=== PATIENT | male | born 1960 | race Asian ===

== ENCOUNTER 2019-12-20 08:45 | Inpatient (IN) | payer MEDICAID ==
[2019-12-20] VITALS (12 sets, daily range): BP systolic 85–156; BP diastolic 43–122
[~2019-12-20] VITALS: Ht 163.8 cm; Wt 80.3 kg
--- NOTE | 2019-12-20 08:49 | NUR ---
NOTIFIED DR HOFFMAN PT IS HAVING SOB, SATURATING 80% ON RA, WHEEZING THROUGHOUT.
--- NOTE | 2019-12-20 08:53 | NUR ---
Dr. Cabrera evaluating pt at bedside
[2019-12-20] MEDS ORDERED: ALBUTEROL SULFATE/IPRATROPIU 3 ML SOL IH ONE ×2 (08:55→09:20)
[2019-12-20] MEDS ORDERED: methylPREDNISolone SS 125 MG/2 ML VIAL IM ONE (08:55)
--- NOTE | 2019-12-20 08:55 | NUR ---
59 y/o m presents to ER c/o shortness of breathe for 2-3 days. Pt was ranging 78%-80% on room air. Pt currently on 4L of O2 NC at 93%. Pt placed in high fowlers position. Pt also c/o cough and dry mouth. Pt c/o chest pain when coughing. Pain level 4/10. Audible wheezing heard throughout. 20 gauge in R. AC established. Blood collected. RT at bedside. Will continue to monitor. Allergies: NKA Med hx: asthma and HTN
--- NOTE | 2019-12-20 09:00 | NUR ---
Pt tripoding on wheelchair. Pt diaphoretic. RT at bedside. Will continue to monitor.
--- NOTE | 2019-12-20 09:06 | NUR ---
pt given solumedrol 125mg IV push per MD order.
--- NOTE | 2019-12-20 09:10 | NUR ---
Breathing treatment administered by respiratory therapist at bedside.
[2019-12-20] MEDS ORDERED: NACL 0.9% 1,000 ML IV ONE ×3 (09:20→10:30)
[2019-12-20] MEDS ORDERED: ALBUTEROL 0.083% 2.5 MG/3 ML NEBU INH ONE ×3 (09:21→10:15)
--- NOTE | 2019-12-20 09:23 | NUR ---
Secondary breathing treatment administered at bedside by respiratory therapist.
[2019-12-20] MEDS ORDERED: MAG SULF 2000 MG/WATER PREMIX 50 ML IV ONE ×2 (09:24→09:25)
[2019-12-20] MEDS ORDERED: MORPHINE SULFATE 4 MG/ML SYR IVP ONE (09:25)
[2019-12-20 09:29] LABS: BASOPHILS % (AUTO) 0.4 % (0.0-2.0); EOSINOPHILS # (AUTO) 0.4 K/uL (0-0.4); EOSINOPHILS % (AUTO) 3.2 % (0.0-4.0); HEMOGLOBIN 16.1 g/dL (12.0-18.0); LYMPHOCYTES # (AUTO) 0.9 K/uL (2.0-11.5); LYMPHOCYTES % (AUTO) 7.3 % (20.5-51.1); MEAN CORPUSCULAR HEMOGLOBIN 31 pg (27-31); MEAN CORPUSCULAR HGB CONC 33 g/dL (33-37); MEAN CORPUSCULAR VOLUME 92.9 fL (80-94); MONOCYTES # (AUTO) 0.8 K/uL (0.8-1.0); MONOCYTES % (AUTO) 6.6 % (1.7-9.3); NEUTROPHILS # (AUTO) 9.7 K/uL (1.8-7.7); NEUTROPHILS % (AUTO) 82.5 % (42.2-75.2); PLATELET COUNT (AUTO) 192 K/uL (140-450); RED BLOOD CELL COUNT(AUTO) 5.27 MIL/uL (4.20-6.10); RED CELL DISTRIBUTION WIDTH 13.7 % (11.6-13.7); WHITE BLOOD COUNT (AUTO) 11.8 K/uL (4.8-10.8)
[2019-12-20] MEDS ORDERED: LORazepam 2 MG/ML VIAL ONE ×3 (09:29→17:05)
--- NOTE | 2019-12-20 09:30 | NUR ---
recived pt in er sob gasping with wheezes hhn rx given pt continued with labored breathing placed pt on bipap with settings as charted pt seem to be christian bipap well at this time pt still with wheezes will continue to monitor pt
--- NOTE | 2019-12-20 09:32 | NUR ---
BIPAP started as requested by Dr. Cabrera. ABG obtained by respiratory therapist
--- NOTE | 2019-12-20 09:36 | NUR ---
RT administering BIPAP
--- NOTE | 2019-12-20 09:49 | NUR ---
Pt appears calm, and relaxed. Pt no longer diaphoretic. Bipap in place. Will continue to monitor.
--- NOTE | 2019-12-20 09:49 | NUR ---
EMT at bedside performing EKG
[2019-12-20] MEDS ORDERED: LORazepam 2 MG/ML VIAL IVP ONE ×2 (09:50→11:30)
[2019-12-20] MEDS ORDERED: IPRATROPIUM 0.02% 0.5 MG/2.5 ML NEBU INH ONE ×2 (09:53→10:15)
[2019-12-20 09:54] LABS: ANION GAP 18.4 (8-16); CARBON DIOXIDE 23.9 mmol/L (21-32); CREATININE 0.9 mg/dL (0.7-1.3); POTASSIUM 3.3 mmol/L (3.5-5.1)
[2019-12-20 10:00] LABS: ALBUMIN 4.3 g/dL (3.4-5.0)
[2019-12-20] MEDS ORDERED: OSELTAMIVIR PHOSPHATE 75 MG CAP PO ONE (10:05)
--- NOTE | 2019-12-20 10:20 | NUR ---
Pt resting in bed with bipap on. Will continue to monitor.
[2019-12-20] MEDS ORDERED: ONDANSETRON 4 MG/2 ML VIAL IM/IVP PRN (10:45)
[2019-12-20] MEDS ORDERED: ALBUTEROL SULFATE/IPRATROPIU 3 ML SOL IH PRN (10:45)
--- NOTE | 2019-12-20 11:20 | NUR ---
Pt appears agitated and restless. ERMD made aware.
--- NOTE | 2019-12-20 11:28 | NUR ---
Pt pulled out IV 20 gauge on Right hand
[2019-12-20] MEDS ORDERED: PIPERACILLIN/TAZOBACTAM 3.375 GM in DEXTROSE 5% 50 ML IV ONE (11:30)
--- NOTE | 2019-12-20 11:30 | NUR ---
Cardiology at bedside evaluating pt. Requesting to be placed in ICU for higher level of care.
[2019-12-20] MEDS ORDERED: LACTOBACILLUS RHAMNOSUS GG 1 EACH CAP PO SCH (11:33)
[2019-12-20 11:48] LABS: BILIRUBIN,URINE NEGATIVE (NEGATIVE); BLOOD, URINE 1+ (NEGATIVE); COLOR,URINE YELLOW (YELLOW); LEUKOCYTE ESTERASE ,URINE NEGATIVE (NEGATIVE); NITRITE, URINE NEGATIVE (NEGATIVE); PH,URINE 5.5 (5.0-9.0); UGLUCOSE NEGATIVE (NEGATIVE)
--- NOTE | 2019-12-20 11:50 | NUR ---
PT ARRIVED FROM ER IN [facility], PT SLEEPY, DIFFICULTY AROUSE, S/P ATIVAN IN ER. RESPONDS TO PAIN, REPORT RECEIVED FROM PARTH, RESP EVEN UNLABORED ON BIPAP, 10/30, O2SAT 98%, 20G IV NS BOLUS INFUSING. SITE WNL. PT PLACED ON SUPERVISOR POULTRY FARM, VITALS STABLE, GOWN CHANGED, SKIN INSPECTED, SKIN INTACT, CALL VILLAFANA WITHIN REACH, SIDE RAILS UP, POC REVIEWED, ALL SAFETY MEASURES IN PLACE.
[2019-12-20 11:53] LABS: BARBITURATE, URINE NEG. ng/ml (NEG <=200); BENZODIAZEPINE, URINE NEG. ng/mL (NEG <=200); CANNABINOID, URINE NEG. ng/mL (NEG <=50); COCAINE, URINE NEG. ng/mL (NEG <=300); OPIATE, URINE POS. ng/mL (NEG <=2000); PHENCYCLIDINE SCREEN,URINE NEG. ng/mL (NEG <=25)
--- NOTE | 2019-12-20 12:01 | NUR ---
Patient will be admitted to care of [facility]. Admited to ICU. Will go to room 8. Belongings list completed. Report to Aishwarya.
--- NOTE | 2019-12-20 12:01 | NUR ---
tTransfer of care and report given to KEMI Neff
--- NOTE | 2019-12-20 12:40 | NUR ---
DR CHAVEZ AND AT BEDSIDE TO DISCUSS CONDITION AND POC VIA TRANSFER ENGINEER PHONE #[phone]
[2019-12-20] MEDS: NACL 0.9% 1,000 ML IV SCH (12:50)
--- NOTE | 2019-12-20 12:51 | NUR ---
CHANGED BIPAP SETTINGS PER MILTON RN AWARE [address]
--- NOTE | 2019-12-20 13:00 | NUR ---
ADMISSION QUESTION INTERVIEW WITH VIA PHONE QUALITY AND RELIABILITY ENGINEER #[phone]. PT BELONGINGS INCLUDING PANTS, BELT, SHOES, ACOSTA IN PANTS, CELL PHONE, T-SHIRT TAKEN HOME WITH .
[2019-12-20] MEDS ORDERED: NITROGLYCERIN 0.4 MG TAB SL PRN (13:10)
[2019-12-20 13:40] LABS: APPEARANCE,URINE SLIGHTLY HAZY (CLEAR); HYALINE CASTS, URINE 0-10 /LPF (None Seen); RBC,URINE 0-5 /HPF (0-5); WBC,URINE 0-5 /HPF (0-5)
[2019-12-20] MEDS ORDERED: PIPERACILLIN/TAZOBACTAM 3.375 GM in DEXTROSE 5% 50 ML IV SCH (14:30)
[2019-12-20] MEDS ORDERED: methylPREDNISolone SS 125 MG/2 ML VIAL IVP SCH ×3 (14:30→22:00)
[2019-12-20] MEDS: FAMOTIDINE 20 MG/2 ML VIAL IV SCH (14:43)
[2019-12-20 14:53] LABS: PROTHROMBIN TIME 9.4 secs (10.8-13.4)
--- NOTE | 2019-12-20 15:20 | NUR ---
PT WITH DIMINISHED BS ON LEFT, POOR AERATION, DR CHAVEZ NOTIFIED, CXR ORDERED.
--- NOTE | 2019-12-20 15:30 | NUR ---
PT STILL SLEEPING QUIETLY, RESP EVEN UNLABORED, O2SAT 95 ON 40% FIO2 BIPAP, IVF INFUSING, VITALS STABLE ON MONITOR, WILL CONTINUE TO MONITOR.
--- NOTE | 2019-12-20 15:46 | NUR ---
CALLED VIA TELEPHONE HORTICULTURE SUPERVISOR REGARDING PICC LINE INSERTION, REFUSES TO CONSENT AT THIS TIME, DR CHAVEZ MADE AWARE.
[2019-12-20 16:11] LABS: AMYLASE 27 U/L (25-115); HDL CHOLESTEROL 42 mg/dL (40-60); LDL (CALC) 119 mg/dL (60-100); LIPASE 57 U/L (73-393); MAGNESIUM 2.4 mg/dL (1.8-2.4); PHOSPHORUS 4.7 mg/dL (2.5-4.9); THYROID STIMULATING HORMONE 0.43 uIU/mL (0.34-3.74); TRIGLYCERIDES 44 mg/dL (30-150)
--- NOTE | 2019-12-20 16:15 | NUR ---
RADIOLOGY AT BEDSIDE FOR XRAY
--- NOTE | 2019-12-20 16:55 | NUR ---
PT NOW AWAKE, SITTING UP IN BED, VERY AGITATED, TAKING OFF BIPAP MASK, RIPPING OFF GOWN, RESP SEVERELY LABORED, O2 SAT 70'S, RT BILL AT BEDSIDE, ATTEMPTING TO GIVE NEB TREATMENT, PT YELLING, PUSHING AWAY, PT EXPLAINED REGARDING HIS NEED FOR TREATMENT, DR CHAVEZ NOTIFIED, ORDER FOR ATIVAN RECEIVED.
[2019-12-20] MEDS: ATORVASTATIN 20 MG TAB PO SCH (17:00)
[2019-12-20] MEDS ORDERED: LORazepam 2 MG/ML VIAL IVP SCH (17:05)
[2019-12-20] MEDS: ALBUTEROL SULFATE/IPRATROPIU 3 ML SOL IH PRN ×2 (17:11→21:16)
[2019-12-20] MEDS: KCL 20 MEQ/WATER INJ PREMIX 200 ML IV PRN (17:20)
--- NOTE | 2019-12-20 17:30 | NUR ---
PT NOW CALMER SLEEPING QUIETLY, BACK ON BIPAP.
--- NOTE | 2019-12-20 18:20 | NUR ---
AT BEDSIDE, INSISTS ON REMOVING BIPAP MASK TO SPEAK WITH HIM, WAS EXPLAINED HIS CONDITION AND IMPORTANCE OF HIM KEEPING CALM ON BIPAP, DAUGHTER SUNG ON THE PHONE PT CONDITION EXPLAINED, DR CHAVEZ AT BEDSIDE, DR CHAVEZ CALLED DAUGHTER SUNJasen TO EXPLAIN PT'S CONDITION AND PLAN OF CARE. [facility] [phone]
[2019-12-20] MEDS: ALBUTEROL SULFATE/IPRATROPIU 3 ML SOL IH SCH (19:13)
[2019-12-20] MEDS: BUDESONIDE 0.5 MG/2 ML NEBU INH SCH (19:13)
--- NOTE | 2019-12-20 19:19 | NUR ---
RECEIVED PATIENT FROM DAY SHIFT ON BIPAP AT 12/5,12,40%. BIPAP PLUGGED INTO RED OUTLET. BMV AT HEAD OF BED. PT IS ASLEEP. WILL CONT TO MONITOR
--- NOTE | 2019-12-20 19:20 | NUR ---
BEDSIDE REPORT GIVEN TO BREAKFAST SUPERVISOR NURSE, PT ON BIPAP, DROWSY, AROUSES WITH LIGHT PAIN. VITALS STABLE ON MONITOR.
--- NOTE | 2019-12-20 19:55 | NUR ---
CALLED TO CHECK IN ON PATIENT. NOTIFIED THAT PATIENT IS RESTING WELL AND NO CHANGES IN CONDITION AT THIS TIME, PATIENT STABLE, ANSWERED ALL QUESTIONS.
--- NOTE | 2019-12-20 20:13 | NUR ---
RECEIVED REPORT FROM DAYSHIFT NURSE AT PATIENTS BEDSIDE, PATIENT RESTING WELL IN BED, EYES CLOSED WITH BIPAP MASK, SETTINGS 12/5, RATE 12, FI02 40%. WHEEZING HEARD.BREATHING IS UNLABORED. PATIENT GETS AROUSED WITH LIGHT TOUCH AND ATTEMPTS TO TAKE OFF BIPAP MASK. REORIENTED THE PATIENT. S1S2, HEARD, SINUS RHYTHM ON MONITOR. ABDOMEN FLAT, NONTENDER WITH ACTIVE BOWEL SOUNDS. PATIENT IS CONTINENT WITH URINAL AT BEDSIDE. RIGHT AC 20G, FLUSHED AND PATENT WITHOUT SYMPTOMS, INFUSING NS @ 60ML/HR. SITE IS WRAPPED WITH KERLIX ROLL. RIGHT FOREARM PERIPHERAL IV, 22G, FLUSHED AND PATENT, INFUSING KCL @ 25ML/HR. SKIN IS WARM AND DRY, AFEBRILE. SIDERAILS UP x4, BED LOCKED AND IN LOWEST POSITION, HOB 30 DEGREES. WILL CONTINUE TO MONITOR.
[2019-12-20] MEDS ORDERED: methylPREDNISolone SS 125 MG/2 ML VIAL ONE (20:56)
[2019-12-20] MEDS: OSELTAMIVIR PHOSPHATE 75 MG CAP PO SCH (21:06)
[2019-12-20] MEDS: PIPERACILLIN/TAZOBACTAM 3.375 GM in DEXTROSE 5% 50 ML IV SCH (21:06)
--- NOTE | 2019-12-20 21:13 | NUR ---
pt was taken off bipap for oral medication from nurse. pt was placed on 5l nc for the time being. pt was audible wheezing and gave a prn breathing tx. pt appears anxious and saturation was from 86-90%. pt was placed back on bipap per Dr. lancaster. increased oxygen to 60% and pt saturation is now 95%. terri linton at bedside
[2019-12-20] MEDS: MORPHINE SULFATE 2 MG/ML SYR IVP PRN (21:56)
--- NOTE | 2019-12-20 22:00 | NUR ---
PATIENT COMPLAINING OF PAIN, VERY ANXIOUS AND RESTLESS. PATIENT CRYING AND MOANING CANNOT BE CONSOLED. ADMINISTERED IV PUSH MORPHINE BUT PATIENT THRASHING ARMS ABOUT. RIGHT AC PERIPHERAL IV DISPLACED. REMOVED AND STARTED IV FLUIDS ON RIGHT FOREARM PERIPHERAL IV.
--- NOTE | 2019-12-20 22:22 | NUR ---
PATIENTS HERE TO TRY TO CALM DOWN PATIENT. EXPLAINS THAT PATIENT IS ANXIOUS AND WORRIED ABOUT BEING IN THE HOSPITAL BECAUSE OF HOW EXPENSIVE IT IS. UPDATED PATIENTS ON TREATMENT PLAN AND IMPORTANCE OF COMPLYING WITH BIPAP MASK. EDUCATED ON INTUBATION INDICATIONS. AT BEDSIDE WITH DROPLET PRECAUTIONS IN PLACE.
[2019-12-20] MEDS ORDERED: PROPOFOL 1000 MG/100 ML PREMIX 100 ML IV ONE (22:48)
--- NOTE | 2019-12-20 22:50 | NUR ---
ABG RESULTS INDICATE INTUBATION NEEDS, ER MD AWARE. PATIENTS AT BEDSIDE AND RESIDENT MD EXPLAINED PROCEDURE. WILL START INTUBATION. RT's AT BEDSIDE, ER MD ORDERED 2 MG ATIVAN, 100 ROCURIONIUM AND 20 ETOMIDATE. INTUBATION SUCCESSFUL ON FIRST TRY. POSITIVE LUNG SOUNDS, SATURATIONS 100% WITH BAGGING, CONNECTED TO VENT. ACVC SETTINGS FI02 60%, RATE 18, TV 500, PEEP 5. WILL CARRY OUT NEW ORDERS.
--- NOTE | 2019-12-20 23:29 | NUR ---
PT INTUBATED AT 2310 ON AC 500,18,+5,60% 7.5@25 TEETH MIDLINE. ANCHOR FAST IS SECURE. VENTILATOR PLUGGED INTO RED OUTLET. BMV AT HEAD OF BED. ALARMS AUDIBLE AND WORKING. PT REMAINS SEDATED. WILL CONT. TO MONITOR.
[2019-12-20] MEDS: METOPROLOL 25 MG TAB PO SCH (23:42)
--- NOTE | 2019-12-20 23:50 | NUR ---
INSERTED OGT PER ORDER, AIR CHECK AND AUSCULTATION POSITIVE. XRAY AT BEDSIDE FOR POST INTUBATION AND OGT INSERTION.
[2019-12-21] VITALS (103 sets, daily range): BP systolic 57–214; BP diastolic 32–119
--- NOTE | 2019-12-21 00:15 | NUR ---
DENTON CATHETER INSERTED, PATIENT TOLERATED WELL. CLEAR YELLOW URINE NOTED.
[2019-12-21] MEDS: PROPOFOL 1000 MG/100 ML PREMIX 100 ML IV PRN ×3 (00:26→08:43)
--- NOTE | 2019-12-21 00:30 | NUR ---
PER MD ORDER, PATIENT STARTED ON PROPOFOL DRIP POST INTUBATION. ORDERS STATE RASS -3, DRY WEIGHT 80KG.
--- NOTE | 2019-12-21 00:40 | NUR ---
PATIENTS INSISTING ON ALLOWING DAUGHTER TO SIGN ALL CONSENT FORMS WHEN SHE ARRIVES TO [place] IN THE MORNING. PROCEDURES AND TREATMENT PLAN EXPLAINED TO AND VERBALIZES UNDERSTANDING BUT STATES SHE IS MORE COMFORTABLE AND PREFERS DAUGHTER TO SIGN CONSENTS. WILL CARRY OUT.
[2019-12-21] MEDS ORDERED: ENALAPRILAT 2.5 MG/2 ML VIAL IVP ONE (00:41)
--- NOTE | 2019-12-21 00:50 | NUR ---
RESIDENT MD MADE AWARE PATIENTS BLOOD PRESSURE MAINTAINING HIGH, SBP 200's. CHANGED BLOOD PRESSURE CUFFF, CHANGED SITES, AND BP STILL HIGH. NEW ORDERS FOR ENALAPRIT 5 MG IVP. WILL CARRY OUT.
[2019-12-21] MEDS ORDERED: ENALAPRILAT 2.5 MG/2 ML VIAL IVP SCH (01:30)
[2019-12-21] MEDS: ALBUTEROL SULFATE/IPRATROPIU 3 ML SOL IH SCH ×6 (01:43→23:14)
--- NOTE | 2019-12-21 01:59 | NUR ---
PER ABG RESULTS. INCREASE RR TO 20. DR ADAM AWARE
--- NOTE | 2019-12-21 02:00 | NUR ---
PATIENTS BLOOD PRESSURE WITHIN NORMAL LIMITS AFTER ADMINISTERING ENALAPRIT 5 MG IVP. IN STABLE CONDITION. ON PROPOFOL DRIP, RASS -3, SIDERAILS UPx4, HOB 30 DEGREES, RESTRAINTS REMOVED TO ASSESS CIRCULATION, NO INJURIES NOTED. Addendum: 12/21/19 at 0507 by Taina Valle RN WRONG TIME ENTRY, CORRECT TIME IS 0130 NOT 0200.
--- NOTE | 2019-12-21 03:15 | NUR ---
PATIENTS BLOOD PRESSURE KEEPS DROPPING LOW AND TRENDING SBP IN 60's-80's BUT PATIENT KEEPS WAKING UP. TITRATING PROPOFOL DOWN. IV MAINTENANCE FLUIDS INFUSING. CHANGED BP CUFF TO DIFFERENT SITE AND SMALLER SIZE. BLOOD PRESSURE BACK WITHIN NORMAL LIMITS.
[2019-12-21] MEDS: NACL 0.9% 1,000 ML IV SCH ×2 (03:53→20:28)
--- NOTE | 2019-12-21 04:12 | NUR ---
SPONGE BATH, ORAL CARE AND CRIS CARE PROVIDED. PATIENT SEDATED RASS -3. TURNED AND REPOSITIONED PATIENT. ETT TO VENT, SATURATIONS ABOVE 95%, FLACC 0. WILL CONTINUE TO MONITOR.
[2019-12-21] MEDS: PIPERACILLIN/TAZOBACTAM 3.375 GM in DEXTROSE 5% 50 ML IV SCH (04:27)
[2019-12-21] MEDS ORDERED: methylPREDNISolone SS 40 MG/ML VIAL IVP SCH ×2 (05:00→10:00)
--- NOTE | 2019-12-21 05:10 | NUR ---
PATIENTS , AND 2 FAMILY FRIENDS ARE AT BEDSIDE FOR UPDATES. VERBALIZES UNDERSTANDING, ALL QUESTIONS AND CONCERNS ANSWERED. RELEASED RESTRAINTS TO ASSESS SKIN, INTACT, NO INJURIES. TURNED AND REPOSITIONED PATIENT.
--- NOTE | 2019-12-21 06:20 | NUR ---
PATIENTS VENT ALARM CONTINUES TO ALARM-SHOWING HIGH PEAK. CONTINUE TO PUSH 100% BUTTON, SUCTIONED PATIENT AND SECURED TUBES. VENT STILL ALARMING, CALLED RT TO CHECK VENT.
[2019-12-21] MEDS ORDERED: ETOMIDATE 20 MG/10 ML VIAL IVP SCH (07:00)
[2019-12-21] MEDS ORDERED: ROCURONIUM 50 MG/5 ML VIAL IV SCH (07:00)
--- NOTE | 2019-12-21 07:30 | NUR ---
BEDSIDE REPORT RECEIVED FROM PEDIATRICS TEACHER NURSE, PT SEDATED TO RASS -3 WITH PROPOFOL DRIP, ETT IN PLACE, FIO2 60 %, VT 550, PEEP 5, RATE 20, BREATH SOUNDS WITH WHEEZING, O2 SAT 89%, + RETRACTIONS, 100% STARTED FOR NOW, RT CALLED FOR EVAL, OGT IN PLACE, ABD SOFT, NON DISTENDED, DENTON INPLACE, DRAINING LIGHT YELLOW URINE, PIV 20G RHAND, 22G FA, SITES WNL, INFUSING PROPOFOL AT 35MCG/KG/MIN, DRY WT 80KG, SKIN WARM DRY COLOR WNL, RESTRAINTS IN PLACE, POC REVIEWED, WILL CONTINUE TO MONTIOR.
[2019-12-21 07:48] LABS: BASOPHILS % (AUTO) 0.1 % (0.0-2.0); EOSINOPHILS % (AUTO) 0.1 % (0.0-4.0); HEMATOCRIT 43.1 % (36-52); HEMOGLOBIN 14.1 g/dL (12.0-18.0); LYMPHOCYTES # (AUTO) 1.1 K/uL (2.0-11.5); LYMPHOCYTES % (AUTO) 5.9 % (20.5-51.1); MEAN CORPUSCULAR HEMOGLOBIN 31 pg (27-31); MEAN CORPUSCULAR HGB CONC 33 g/dL (33-37); MEAN CORPUSCULAR VOLUME 94.7 fL (80-94); MONOCYTES # (AUTO) 0.8 K/uL (0.8-1.0); MONOCYTES % (AUTO) 4.2 % (1.7-9.3); NEUTROPHILS # (AUTO) 16.3 K/uL (1.8-7.7); NEUTROPHILS % (AUTO) 89.7 % (42.2-75.2); PLATELET COUNT (AUTO) 165 K/uL (140-450); RED BLOOD CELL COUNT(AUTO) 4.55 MIL/uL (4.20-6.10); RED CELL DISTRIBUTION WIDTH 13.9 % (11.6-13.7); WHITE BLOOD COUNT (AUTO) 18.2 K/uL (4.8-10.8)
[2019-12-21] MEDS: BUDESONIDE 0.5 MG/2 ML NEBU INH SCH (07:58)
[2019-12-21 08:27] LABS: ANION GAP 12.8 (8-16); CARBON DIOXIDE 25.9 mmol/L (21-32); CREATININE 0.8 mg/dL (0.7-1.3); POTASSIUM 4.7 mmol/L (3.5-5.1)
[2019-12-21 08:28] LABS: MAGNESIUM 2.3 mg/dL (1.8-2.4); PHOSPHORUS 3.1 mg/dL (2.5-4.9)
--- NOTE | 2019-12-21 08:43 | NUR ---
PROPOFOL DRIP DECREASED TO 30MCG/MIN FOR DECREASED BP
[2019-12-21] MEDS: LORATADINE 10 MG TAB PO SCH (08:48)
[2019-12-21] MEDS: LACTOBACILLUS RHAMNOSUS GG 1 EACH CAP PO SCH (08:48)
[2019-12-21] MEDS: OSELTAMIVIR PHOSPHATE 75 MG CAP PO SCH ×2 (08:48→20:16)
--- NOTE | 2019-12-21 08:50 | NUR ---
PT AROUSED NOW TYRING TO SIT UP AND REACHING FOR ETT, DR AGARWAL MADE AWARE 500 ML BOLUS ORDER RECEIVED
--- NOTE | 2019-12-21 08:50 | NUR ---
OGT WITH LARGE AMT OF RESIDUAL, 200ML BROWN LIQ, DR AGARWAL MADE AWARE, WILL HOLD FEEDING FOR NOW.
[2019-12-21] MEDS: METOPROLOL 25 MG TAB PO SCH (09:00)
[2019-12-21] MEDS ORDERED: LISINOPRIL 5 MG TAB PO SCH (09:00)
[2019-12-21] MEDS ORDERED: NACL 0.9% 500 ML IV ONE (09:10)
[2019-12-21] MEDS ORDERED: MORPHINE SULFATE 50 MG in NACL 0.9% 45 ML IV PRN (09:15)
[2019-12-21] MEDS ORDERED: MIDAZOLAM MDV 50 MG in NACL 0.9% 40 ML IV PRN (09:15)
[2019-12-21] MEDS ORDERED: MIDODRINE 5 MG TAB PO SCH (09:15)
--- NOTE | 2019-12-21 09:25 | NUR ---
CALLED DAUGHTER RADHA CALLED FOR PICC LINE CONSENT, SHE WOULD LIKE TO SPEAK TO HER MOTHER BEFORE MAKING DECISION, RADHA WILL CALL US BACK, DR CHAVEZ AWARE.
--- NOTE | 2019-12-21 09:32 | NUR ---
PT RESTLESS, ACCIDENTALLY DISCONNECTED VENT TUBES, DESAT TO 70'S, TUBING RECONNECTED IMMEDIATELY, 100% O2 PROVIDED, SUCTIONED WITH WHITE SECRETIONS, IMPROVED TO 97%.
--- NOTE | 2019-12-21 09:40 | NUR ---
DR LOVE AT BEDSIDE
--- NOTE | 2019-12-21 09:50 | NUR ---
DR. AGATHA LOVE AT BEDSIDE VENTILATOR RATE CHANGED TO 16 NEW ORDER: ABG IN 30 MINS Addendum: 12/21/19 at 1118 by Gilbert Woods RT FLOW INCREASED TO 60; HHN THERAPY DUONEB Q4 ALBUTEROL Q2 X 12 HRS
--- NOTE | 2019-12-21 10:00 | NUR ---
DR CHAVEZ AND AT BEDSIDE, SPEAKING TO DAUGHTER SUNG ON THE PHONE.
--- NOTE | 2019-12-21 10:47 | NUR ---
REVIEWED ABG SAMPLE REPORT WITH DR. JEFFREY CHAVEZ NO NEW ORDERS
--- NOTE | 2019-12-21 10:50 | NUR ---
REVIEWED ABG SAMPLE REPORT WITH DR. AGATHA LOVE NO NEW ORDERS DR. JEFFREY CHAVEZ AWARE OF FOREMENTIONED
[2019-12-21] MEDS: MIDAZOLAM MDV 50 MG in NACL 0.9% 40 ML IV PRN ×2 (11:00→21:23)
[2019-12-21] MEDS: MORPHINE SULFATE 50 MG in NACL 0.9% 45 ML IV PRN ×2 (11:00→21:22)
[2019-12-21] MEDS ORDERED: ALBUTEROL SULFATE/IPRATROPIU 3 ML SOL IH SCH (11:00)
--- NOTE | 2019-12-21 11:00 | NUR ---
MORPHINE AND VERSED DRIP STARTED PER ORDER
[2019-12-21] MEDS ORDERED: VANCOMYCIN PER PHARMACY MC PRN (11:55)
[2019-12-21] MEDS ORDERED: AZITHROMYCIN 500 MG in DEXTROSE 5% 250 ML IV SCH (12:00)
[2019-12-21] MEDS ORDERED: NOREPINEPHRINE 4 MG in DEXTROSE 5% 250 ML IV PRN (12:00)
[2019-12-21] MEDS ORDERED: MAG SULF 2000 MG/WATER PREMIX 50 ML IV ONE (12:00)
[2019-12-21] MEDS: ALBUTEROL 0.083% 2.5 MG/3 ML NEBU INH SCH ×7 (12:16→23:14)
--- NOTE | 2019-12-21 12:16 | NUR ---
STABLE GOOD CHEST RISE INCREASED AERATION THROUGHOUT BILATERAL LUNG OLSEN AIRWAY PATENT FAMILY AT BEDSIDE
[2019-12-21] MEDS: methylPREDNISolone SS 40 MG/ML VIAL IVP SCH ×3 (13:03→23:40)
--- NOTE | 2019-12-21 13:30 | NUR ---
PICC LINE NURSE AT BEDSIDE FOR AICHA PICC PLACEMENT, AWAITING VERIFICATION XRAY.
--- NOTE | 2019-12-21 14:07 | NUR ---
SEDATE NO EVIDENCE OF PULMONARY DISTRESS NOTED EQUAL CHEST RISE ENDOTRACHEAL SUCTION FOR SMALL THICK BROWN SECRETIONS DAUGHTER AT BEDSIDE Addendum: 12/21/19 at 1549 by Gilbert Woods RT SEDATE = SEDATED
--- NOTE | 2019-12-21 15:32 | NUR ---
SEDATED RESTING COMFORTABLY EQUAL CHEST RISE ENDOTRACHEAL SUCTION FOR SMALL SEMI THICK PALE YELLOW TO CLEAR SECRETIONS AIRWAY PATENT SATURATION 99% ON FIO2 OF 60 POST HHN THERAPY TITRATED FIO2 TO 50% JELANI/RN NOTIFIED
[2019-12-21] MEDS: FAMOTIDINE 20 MG/2 ML VIAL IV SCH (15:52)
[2019-12-21] MEDS: VANCOMYCIN 1,000 MG in DEXTROSE 5% 250 ML IV SCH (15:52)
--- NOTE | 2019-12-21 15:55 | NUR ---
RE POSIITONED, PERICARE DONE, BEDBATH GIVEN.
--- NOTE | 2019-12-21 16:02 | NUR ---
DR MCNULTY AT BEDSIDE FOR EVAL, ORDER TO DC AZITHROMYCIN RECEIVED.
--- NOTE | 2019-12-21 16:30 | NUR ---
PT NOW RESTING QUIETLY, RASS -3 ON VERSED AND MORPHINE, INFUSING TO PICC LINE, SITE WNL, ALL SAFETY MEASURES IN PLACE, DAUGHTER SUNG AT BEDSIDE, REMAINS ON RESTRAINTS, DENTON DRAINING WELL, WILL CONTIUE TO JEANIEIOR.
[2019-12-21] MEDS: ATORVASTATIN 20 MG TAB PO SCH (17:00)
--- NOTE | 2019-12-21 17:35 | NUR ---
CALLED DR. AGATHA LOVE [phone] TO REVIEW ABG SAMPLE REPORT LEFT MESSAGE WITH RETURN PHONE NO. [phone]
--- NOTE | 2019-12-21 17:38 | NUR ---
CALLED DR. JOSELINE AGARWAL TO REVIEW ABG SAMPLE REPORT NO NEW ORDERS
--- NOTE | 2019-12-21 18:00 | NUR ---
OGT RESIDUAL <10, TUBE FEEDING STARTED, GLUCERNA AT 10ML/HR, FWF 200/4HRS.
--- NOTE | 2019-12-21 19:04 | NUR ---
RECEIVED PT FROM DAY ON AC 16,550,+5,50%. VENT PLUGGED INTO RED OUTLET. BMV AT HEAD OF BED. ALARMS AUDIBLE AND WORKING. ETT SECURED AT 24 @ THE TEETH WITH AN ANCHOR FAST. FAMILY AT BEDSIDE. WILL CONTINUE TO MONITOR
--- NOTE | 2019-12-21 19:30 | NUR ---
RECEIVED BEDSIDE REPORT FROM MORNING NURSE. PATIENT SEDATED RASS -3 WITH MORPHINE AND VERSED. ETT TO VENT WITH A/C MODE FIO2 50%, VT 550, RATE 16, PEEP 5. OGT TO FEEDING WITH GLUCERNA 1.2 10ML/HR WITH FWF 200ML Q4. NO ACUTE RESPIRATORY DISTRESS NOTED. PICC LINE TO RIGHT UPPER ARM WITH VERSED 5MG/HR AND MORPHINE 5MG/HR. NS 60ML/HR. DENTON CATH IN PLACE WITH CLEAR YELLOW URINE DRAINING. SKIN INTACT. BILATERAL SOFT RESTRAINTS IN PLACE FOR SAFETY. FLACC 0. BED IN LOW POSITION, BILATERAL SIDERAILS UP. CALL LIGHT WITHIN REACH. WILL CONTINUE TO MONITOR.
[2019-12-21] MEDS: PANTOPRAZOLE 40 MG INJ VIAL IVP SCH (20:16)
--- NOTE | 2019-12-21 21:30 | NUR ---
ADMINISTERED SCHEDULE MEDICATIONS ORDERED. FLACC 0. NO ACUTE DISTRESS NOTED. FAMILY MEMBER AT BEDSIDE. WILL CONTINUE TO MONITOR.
--- NOTE | 2019-12-21 22:45 | NUR ---
TRIED TO GO CT HEAD WITHOUT CONTRAST, BUT PATIENT CAN NOT TOLERATE.
[2019-12-22] VITALS (67 sets, daily range): BP systolic 75–132; BP diastolic 48–85
[2019-12-22] MEDS ORDERED: ALBUTEROL SULFATE/IPRATROPIU 3 ML SOL IH PRN
--- NOTE | 2019-12-22 | NUR ---
FEEDING RATE INCREASED TO 20ML/HR. RESIDUAL LESS THAN 20CC NOTED. WILL CONTINUE TO MONITOR.
--- NOTE | 2019-12-22 00:20 | NUR ---
VENT KEEP PEEPING FOR PEAK HIGH. NOTIFIED TO RT. WITHOUT PEEPING, NO ACUTE DISTRESS NOTED. FLACC 0. WILL CONTINUE TO MONITOR.
--- NOTE | 2019-12-22 02:30 | NUR ---
FLACC 0. SEDATED RASS -3. NO ACUTE DISTRESS NOTED. WILL CONTINUE TO MONITOR.
[2019-12-22] MEDS: ALBUTEROL SULFATE/IPRATROPIU 3 ML SOL IH SCH ×5 (02:53→19:25)
[2019-12-22] MEDS: VANCOMYCIN 1,000 MG in DEXTROSE 5% 250 ML IV SCH ×2 (03:50→17:00)
[2019-12-22] MEDS: methylPREDNISolone SS 40 MG/ML VIAL IVP SCH (05:45)
--- NOTE | 2019-12-22 06:00 | NUR ---
NO ACUTE DISTRESS NOTED. FLACC 0. VSS. FEEDING RATE INCREASED TO 30 ML/HR. RESIDUAL CHECKED 15CC NOTED. WILL CONTINUE TO MONITOR.
[2019-12-22 06:44] LABS: HEMATOCRIT 39.7 % (36-52); HEMOGLOBIN 12.8 g/dL (12.0-18.0); LYMPHOCYTES # (AUTO) 0.5 K/uL (2.0-11.5); LYMPHOCYTES % (AUTO) 3.2 % (20.5-51.1); MEAN CORPUSCULAR HEMOGLOBIN 31 pg (27-31); MEAN CORPUSCULAR HGB CONC 32 g/dL (33-37); MEAN CORPUSCULAR VOLUME 95.2 fL (80-94); MONOCYTES # (AUTO) 0.4 K/uL (0.8-1.0); MONOCYTES % (AUTO) 2.9 % (1.7-9.3); NEUTROPHILS # (AUTO) 14.2 K/uL (1.8-7.7); NEUTROPHILS % (AUTO) 93.9 % (42.2-75.2); PLATELET COUNT (AUTO) 152 K/uL (140-450); RED BLOOD CELL COUNT(AUTO) 4.17 MIL/uL (4.20-6.10); RED CELL DISTRIBUTION WIDTH 14.1 % (11.6-13.7); WHITE BLOOD COUNT (AUTO) 15.1 K/uL (4.8-10.8)
[2019-12-22 06:56] LABS: ANION GAP 9.4 (8-16); CARBON DIOXIDE 28.9 mmol/L (21-32); CREATININE 0.8 mg/dL (0.7-1.3); POTASSIUM 4.3 mmol/L (3.5-5.1)
--- NOTE | 2019-12-22 06:59 | NUR ---
RECEIVED ON A TrashOut R860 VENTILATOR PLUGGED INTO RED OUTLET TOLERATING WELL TO AN ENDOTRACHEAL TUBE #7.5 SECURED AT 24cm WITH AN ANCHOR FAST CUFF PRESSURE CHECKED NOTED AMBU BAG NOTE AT HOB STABLE NO PULMONARY DISTRESS NOTED GOOD EQUAL CHEST RISE AND AERATION THROUGHOUT BILATERAL LUNG OLSEN AIRWAY PATENT Addendum: 12/22/19 at 0715 by Gilbert Woods RT SATURATION 99%ON FIO2 OF 50% POST HHN THERAPY TITRATED FIO2 TO 45% CALLIOPE PLAYER TO NOTIFY DAY/RN
--- NOTE | 2019-12-22 08:00 | NUR ---
RECIEVED REPORT FOR PT WITH RESPIRATORY FAILURE AND IS INTUBATED. VS ARE WDL AT THIS TIME. SEE RESPIRATORY NOTES FOR PARTICULARS.
[2019-12-22 08:10] LABS: T4 (THYROXINE) 7.7 ug/dL (4.5-12.0)
--- NOTE | 2019-12-22 08:43 | NUR ---
PATIENT PRESENTING PULMONARY DISTRESS BILATERAL BREATH SOUNDS COARSE EXP WHEEZE HHN PRN THERAPY GIVEN AT THIS TIME
--- NOTE | 2019-12-22 09:00 | NUR ---
RECIEVED PT WITH HX OF ASTHMA AND WAS FOUND POSITIVE FOR INFLUENZA A AND B. THE PT WAS INTUBATED HE WAS WHEEZING AND DESATURATING. THE PT REMAINS ON THE VENTILATOR WITH VERSED AND MORPHINE DRIPS FOR SEDATION. VS ARE WITHIN DESIRED LIMITS. SEE FLOWSHEETS.
[2019-12-22] MEDS: LORATADINE 10 MG TAB PO SCH (09:17)
[2019-12-22] MEDS: PANTOPRAZOLE 40 MG INJ VIAL IVP SCH ×2 (09:17→20:25)
--- NOTE | 2019-12-22 09:18 | NUR ---
PATIENT HAS BEEN SCREENED AND CATEGORIZED HIGH NUTRITION RISK. PATIENT WILL BE SEEN WITHIN 1-2 DAYS OF ADMISSION. 12/22/[address]
[2019-12-22] MEDS: LACTOBACILLUS RHAMNOSUS GG 1 EACH CAP PO SCH (09:25)
[2019-12-22] MEDS: OSELTAMIVIR PHOSPHATE 75 MG CAP PO SCH ×2 (09:25→20:25)
[2019-12-22] MEDS: MIDAZOLAM MDV 50 MG in NACL 0.9% 40 ML IV PRN ×2 (09:34→23:39)
[2019-12-22] MEDS: MORPHINE SULFATE 50 MG in NACL 0.9% 45 ML IV PRN (09:36)
[2019-12-22] MEDS: methylPREDNISolone SS 125 MG/2 ML VIAL IVP SCH ×2 (09:41→18:42)
--- NOTE | 2019-12-22 10:00 | NUR ---
THE PT WAS ALARMING THE VENTILATOR AND I SPOKE TO THE RESIDENT. HE INCREASED THE DOSE OF SOLUMEDROL WHICH I GAVE.
[2019-12-22] MEDS: BUDESONIDE 0.5 MG/2 ML NEBU INH SCH ×2 (12:18→19:25)
--- NOTE | 2019-12-22 14:05 | NUR ---
VENTILATOR SETTINGS CHANGE BY DR. DONAVAN NUNN AFTER 30 MINS
--- NOTE | 2019-12-22 14:10 | NUR ---
DR RAANGO WAS HERE AND HE ORDERED ME VERBALLY TO GIVE PROPOFOL 10MG IVP. HE THEN EVALUATED THE VENTILATOR PRESSURES TO SEE IF THIS WOULD BE EFFECTIVE FOR THE PT. (6024) DR ARANGO THEN ASKED FOR 50MG OF ROCURONIUM FOR THE SAME PURPOSE. (7330) HE DETERMINED THE PT WOULD DO BETTER WITH THE ROCURONIUM AND HE WOULD PUT AN ORDER FOR A DRIP.
[2019-12-22] MEDS ORDERED: MAG SULF 2000 MG/WATER PREMIX 50 ML IV SCH (14:17)
[2019-12-22] MEDS ORDERED: VECURONIUM 10 MG VIAL IVP SCH (15:00)
[2019-12-22] MEDS ORDERED: FAMOTIDINE 20 MG/2 ML VIAL IV SCH (16:30)
[2019-12-22] MEDS: VECURONIUM 20 MG in NACL 0.9% 100 ML IV SCH (16:40)
--- NOTE | 2019-12-22 16:40 | NUR ---
ORDER FOR VECURONIUM DRIP. WITH THE AID OF PHARMACY/AND CHARGE NURSE WE STARTED THE DRIP AT 0.8MCGS/KG/MIN. WITH BASE WT OF 68.7KG. THE PT HAS BEEN BUCKING THE VENT.
--- NOTE | 2019-12-22 17:19 | NUR ---
12/22/19 RD INITIAL ASSESSMENT COMPLETED PLEASE REFER TO NUTRITION ASSESSMENT UNDER CARE ACTIVITY FOR ESTIMATED NUTRITIONAL NEEDS. 1. RECOMMEND GLUCERNA @ 55 ML/HR W/ PROSOURCE BID -THIS WILL PROVIDE 1704 CALORIES AND 110 GM PROTEIN. THIS WILL PROVIDE > 100% OF PTS KCALS NEEDS AND >100% OF PTS PROTEIN NEEDS. 3. FREE WATER FLUSH: [address] TO FOLLOW-UP 2-3 DAYS, HIGH RISK KRYSTEN BOND RD
--- NOTE | 2019-12-22 17:30 | NUR ---
PATIENT PARALYZE ALL EXTREMITIES FLACCID PATH OF FOUR IS NEGATIVE DECREASED VECURONIUM IV DRIP 0.3/KG/MIN..
--- NOTE | 2019-12-22 17:42 | NUR ---
RADHA ARANGO TO REVIEW [facility] SAMPLE REPORT SHYAM NUNN AM Addendum: 12/22/19 at 1747 by Gilbert KOCH SHYAM = RAMILA
--- NOTE | 2019-12-22 18:30 | NUR ---
CALL CONCHITA LIEBERMAN UPDATE PT. CONDITION PT.IS PARALYZE ALL EXTREMITIES ARE FLACCID NO GAG REFLEX WHEN SUCTION PUPIL REACTING TO LIGHT . VECURONIUM IV DRIP AT 0.2MCG/KG/MIN.VERSED IV DRIP TO TITRATE RASS SCOR -3.
[2019-12-22] MEDS: ATORVASTATIN 20 MG TAB PO SCH (18:42)
--- NOTE | 2019-12-22 19:00 | NUR ---
THE PTS BLOOD PRESSURE DID GO UP FOR A WHILE. BUT WE TITRATED THE MEDS AND HE NORMALIZED. SEE RESPIRATORY NOTES.
--- NOTE | 2019-12-22 19:30 | NUR ---
PT RECEIVED FROM AN SHIFT AM NURSE, PT SEDATED. PT ETT TO VENT. ON ACVC SETTINGS. FIO2 60%, TV 500. RATE 20, PEEP 5. IV SITE PICC AICHA, INFUSING, MORPHINE 5ML/HR, VERSED 5ML/HR, VECURONIUM 0.2MCG/KG/MIN. SINUS RHYTHM ON MONITOR. LUNG SOUNDS CLEAR. ABDOMEN IS SOFT AND ROUND, BOWEL SOUNDS ACTIVE. SKIN INTACT, WARM AND DRY. CAP REFILL LESS THAN [address] SEC[address]. DENTON CATHETER IN PLACE. DRY WEIGHT 68.7 KG. HOB 30 DEGREES, BED LOCKED IN LOWEST POSITION. WILL CONTINUE TO MONITOR. Addendum: 12/22/19 at 2224 by Delfino Berman RN OGT IN PLACE Addendum: 12/22/19 at 222 by Delfino Berman RN RASS -3
--- NOTE | 2019-12-22 19:30 | NUR ---
patient had high peak airway pressures. called dr manzano to change vent mode to pressure control. patient placed on pressure control of 35 rr 20 itime 1.0 and peep 5. patient is on 60% fio2 at this time. ordered abg 1 hr after vent change
--- NOTE | 2019-12-22 19:45 | NUR ---
PT ON ACPC SETTINGS. FIO2 60, P INSP 53, RATE 20, PEEP 5. RASS -3. RESPIRATIONS EVEN AND UNLABORED. CHEST RISE IS SYMMETRICAL. WILL CONTINUE TO MONITOR. Addendum: 12/22/19 at 2231 by Delfino Berman RN VENT SETTINGS CHANGED BY RESPIRATORY THERAPIST.
--- NOTE | 2019-12-22 20:00 | NUR ---
DAUGHTER AT BEDSIDE.
--- NOTE | 2019-12-22 22:15 | NUR ---
DR VIGIL IN TO ASSESS PT.
--- NOTE | 2019-12-22 22:25 | NUR ---
AND DAUGHTER AT BEDSIDE.
--- NOTE | 2019-12-22 23:03 | NUR ---
abg drawn at 2058. abg results good. patient is doing well on pressure control mode. lowered fio2 to 40%
[2019-12-22] MEDS: MORPHINE SULFATE 100 MG in NACL 0.9% 90 ML IV PRN (23:39)
[2019-12-23] VITALS (106 sets, daily range): BP systolic 85–138; BP diastolic 52–78
[2019-12-23] MEDS: DEXT 5% / NACL 0.45% 1,000 ML IV SCH ×2 (00:24→14:45)
[2019-12-23] MEDS: ALBUTEROL SULFATE/IPRATROPIU 3 ML SOL IH SCH ×7 (01:24→23:11)
[2019-12-23] MEDS: methylPREDNISolone SS 125 MG/2 ML VIAL IVP SCH ×3 (02:09→17:17)
[2019-12-23] MEDS ORDERED: EPINEPHrine PFS 0.1 MG/ML SYR IVP SCH (02:45)
[2019-12-23] MEDS ORDERED: RACEPINEPHRINE 2.25% 13.5 MG/0.5 ML NEBU INH ONE (02:54)
[2019-12-23] MEDS ORDERED: MAG SULF 2000 MG/WATER PREMIX 50 ML IV SCH ×2 (03:00→14:00)
[2019-12-23] MEDS ORDERED: RACEPINEPHRINE 2.25% 13.5 MG/0.5 ML NEBU INH SCH (03:15)
--- NOTE | 2019-12-23 03:41 | NUR ---
0315 VAPONEFRIN .5ML GIVEN WITH 3CC NS GIVEN DOWN ET TUBE PER DR MANJARREZ
[2019-12-23 03:43] LABS: BASOPHILS % (AUTO) 0.2 % (0.0-2.0); EOSINOPHILS % (AUTO) 0.1 % (0.0-4.0); HEMATOCRIT 43.4 % (36-52); HEMOGLOBIN 13.9 g/dL (12.0-18.0); LYMPHOCYTES # (AUTO) 0.6 K/uL (2.0-11.5); MEAN CORPUSCULAR HEMOGLOBIN 30 pg (27-31); MEAN CORPUSCULAR HGB CONC 32 g/dL (33-37); MEAN CORPUSCULAR VOLUME 94.7 fL (80-94); MONOCYTES # (AUTO) 1.1 K/uL (0.8-1.0); MONOCYTES % (AUTO) 6.4 % (1.7-9.3); NEUTROPHILS # (AUTO) 14.8 K/uL (1.8-7.7); NEUTROPHILS % (AUTO) 89.7 % (42.2-75.2); PLATELET COUNT (AUTO) 205 K/uL (140-450); RED BLOOD CELL COUNT(AUTO) 4.58 MIL/uL (4.20-6.10); RED CELL DISTRIBUTION WIDTH 14.3 % (11.6-13.7)
[2019-12-23 03:49] LABS: WHITE BLOOD COUNT (AUTO) 16.5 K/uL (4.8-10.8)
[2019-12-23 03:50] LABS: LYMPHOCYTES % (AUTO) 3.6 % (20.5-51.1)
[2019-12-23 03:53] LABS: ANION GAP 11.2 (8-16); CARBON DIOXIDE 27.9 mmol/L (21-32); CREATININE 0.9 mg/dL (0.7-1.3); POTASSIUM 4.1 mmol/L (3.5-5.1)
[2019-12-23 03:56] LABS: MAGNESIUM 3.1 mg/dL (1.8-2.4); PHOSPHORUS 3.2 mg/dL (2.5-4.9)
--- NOTE | 2019-12-23 04:11 | NUR ---
CALLED AFTER HOURS PHARMACY, SPOKE WITH ARLENE. OKAY TO GIVE VANCOMYCIN.
[2019-12-23] MEDS ORDERED: VANCOMYCIN 1,000 MG VIAL ONE ×2 (04:43→04:45)
[2019-12-23] MEDS: VANCOMYCIN 1,000 MG in DEXTROSE 5% 250 ML IV SCH ×2 (04:49→15:29)
--- NOTE | 2019-12-23 06:30 | NUR ---
PT RASS -3, SEDATED. RESPIRATIONS EVEN AND UNLABORED. CHEST RISE IS SYMMETRICAL. SAFETY PRECAUTIONS IN PLACE. WILL CONTINUE TO MONITOR.
[2019-12-23] MEDS: BUDESONIDE 0.5 MG/2 ML NEBU INH SCH ×2 (06:40→19:22)
--- NOTE | 2019-12-23 07:45 | NUR ---
TRAIN -OF- FOUR MONITOR WAS USED TO CHECK NEUROMUSCULAR FUNCTION WITH DAY SHIFT CHARGE NURSE AND PM SHIFT CHARGE NURSE. CALLED PHARMACIST BROCK, NOTIFIED WE MAY HOLD EROS JEAN-BAPTISTE AT THIS TIME. Addendum: 12/23/19 at 1036 by Juan De La Rosa RN SETTING WAS 70 MA WITH MILD TWITCHING.
--- NOTE | 2019-12-23 07:45 | NUR ---
RECEIVED PT FROM PM SHIFT RN. PT SEDATED.BEDSIDE MONITOR SHOWS SR. ETT TO VENT WITH SETTING FIO2=40%, A/C PC, PINSP 35, AC 20, TINSP 0.7, PEEP 5. NO S/S OF RESPIRATORY DISTRESS NOTED. OG TUBE IN PLACE. NO TUBE FEEDING AT THIS TIME. PT HAS PICC LINE TO RIGHT UPPER ARM RUNNING MORPHINE AT 6 MG/HR, VERSED AT 6 MG/HR. RASS -3. D51/2 NS AT 165 CC/HR AND NORCURON ( BAG IS EMPTY, ON HOLD AT THIS TIME). PT HAS SOFT RESTRAIN TO BOTH WRIST, CIRCULATION WELL. PT ALSO HAS F/C IN PLACE WITH YELLOW SEDIMENT IN URINE NOTED. SCD IN PLACE, NO FEVER, HOB ELEVATED 30 DEGREES WITH LOW BED POSITION, WILL CONTINUE TO MONITOR.
--- NOTE | 2019-12-23 08:30 | NUR ---
DR. GREEN CAME IN TO CHECK PT. NOTIFIED DR. GREEN NORCURON DRIP HOLD. CHECKED NEUROMUSCULAR FUNCTION WITH DR. GREEN AND DAY SHIFT CHARGE NURSE. SETTING AT 40 MA, PT'S HAND TWITCHING NOTED. PER DR. GREEN. OK TO HOLD BUT CONTINUE USE NEEDED FOR HIGH PEAK PRESSURE. CALL HIM TO RESTART.
--- NOTE | 2019-12-23 08:45 | NUR ---
CHECKED STOMACH RESIDUAL 200 CC, DID NOT START TUBE FEEDING.
[2019-12-23] MEDS: LORATADINE 10 MG TAB PO SCH (08:53)
[2019-12-23] MEDS: OSELTAMIVIR PHOSPHATE 75 MG CAP PO SCH ×2 (08:54→21:37)
[2019-12-23] MEDS: PANTOPRAZOLE 40 MG INJ VIAL IVP SCH ×2 (08:54→21:37)
[2019-12-23] MEDS: FAMOTIDINE 20 MG/2 ML VIAL IV SCH (08:54)
[2019-12-23] MEDS: LACTOBACILLUS RHAMNOSUS GG 1 EACH CAP PO SCH (08:55)
[2019-12-23] MEDS: MIDAZOLAM MDV 50 MG in NACL 0.9% 40 ML IV PRN ×2 (09:00→17:59)
--- NOTE | 2019-12-23 11:03 | NUR ---
RECHECKED RESIDUAL 40 CC. STARED TUBE FEEDING AT 100 CC/HR. PLACEMENT CHECKED.
--- NOTE | 2019-12-23 12:56 | NUR ---
CALLED DR. ARANGO, ASKED IS IT OK TO MOVE PT FOR HEAD CT. PER DR. GREEN, IT FINE. ALSO UPDATED PT PEAK PRESSURE 43, SAME TO THIS MORNING. BUT TV BETWEEN [address] ARANGO ORDERED ABG THEN DECIDE TO START NORCURON DRIP OR NOT.
--- NOTE | 2019-12-23 13:43 | NUR ---
CALLED DR. ARANGO, NOTIFIED PH [phone],PCO2=79.5, PO2 87.8. PER DR. ARANGO , HOLD CT UNTIL PT IS STABLE. START NORCURON DRIP FOR 24HRS AND ALSO GIVE MAG SULFATE 2G IV. INFORMED DR. ARANGO PT'S MAG LEVEL HIGH THIS MORNING. DI. ARANGO SAID THAT'S FINE. Addendum: 12/23/19 at 1454 by Juan De La Rosa RN DR. ARANGO ALSO ORDERED ABG AT 1600.
[2019-12-23] MEDS: VECURONIUM 20 MG in NACL 0.9% 100 ML IV SCH (14:13)
[2019-12-23] MEDS: DOCUSATE SODIUM 100 MG GELCAP PO PRN (14:36)
--- NOTE | 2019-12-23 14:36 | NUR ---
PT RESIDUAL CHECKED 200 CC WHEN I GAVE PT COLACE FOR CONSTIPATION. HOLD TUBE FEEDING, WILL RECHECK.
--- NOTE | 2019-12-23 14:42 | NUR ---
DISCHARGE PLANNING: A 59 Y/O MALE PATIENT FROM HOME, WHO CAME IN DUE TO WORSEN UPPER RESPIRATORY SYMPTOM AND SOB. PAST MEDICAL HISTORY INCLUDE ASTHMA AND HTN. INITIAL DIAGNOSIS OF ASTHMA EXACERBATION. CURRENT LABS INCLUDE WBC 16.5, H/H 13.9/43.4, NA/K 140/4.1, BUN/CREA 31/0.9 AND MAG 3.1. ON SOLU MEDROL, VANCO, MEROPENEM AND PROTONIX IV. ORALLY INTUBATED, FIO2 40%. ID, PULMO, CARDIO AND PULMO CONSULTS IN PLACE. DC PLAN PENDING ON PATIENT'S RESPONSE TO TREATMENT. Addendum: 12/24/19 at 1135 by Kylie Massey CM LATE ENTRY: RECEIVED AN ORDER FOR HIGHER LEVEL OF CARE FOR ECMO. TRANSFER AGREEMENT AND CLINICALS FOR [facility] FILLED OUT AND FAXED TO [phone]. CLINICALS SENT WELL TO [facility], [facility] AND [facility]. WILL FOLLOW UP. Addendum: 12/24/19 at 1139 by Kylie Massey CM PER ARA AT [facility], THEY DO NOT DO ECMO. Addendum: 12/24/19 at 1231 by Kylie Massey CM PER ODALYS [facility], WILL REVIEW REFERRAL. PER EDDY OF [facility], THEY DO NOT DO ADULT ECMO. DR. KIRAN MADE AWARE. Addendum: 12/24/19 at 1349 by Kylie Massey CM PER YVONNE [facility], NO ICU OR CCU BEDS AT THIS TIME HOWEVER THEY WILL REVIEW THE REFERRAL. Addendum: 12/24/19 at 1522 by Kylie Massey CM CONTACTED [facility] AT [phone], ABLE TO SPEAK TO MICAELA. SHE STATED THEY COULD NOT ACCEPT THE PATIENT UNTIL THEY RECEIVED THE CONFIRMATION THEAT [facility] HAS BEEN SUBMITTED. CONTACTED JON CARRANZA [facility], HE STATED HE IS JUST WAITING FOR SOME SIGNED PAPER WORKS FROM THE PATIENT'S DAUGHTER TO SUBMIT. WILL FOLLOW UP. Addendum: 12/24/19 at 1540 by Kylie Massey CM MET WITH THE PATIENT'S DAUGHTER SUNG AT THE BEDSIDE, SHE STATED SHE FORGOT THE PAPER WORKS AT HOME. SHE STATED SHE WILL BRING IT TOMORROW. Addendum: 12/24/19 at 1607 by Kylie Massey PER JANNA B[facility] AT [facility], THEY DO NOT DO OUTSIDE ECMO. Addendum: 12/25/19 at 0828 by Kylie Massey PER PRIMARY RN JELANI, PATIENT'S DAUGHTER DID NOT BRING THE MEDICAL YET. CONTACTED PATIENT'S DAUGHTER SUNG AT [phone] TO FOLLOW UP ON THE FORMS, SHE STATED SHE HAVE IT READY HOWEVER SHE WILL BE HERE IN THE HOSPITAL WITH HER MOTHER AROUND 0900. 0824: RECEIVED A CALL FROM MICAELA OF [facility] TO FOLLOW ON MEDICAL APPLICATION. I INFORMED HER THAT I WILL CALL HER BACK SOON WE HAVE THE PAPER WORKS. Addendum: 12/25/19 at 836 by Kylie Massey CM RECEIVED A CALL FROM [facility] STATING THEY STILL DON'T HAVE CICU BEDS, HOWEVER WHEN BED IS AVAILABLE TODAY SHE WILL CALL ME BACK. Addendum: 12/25/19 at 921 by Kylie Massey CM RECEIVED MEDICAL APPLICATION FORM FROM PATIENT'S DAUGHTERAngelica GUERRERO MADE AWARE. Addendum: 12/25/19 at 922 by Kylie Massey CM RECEIVED A CALL FROM [facility] TRANSFER [place], STATING THAT THEY 2 PATIENT'S FOR ECMO TODAY AND THEY DO NOT HAVE THE CAPABILITY TO DO ANOTHER ONE. Addendum: 12/25/19 at 1012 by Kylie Massey CM RECEIVED A CALL FROM [facility], REQUESTING UPDATED ABG AND VITAL SIGNS. SENT TO [phone]. Addendum: 12/25/19 at 1039 by Kylie Massey RECEIVED A CALL FROM [facility] FROM [facility], REQUESTING BRONCH REPORT. SENT TO [phone] Addendum: 12/25/19 at 1209 by Kylie Massey CM PER YVONNE OF [facility], NO CICU BED AVAILABLE YET. Addendum: 12/25/19 at 1636 by Kylie Massey CM PER JON OF [facility], HE SUBMITTED THE APPLICATION ALREADY. CONTACTED [facility] AND SPOKE TO MICAELA AT [facility], I INFORMED HER THAT THE APPLICATION HAVE BEEN SUBMITTED. SHE STATED THEY NEED THE NAME OF THE CASE NUMBER, TYPESETTER APPRENTICE NAME AND PHONE NUMBER. PER JON, PATIENT WILL NOT HAVE A TYPESETTER APPRENTICE YET AND HOPEFULLY NEXT WEEK. CONTACTED [facility], NO ANSWER. LEFT VOICEMAIL. DR. KIRAN MADE AWARE. Addendum: 12/26/19 at 0909 by Kylie Massey CM RECEIVED A CALL FROM [facility] TRANSFER CENTER, SHE STATED THEY DO NOT HAVE CAPABILITIES OF DOING THE ECMO TODAY. THEY HAVE TWO PATIENTS ON ECMO TODAY. Addendum: 12/26/19 at 1502 by Kylie Massey CM 0920: CONTACTED [facility], ABLE TO SPEAK TO MICAELA. SHE STATED THEY CANNOT START THE PROCESS UNTIL THEY HAVE THE NAME OF THE INSTRUCTIONAL LEADER, CONTACT INFO OF THE TYPESETTER APPRENTICE AND CASE NUMBER. I INFORMED HER THAT PER JON TA, WE DO NOT HAVE THE CASE NUMBER AND TYPESETTER APPRENTICE YET AND IT WILL TAKE UP TO A WEEK OR TWO FOR THE TYPESETTER APPRENTICE TO BE ASSIGNED. MICAELA STATED THAT SHE CANNOT DO ANYTHING UNTIL WE HAVE THE CASE NUMBER BECAUSE IT IS THEIR POLICY. Addendum: 12/26/19 at 1509 by Kylie Massey CM JON FROM [employer] IS ON VACATION AND WILL NOT BE BACK UNTIL SUNDAY. PER MAIRA SHE WILL EMAIL ME THE CONTACT INFO OF RANDOLPH ROB FROM [employer] WHO IS COVERING FOR JON. CONTACTED THE PROVIDED PHONE NUMBER ON THE E MAIL HOWEVER IT WAS JON WHO ANSWERED. HE PROVIDED ME WITH RANDOLPH ROB'S NUMBER [phone]. CONTACTED THE PROVIDED NUMBER. RANDOLPH CONFIRMED THAT THE APPLICATION WAS SUBMITTED YESTERDAY AND IT WILL TAKE 2-3 DAYS TO GET UPLOADED TO THE [facility] AND HOPEFULLY WILL HAVE THE CASE NUMBER BY SUNDAY. SHE ALSO STATED THAT IT WILL TAKE MUCH LONGER BECAUSE IT IS A SUNDAY AND THE [facility] IS UNDERSTAFFED ON FRIDAYS. INFORMED HER THAT WE ARE IN THE PROCESS OF TRANSFERRING THE PATIENT TO HIGHER LEVEL OF CARE BUT SINCE WE DO NOT HAVE THE CASE NUMBER [facility] COULD NOT START THE PROCESS. SHE STATED SHE WILL TRY WHAT SHE CAN DO AND WILL CALL ME BACK FOR UPDATES. Addendum: 12/29/19 at 0841 by Kylie Massey CM CONTACTED RANDOLPH ROB OF [employer] AT [phone] TO FOLLOW UP, SHE STATED SHE WILL CALL THE [facility] TODAY AROUND NOON TO FOLLOW UP AND WILL GIVE ME A CALL BACK. WILL FOLLOW UP. Addendum: 12/29/19 at 1111 by Kylie Massey MET WITH THE PATIENT'S DAUGHTER SUNG AT THE BEDSIDE TO PROVIDE UPDATE. ALL QUESTIONS AND CONCERNS ANSWERED. Addendum: 12/29/19 at 1329 by Kylie Massey CM CONTACTED MIRI TO FOLLOW UP. SHE STATED SHE COULD NOT GET A HOLD OF ANYBODY FROM THE [facility] YET. SHE ALSO STATED SHE WILL CONTACT THEM AGAIN AND WILL GIVE ME A CALL BACK SOON SHE GETS AN ANSWER. Addendum: 12/29/19 at 1619 by Kylie Massey CM CONTACTED RANDOLPH DARRON [facility] TO FOLLOW UP ON THE CASE. SHE STATED SHE WAS ABLE TO CONTACT THE COUNTY AND THEY ARE UNABLE TO FIND ANY RECORDS AT THIS TIME. SHE STATED TO FOLLOW UP AGAIN TOMORROW. CHARGE NURSE MADE AWARE. Addendum: 12/29/19 at [address] CM DR[address] KIA PIMENTEL AWARE. Addendum: 12/30/19 at 0910 by Kylie Massey CM CONTACTED JON CARRANZA [facility] TO FOLLOW UP MEDICAL APPLICATION, HE STATED NO ASSIGNED TYPESETTER APPRENTICE YET, HOWEVER MAY USE THE SAME CASE NUMBER FROM 2013 [id number]. HE ALSO STATED THAT THIS CASE IS TO GO TO A SPECIAL DISTRICT BECAUSE IT IS [facility] AND THEY HAVE A SEPARATE DISTRICT FOR LTC/SNF PATIENT. CONTACTED [facility] ALLIE AT [phone], NO ANSWER. LEFT MESSAGE. PER RECORDING THEY CHECK THEIR VOICEMAIL FREQUENT AND WILL CALL BACK WITHIN 15 MINS. WILL FOLLOW UP. Addendum: 12/30/19 at 0922 by Kylie Massey CM RECEIVED A CALL BACK FROM ODALYS OF [facility]. PROVIDED HIM OF THE CASE NUMBER FROM 2013 [id number]. HE STATED HE LEFT SEVERAL MESSAGES FOR JON TO FOLLOW UP ON MEDICAL APPLICATION BUT NO CALL BACK. INFORMED HIM THAT I HAVE BEEN IN CONTACT WITH MICAELA TO UPDATE HER OF THE STATUS. HE ALSO STATED THAT HE WILL KEEP THE CASE OPEN UNTIL THEY GET THE CASE NUMBER, TYPESETTER APPRENTICE AND CONTACT INFO OF THE TYPESETTER APPRENTICE. HE ALSO REQUESTED FOR UPDATED CLINICALS TO BE FAX OVER. CLINICALS SENT TO [phone]. Addendum: 12/31/19 at 1059 by Kylie Massey CM PER DR. ADAM PATIENT DO NOT NEED HIGHER LEVEL OF CARE FOR ECMO ANYMORE AND ORDER HAVE BEEN CANCELLED. CONTACTED [facility] AT [phone], NO ANSWER. LEFT MESSAGE. Addendum: 01/01/20 at 1311 by Kylie Massey CM RECEIVED AN ORDER FOR SNF EVAL FOR PT AND IV LEVAQUIN 750 MG DAILY CONTACTED PATIENT'S DAUGHTER SUNG TO DISCUSS DC PLAN. SHE STATED SHE WILL DISCUSS IT WITH HER MOTHER AND WILL GIVE ME A CALL BACK. Addendum: 01/01/20 at 1415 by Kylie Massey CM MET WITH THE PATIENT'S AT THE BEDSIDE WITH JESSE MEDICAL STUDENT WHO HELPED ME TRANSLATE IN OCCITAN. WE DISCUSSED DC PLAN TO SNF FOR IV ANTIBIOTICS AND PT. SHE STATED THE PATIENT WANTS TO GO HOME. I INFORMED HER THAT I WILL DISCUSS PATIENT'S WISHES WITH THE PHYSICIAN. DR. ADAM MADE AWARE. Addendum: 01/02/20 at 1429 by Kylie Massey CM LATE ENTRY FOR 01/01/2020 PER SHABNAM MERCER, NO MALE BED AT THIS TIME. PER REG OF [facility], NO MALE BEDS AT THIS TIME IN [facility] AND THEIR SISTER FACILITY IN [place]. Addendum: 01/02/20 at 1440 by Kylie Massey CM 0945: RECEIVED AN ORDER FOR HOME HEALTH FOR PT. MET WITH THE PATIENT AT THE BEDSIDE AND DISCUSS DC PLAN. HE STATED TO WAIT FOR HIS DAUGHTER RADHA AND SHE WILL BE HERE AROUND LUNCH TIME. 1019: CONTACTED MINNIE OF [facility] AT [phone]. SHE STATED THEY ONLY SEE PATIENT IN [facility] AND [facility]. 1311: MET WITH THE PATIENT AND HER DAUGHTER RADHA AT THE BEDSIDE TO DISCUSS DC PLANNING AND IS IN AGREEMENT. PER PATIENT'S DAUGHTER THE ADDRESS ON THE FACE SHEET IS THEIR HOME ADDRESS BUT PATIENT WILL BE IN THEIR STORE IN [place] WHILE RECUPERATING. SHE PROVIDED THE ADDRESS [address], [address], [place] [address]. SHE ALSO PROVIDED ME OF HER CONTACT INFO [phone]. CLINICALS, ADDRESS AND CONTACT INFO SENT TO [facility]. CONTACTED [facility] AT [phone], ABLE TO SPEAK TO JIM. SHE CONFIRMED THAT THEY RECEIVED THE REFERRAL AND IN THE PROCESS OF REVIEWING IT. SHE ALSO STATED THAT SHE WILL CALL ME BACK TO LET ME KNOW IF THEY ARE ABLE TO ACCEPT THE PATIENT. Addendum: 01/03/20 at 1455 by Jovanna Garner CM DC PLANNING WBC 19.3 CONTINUE IV ABX LEVAQUIN. PER DR CUMMINGS PT IS NOT STABLE TO BE DISCHARGED DC PLAN TO GO HOME WITH HOME HEALTH. Addendum: 01/05/20 at 1453 by Jovanna Garner DC PLANNING: [facility] CAN NOT ACCEPT PT FOR A DX ASTHMA EXACERBATION , CALLED [facility] THEY DON'T TAKE MEDICAL , [facility] ALSO DON'T TAKE MEDICAL NOTIFIED MD WILL FOLLOW UP.
--- NOTE | 2019-12-23 15:31 | NUR ---
TRAIN -OF- FOUR MONITOR WAS USED TO CHECK NEUROMUSCULAR FUNCTION POSITIVE AT 50 MA. DECREASED NORCURON DRIP TO 0.5 MCG/KG/MIN=10.3 MLS/HR. DR. ARANGO CAME THIS MORNING SAID OK TO KEEP POSITIVE AT 40 MA. Addendum: 12/23/19 at 1611 by Juan De La Rosa RN AT 1531, RESIDUAL CHECKED 60 CC, RESTARTED TUBE FEEDING .
--- NOTE | 2019-12-23 16:00 | NUR ---
TRAIN -OF- FOUR MONITOR WAS USED TO CHECK NEUROMUSCULAR FUNCTION POSITIVE AT 60 MA. DECREASED NORCURON DRIP TO 0.2 MCG/KG/MIN=4.12 MLS/HR.
--- NOTE | 2019-12-23 16:47 | NUR ---
ARLINE REPORTED TO DR ARANGO NO CHANGES MADE ARLINE AM
[2019-12-23] MEDS: ATORVASTATIN 20 MG TAB PO SCH (17:18)
[2019-12-23] MEDS: MORPHINE SULFATE 100 MG in NACL 0.9% 90 ML IV PRN (17:57)
--- NOTE | 2019-12-23 18:00 | NUR ---
CALLED DR. MANJARREZ AT 1730 , NOTIFIED URINE OUTPUT [address] MANJARREZ ORDERED BLADDER SCAN. SCANNED BLADDER, SHOWS ABOUT 120 CC URINE, FLUSHED WITH SALINE, AFTER THAT URINE CAME OUT ABOUT 200 CC.
--- NOTE | 2019-12-23 18:19 | NUR ---
CALLED DR. ARANGO , NOTIFIED TRAIN -OF- FOUR MONITOR WAS USED TO CHECK NEUROMUSCULAR FUNCTION POSITIVE AT 50 MA. NORCURON DRIP @ 0.2 MCG/KG/MIN=4.12 MLS/HR. VERSED AND MORPHINE DRIP ALSO DECREASED. PT HR 56, BP 86/52. PER DR. ARANGO START DOPAMINE DRIP TO KEEP SBP ABOVE 90, WILL CARRY OUT. Addendum: 12/23/19 at 1958 by Juan De La Rosa RN SAID DON'T WORRY ABOUT NORCURON DRIP.JUST KEEP IT.
[2019-12-23] MEDS ORDERED: DOPamine 400 MG/D5W PREMIX 250 ML IV PRN (18:25)
--- NOTE | 2019-12-23 18:40 | NUR ---
DR. ARANGO CALLED IN, ORDERED EPINEPHRINE DRIP START AT 5 MCG/MIN TO KEEP SBP ABOVE 90, CALL MD IF SBP > 140. Addendum: 12/23/19 at 1844 by Juan De La Rosa RN DR. ARANGO SAID DO NOT START DOPAMINE DRIP.
--- NOTE | 2019-12-23 18:50 | NUR ---
CALLED DR. ARANGO AGAIN BECAUSE PHARMACIST CALLED ME PER PROTOCOL, EPI SHOULD START AT 1-4 MCG/MIN, MAX 10 MCG/MIN. PER DR. ARANGO . OK TO START AT 2 MCG/MIN, NO MORE THAN 5 MCG/MIN. WILL CARRY OUT.
--- NOTE | 2019-12-23 19:15 | NUR ---
ENDORSED PT TO PM SHIFT RN. EXPLAINED ALL THE DRIPS ORDER TO NEXT SHIFT . PT HR ABOVE 60 AT THIS TIME.
[2019-12-23] MEDS: EPINEPHrine 1:1000 (1 mg/mL) 1 MG in DEXTROSE 5% 250 ML IV PRN (19:16)
--- NOTE | 2019-12-23 19:25 | NUR ---
RECEIVED PT FROM DAY SHIFT ON AN AC PC 35,RR20,I-TIME.70,+5,30%. VENT PLUGGED INTO RED OUTLET. BMV AT BEDSIDE. ALARMS AUDIBLE AND WORKING. ETT SECURED AT 7.5 @23 GUM WITH AN ANCHORFAST. PT RECEIVED BREATHING TX. PT RECEIVING VT OF 300-350 ON PRESSURECONTROL. SATURATION IS GOOD.WILL CONT TO MONITOR.
--- NOTE | 2019-12-23 19:30 | NUR ---
PT RECEIVED FROM AM SHIFT NURSE. PT SEDATED, RASS -3. PT ETT TO VENT. ON A/C PC SETTINGS. FIO2 30%, PISNP 35%, RATE 20, PEEP 5. LUNG SOUNDS RHONCHI. IV SITE, AICHA PICC LINE, INFUSING MORPHINE 4ML/HR, VERSED 4ML/HR, AND EPINEPHRINE 2 ML/HR. R HAND 22 GAUGE, INFUSING NS 60ML/HR. R FOREARM 22 GUAGE, IN PLACE, INTACT, PATENT, GOOD BLOOD RETURN. ABDOMEN SOFT AND ROUND, BOWEL SOUNDS ACTIVE. OGT TO FEEDING. DENTON CATHETER IN PLACE. PT ON BILAT SOFT RESTRAINTS. SCDs ON BILAT LOWER EXTREMITIES. DRY WEIGHT 68.7KG. HOB 30 DEGREES. BED LOCKED IN LOWEST POSITION. WILL CONTINUE TO MONITOR.
--- NOTE | 2019-12-23 20:00 | NUR ---
TRAIN -OF- FOUR MONITOR WAS USED TO CHECK NEUROMUSCULAR FUNCTION POSITIVE AT 30 MA. INCREASED NORCURON DRIP TO 0.5 MCG/KG/MIN=10.3 MLS/HR.
--- NOTE | 2019-12-23 20:30 | NUR ---
TRAIN -OF- FOUR MONITOR WAS USED TO CHECK NEUROMUSCULAR FUNCTION POSITIVE AT 40 MA.
[2019-12-23] MEDS ORDERED: AZITHROMYCIN 500 MG in DEXTROSE 5% 250 ML IV SCH (21:00)
[2019-12-23] MEDS ORDERED: KETAMINE 500 MG/5 ML VIAL IVP SCH (21:00)
--- NOTE | 2019-12-23 22:40 | NUR ---
KETAMINE IVP DONE BY DR MANJARREZ. TO TRIAL CHECK IF PEAK PRESSURES BECOME LOW. WILL MONITOR PEAK PRESSURES FOR 30 MINUTES. RT AT BEDSIDE.
--- NOTE | 2019-12-23 23:00 | NUR ---
RT NOTIFIED ME THAT PEAK PRESSURES DID NOT GO DOWN. DR MANJARREZ MADE AWARE.
[2019-12-24] VITALS (105 sets, daily range): BP systolic 81–185; BP diastolic 50–112
[2019-12-24] MEDS: VECURONIUM 20 MG in NACL 0.9% 100 ML IV SCH (02:13)
[2019-12-24] MEDS: methylPREDNISolone SS 125 MG/2 ML VIAL IVP SCH ×4 (02:16→20:37)
[2019-12-24] MEDS: ALBUTEROL SULFATE/IPRATROPIU 3 ML SOL IH SCH ×6 (02:52→23:15)
[2019-12-24] MEDS: VANCOMYCIN 1,000 MG in DEXTROSE 5% 250 ML IV SCH ×2 (03:19→15:37)
[2019-12-24] MEDS: MIDAZOLAM MDV 50 MG in NACL 0.9% 40 ML IV PRN ×3 (03:38→19:01)
[2019-12-24] MEDS: EPINEPHrine 1:1000 (1 mg/mL) 1 MG in DEXTROSE 5% 250 ML IV PRN ×3 (03:43→19:00)
--- NOTE | 2019-12-24 05:10 | NUR ---
SPOKE TO DR. GARCIA COVERING FOR DR. ARANGO WITH ABG RESULTS. TOLD ME TO INCREASE RESPIRATORY RATE FROM 20 TO 26 AND EXTEND THE EXPIRATORY TIME TO HAVE THE PATIENT BLOW OFF THE CO2 HE IS RETAINING. HE ALSO SAID TO GET ANOTHER ABG IN ABOUT AN HOUR TO SEE IF ANYTHING HAS IMPROVED. IF NOT IMPROVED, GO BACK TO PREVIOUS SETTINGS.
--- NOTE | 2019-12-24 05:30 | NUR ---
SPOKE TO DR GARCIA COVERING DR ARANGO. I TRIED INCREASING RR FROM 20-26 BUT PT WAS RECEIVING ONLY VT OF 150-180. SAID TO PLACE PATIENT ON AC VC OF 20,450,+5,40%. WILL GET AN ABG IN ABOUT AN HOUR
--- NOTE | 2019-12-24 06:00 | NUR ---
TRAIN -OF- FOUR MONITOR WAS USED TO CHECK NEUROMUSCULAR FUNCTION POSITIVE AT 60 MA. DECREASED NORCURON DRIP TO 0.2 MCG/KG/MIN = 4.12 MLS/HR.
[2019-12-24 06:20] LABS: HEMATOCRIT 43.1 % (36-52); HEMOGLOBIN 13.6 g/dL (12.0-18.0); MEAN CORPUSCULAR HEMOGLOBIN 31 pg (27-31); MEAN CORPUSCULAR HGB CONC 32 g/dL (33-37); MEAN CORPUSCULAR VOLUME 96.5 fL (80-94); PLATELET COUNT (AUTO) 187 K/uL (140-450); RED BLOOD CELL COUNT(AUTO) 4.46 MIL/uL (4.20-6.10); RED CELL DISTRIBUTION WIDTH 14.7 % (11.6-13.7)
[2019-12-24 06:27] LABS: PHOSPHORUS 4.5 mg/dL (2.5-4.9)
[2019-12-24 06:28] LABS: ANION GAP 8.3 (8-16); CARBON DIOXIDE 30.1 mmol/L (21-32); POTASSIUM 5.4 mmol/L (3.5-5.1)
--- NOTE | 2019-12-24 06:30 | NUR ---
TRAIN -OF- FOUR MONITOR WAS USED TO CHECK NEUROMUSCULAR FUNCTION POSITIVE AT 40 MA.
[2019-12-24] MEDS: BLOOD GLUCOSE MONITORING 1 DEV DEV FS SCH ×4 (07:30→20:43)
--- NOTE | 2019-12-24 07:30 | NUR ---
RECEIVED PT FROM PM SHIFT RN. PT SEDATED.BEDSIDE MONITOR SHOWS SR. ETT TO VENT WITH SETTING FIO2=40%, A/C VC, yh=028,PEEP 5. BEDSIDE VENT SHOWS PEAK PRESSURE 50 AND TIDAL VOLUME 234. OG TUBE IN PLACE RUNNING AT GLUCERNA 1.2 AT 40 CC/HR WITH WATER FLUSH 130 CC Q 6 HRS. PT HAS PICC LINE TO RIGHT UPPER ARM RUNNING MORPHINE AT 8 MG/HR, VERSED AT 8 MG/HR. RASS -3. D51/2 NS AT 60 CC/HR AND NORCURON AT 0.2 MCG/KG/MIN. PT HAS SOFT RESTRAIN TO BOTH WRIST, CIRCULATION WELL. PT ALSO HAS F/C IN PLACE WITH YELLOW URINE NOTED. SCD IN PLACE, NO FEVER, HOB ELEVATED 30 DEGREES WITH LOW BED POSITION, WILL CONTINUE TO MONITOR.
--- NOTE | 2019-12-24 07:40 | NUR ---
VENT MACHINE BEEPING, BEDSIDE MONITOR SHOWS O2 SATS DECREASED TO 44%, CALLED RT, SUCTIONED PT AND INCREASED FIO2 TO 100%.
[2019-12-24] MEDS: BUDESONIDE 0.5 MG/2 ML NEBU INH SCH ×2 (07:46→19:42)
--- NOTE | 2019-12-24 07:46 | NUR ---
REC'D PT ON [place]ES[place] VENT SETTINGS AC 20 VT 450 PEEP 5 FIO2 100% ALARMS ON AND AUDIBLE AND VENT IS PLUGGED INTO RED OUTLET AMBU BAG AT HOB, I\L TX GIVEN WITH DUONEB 3ML AND PULMICORT 0.5MG WITH NO ADVERSE REACTION POST TX B\S ARE WHEEZING BILATERALLY, SXN PT SMALL AMT OF CLEAR SECRETIONS, PT IS ORALLY INTUBATED WITH 7.5 ET TUBE SECURED WITH ANCHOR FAST AT 23 CM PT IS RESTING
[2019-12-24 07:48] LABS: LYMPHOCYTES % (MANUAL) 4 % (20-46); MONOCYTES % (MANUAL) 6 % (5-12)
[2019-12-24] MEDS ORDERED: DEXTROSE 50% 50 ML SYR IVP PRN (08:00)
[2019-12-24] MEDS: INSULIN LISPRO SLIDING SCALE 100 UNITS/ML VIAL SUBQ PRN ×4 (08:00→20:44)
--- NOTE | 2019-12-24 08:04 | NUR ---
dr. manzano in to checked. verbal ordered vecuronium 10 mg ivp, dr. manzano checked TOF no response. Dr. manzano ordered to increase epi rate from 2 mcg/min to 5 mcg/min and vecuronium from 0.2 mcg/kg/min to 0.4 mcg/kg/min , carried out. dr. morris will start arterial line placement.
--- NOTE | 2019-12-24 08:30 | NUR ---
DR. ARANGO AT BEDSIDE TO BRONCH PT SXN SMALL AMT OF THICK BROWN SECRETIONS .
--- NOTE | 2019-12-24 08:35 | NUR ---
dr. manzano started to insert femoral line. director of icu cynthia at bedside to help as well. time out form done.
[2019-12-24] MEDS ORDERED: ACETYLCYSTEINE 10% (100 MG/ML) 100 MG/ML VIAL INH SCH (09:20)
[2019-12-24] MEDS: FAMOTIDINE 20 MG/2 ML VIAL IV SCH (09:20)
[2019-12-24] MEDS ORDERED: COMMUNICATION ORDER MC SCH ×2 (09:20→16:45)
[2019-12-24] MEDS: PANTOPRAZOLE 40 MG INJ VIAL IVP SCH ×2 (09:20→20:37)
[2019-12-24] MEDS: MONTELUKAST SODIUM 10 MG TAB PO SCH (09:20)
[2019-12-24] MEDS ORDERED: COMMUNICATION ORDER MC PRN (09:20)
[2019-12-24] MEDS: OSELTAMIVIR PHOSPHATE 75 MG CAP PO SCH ×2 (09:20→20:18)
[2019-12-24] MEDS: LORATADINE 10 MG TAB PO SCH (09:21)
[2019-12-24] MEDS: MORPHINE SULFATE 100 MG in NACL 0.9% 90 ML IV PRN ×2 (09:39→21:56)
[2019-12-24] MEDS: LACTOBACILLUS RHAMNOSUS GG 1 EACH CAP PO SCH (09:59)
[2019-12-24] MEDS: DEXT 5% / NACL 0.45% 1,000 ML IV SCH (10:30)
--- NOTE | 2019-12-24 10:30 | NUR ---
CALLED DR. KIRAN DUE TO HR DROPS TO 47-55S. BP DROPS TO 81/50. VERBALLY ORDERED 0.9 NS BOLUS 1 L. CARRIED OUT. Addendum: 12/24/19 at 2004 by Juan De La Rosa RN DR. KIRAN ALSO STATED INCREASING IVF TO 120 CC/HR.
--- NOTE | 2019-12-24 10:44 | NUR ---
PUBLIC WORKS DIRECTOR assessment/discharge plan Name: [facility] Home / Relationship: Pre-Admission Living Arrangements: Lives with Other Other: family Tentative Discharge Plan Summary: Patient is a 59 year old male with HTN and asthma. Patient is currently intubated. I met with patient's Jb Justice and patient's daughter Dwight Justice. Jb speaks limited Niuean. Dwight speaks Niuean. Patient lives at home with his family and tentative discharge plan at this time is to transfer patient to higher level of care once patient is medically stable. Machine Driller RN will follow up on MD's order for higher level of care. Patient's family was tearful and requested to be alone with patient. They do not need nursing home social worker's assistance at this time. Support Architect and/or Machine Driller will follow up as needed. Signature: EPHRAIM San Date: Dec 24, 2019
[2019-12-24] MEDS ORDERED: EPINEPHrine 1:1000 - 1 MG/ML AMP MC SCH (11:00)
[2019-12-24] MEDS ORDERED: NOREPINEPHRINE 8 MG in DEXTROSE 5% 250 ML IV PRN (11:00)
--- NOTE | 2019-12-24 11:13 | NUR ---
CALLED DR. KIRAN AGAIN, NOTIFIED HR BACK TO 55 AND ABOVE BUT A-LINE SHOWS 203/95. DR. KIRAN ORDERED HOLD BOLUS AND DECREASE EPI DRIP TO 3 MCG/MIN.
[2019-12-24] MEDS ORDERED: NACL 0.9% 1,000 ML IV ONE (11:15)
[2019-12-24] MEDS ORDERED: SODIUM BICARBONATE 8.4% PFS 50 MEQ/50 ML SYR IVP SCH (11:30)
[2019-12-24] MEDS: ACETYLCYSTEINE 10% (100 MG/ML) 100 MG/ML VIAL INH SCH ×4 (11:37→23:15)
[2019-12-24] MEDS: NACL 0.9% IV SCH ×9 (11:39→23:17)
[2019-12-24] MEDS: ROCURONIUM IV SCH ×9 (11:39→23:17)
--- NOTE | 2019-12-24 11:52 | NUR ---
CALLED DR. KIRAN AGAIN, NOTIFIED PT HR INCREASED TO 60 S, BUT SBP STILL 180S. PER DR. KIRAN HOLD EPI DRIP ONCE EPI GIVEN BY ETT. WILL CHECK WITH RT THEN HOLD EPI DRIP.
--- NOTE | 2019-12-24 12:02 | NUR ---
EPINEPHRINE 1MG/ML 0.3MG WERE GIVEN DOWN ET TUBE ADVERSE REACTION POST MEDICATION GIVEN
--- NOTE | 2019-12-24 12:21 | NUR ---
SCREEN FOR LOW GUILLERMO SCALE AT RISK, CONTINUE TO FOLLOW PRESSURE ULCER PREVENTION INTERVENTIONS. -TURN AND REPOSITION PATIENT Q 2H -ASSESS AND MONITOR SKIN CONDITION DURING POSITION CHANGE -OFFLOAD BILATERAL HEELS BY PLACING PILLOWS UNDER CALVES AT ALL TIMES, UNLESS OTHERWISE CONTRAINDICATED -PRESSURE REDISTRIBUTION BY PLACING PILLOWS AND OFFLOADING SACRALCOCCYX -KEEP SKIN CLEAN AND DRY AT ALL TIMES.
--- NOTE | 2019-12-24 12:53 | NUR ---
CAME BACK TO CHECK PT AGAIN. PER DR. ARANGO RESTART EPI DRIP AT 2.5 MCG/MIN CINDY EPI IS FOR ASTHMA NOT FOR HR OR BP. PT ON ROCURONIUM DRIP 1.4 CC/MIN NO TITRATE RATE. DR. ARANGO ALSO AWARE NO TOF TWITCHING. DIRECTOR OF ICU DEBBIE ALSO AT BEDSIDE. Addendum: 12/24/19 at 1957 by Juan De La Rosa RN DR. ARANGO SAID DO NOT TURN PT FOR 24 HRS. DEBBIE, CHARGE NURSE HOLDER AT NURSE STATION ALSO MADE AWARE.
--- NOTE | 2019-12-24 13:19 | NUR ---
checked tube feeding residual zero.
--- NOTE | 2019-12-24 14:46 | NUR ---
checked residual 20 cc. returned it back
[2019-12-24 15:04] LABS: HEMOGLOBIN 14.7 g/dL (12.0-18.0); LYMPHOCYTES # (AUTO) 0.4 K/uL (2.0-11.5); MEAN CORPUSCULAR HEMOGLOBIN 31 pg (27-31); MEAN CORPUSCULAR HGB CONC 33 g/dL (33-37); MEAN CORPUSCULAR VOLUME 94.3 fL (80-94); MONOCYTES # (AUTO) 1.6 K/uL (0.8-1.0); MONOCYTES % (AUTO) 7.9 % (1.7-9.3); NEUTROPHILS # (AUTO) 17.7 K/uL (1.8-7.7); NEUTROPHILS % (AUTO) 90.1 % (42.2-75.2); PLATELET COUNT (AUTO) 195 K/uL (140-450); RED BLOOD CELL COUNT(AUTO) 4.78 MIL/uL (4.20-6.10); RED CELL DISTRIBUTION WIDTH 13.8 % (11.6-13.7); WHITE BLOOD COUNT (AUTO) 19.6 K/uL (4.8-10.8)
--- NOTE | 2019-12-24 15:14 | NUR ---
12/24/19 RD FOLLOW UP COMPLETED PLEASE REFER TO NUTRITION ASSESSMENT UNDER CARE ACTIVITY FOR ESTIMATED NUTRITIONAL NEEDS. 1. CONTINUE GLUCERNA 1.2 @ 55 ML/HR W/ PROSOURCE BID DIET TOLERATED --THIS WILL PROVIDE 1704 CALORIES AND 110 GM PROTEIN. THIS WILL PROVIDE >100% OF PTS KCALS NEEDS AND >100% OF PTS PROTEIN NEEDS. 2. FREE WATER FLUSH: 130 ML Q6H 3. RECOMMENDED TO RN TO HOLD & REINITIATE TUBE FEEDING GRADUALLY IF PT IS NOT TOLERATING. 4. RD TO FOLLOW-UP 2-3 DAYS, HIGH RISK KRYSTEN BOND RD
[2019-12-24 15:31] LABS: ANION GAP 14.7 (8-16); CARBON DIOXIDE 28.4 mmol/L (21-32); CREATININE 0.9 mg/dL (0.7-1.3); POTASSIUM 4.1 mmol/L (3.5-5.1)
--- NOTE | 2019-12-24 16:00 | NUR ---
PT NO FEVER, TEMP SHOWS 98.6F
--- NOTE | 2019-12-24 16:15 | NUR ---
CALLED DR. ARANGO, NOTIFIED PT IVF + VECURONIUM DRIP MORE THAN 200 CC/HR, PT BP 170S /100S, PER DR. ARANGO D/C IVF AND INCREASE MORPHINE DRIP TO 10 CC/HR. CARRIED OUT.
[2019-12-24] MEDS: DOCUSATE SODIUM 100 MG GELCAP PO PRN (16:54)
[2019-12-24] MEDS: ATORVASTATIN 20 MG TAB PO SCH (16:54)
--- NOTE | 2019-12-24 17:04 | NUR ---
CHECKED TUBE FEEDING RESIDUAL 80 CC, PLUS GIVE MEDICATION ABOUT 20 CC, SO HOLD TUBE FEEDING NOW, WILL RECHECK IN ONE HOUR. PT DAUGHTER JANET AT BEDSIDE. EXPLAINED TO PT'S DAUGHTER I WOULD HOLD TUBE FEEDING , PT'S DAUGHTER VERBALIZED UNDERSTANDING.
[2019-12-24 17:53] LABS: ANION GAP 13.8 (8-16); CREATININE 0.9 mg/dL (0.7-1.3); POTASSIUM 3.8 mmol/L (3.5-5.1)
--- NOTE | 2019-12-24 18:41 | NUR ---
RESIDUAL CHECKED 50 CC, RETURNED IT BACK .
--- NOTE | 2019-12-24 19:15 | NUR ---
ENDOSED PT TO PM SHIFT RN. DRIPS ORDERS EXPLAINED TO NEXT SHIFT RN. TOLD NEXT SHIFT RN AND CHARGE NURSE, RT DO NOT TURN PT PER DR. ARANGO VERBAL ORDER.
--- NOTE | 2019-12-24 19:30 | NUR ---
RECEIVED REPORT FROM AM SHIFT NURSE. PT SEDATED AND ON PARALYTIC. PT ETT TO VENT. ON A/C PC MODE, FIO2 30, PINSP 38, RATE 30, PEEP 8. HEART SOUNDS HEARD, S1 AND S2. SINUS RHYTHM ON HYDRAULIC SPINNER. LUNG SOUNDS WHEEZING. AICHA PICC LINE IN PLACE, DRY INTACT. INFUSING ROCURONIUM 84 CC/HR, VERSED 8MG/HR, MORPHINE 10MG/HR, AND EPINEPRHINE 2.5 MCG/MIN. DRY WEIGHT 68.7KG. ABDOMEN SOFT AND ROUND, BOWEL SOUNDS ACTIVE. OGT TO FEEDING. R FEMORAL A LINE IN PLACE. SKIN INTACT, WARM AND DRY. CAP REFILL LESS THAN 2 SEC[address]DS. DENTON CATHETER IN PLACE. WILL CONTINUE TO MONITOR. HOB 30 DEGREES. BED LOCKED IN LOWEST POSITION. Addendum: 12/24/19 at 2129 by Delfino Berman RN RESIDUALS 5 ML. PT TOLERATING WELL.
--- NOTE | 2019-12-24 20:12 | NUR ---
RCV'D PT INTUBATED WITH 7.5 ETT AT 23 CM. PT IS NOT ALERT. PT ON MECHANICAL VENTILATION WITH CHARTED SETTINGS. ALARMS AUDIBLE. ETT IS IN PLACE AND SECURED. HHN TX OF DUONEB,MUCOMYST 10% 1ML, AND PULMICORT 0.5 MG GIVEN WITH NO ADVERSE REACTION. PT TOLERATED WELL.VENT IS CONNECTED TO RED OUTLET. ALARMS AUDIBLE. AMBU BAG AT BEDSIDE. NO SOB OR DISTRESS NOTED. WILL CONTINUE TO MONITOR.
--- NOTE | 2019-12-24 20:44 | NUR ---
BLOOD SUGAR 201, 4 UNITS OF HUMALOG INSULIN GIVEN SUBQ.
--- NOTE | 2019-12-24 22:00 | NUR ---
FEVER 100.3 NOTED, DR VIGIL MADE AWARE. ORDERS FOR URINE AND BLOOD CULTURE.
[2019-12-24] MEDS: ACETAMINOPHEN 325 MG TAB PO PRN (23:28)
--- NOTE | 2019-12-24 23:28 | NUR ---
FEVER OF 100.8, ACETAMINOPHEN PRN ORDER GIVEN.
--- NOTE | 2019-12-24 23:30 | NUR ---
RECEIVED CALL FROMDOTTY AT [facility] [place] ADMITTING. REGARDING TRANSFER FOR HIGHER LEVEL OF CARE. UPDATED HIM ON DROPLET PRECAUTIONS AND THAT PT IS ON VENTILATOR.
--- NOTE | 2019-12-24 23:47 | NUR ---
SPOKE WITH MD MANJARREZ SHE ORDERED EPI TO BE GIVEN THRU ETT BUT ORDER IS NOT COMING UP IN [facility] (NOT ALLOWING TO TAKE IT) AND NOT SHOWING IN [facility] BUT SHOWING COMMUNICATION ORDER. SPOKE WITH [facility] FOR ORDER VERIFICATION BUT PHARMACY IS NOT SURE FROM ORDER AND NEEDS TO SPEAK MD MANJARREZ. RT CALLED ME MANJARREZ AND EXPLAINED SITUATION AND PROVIDED PHARMACY NUMBER FOR THEM TO COMMUNICATE.
[2019-12-25] VITALS (102 sets, daily range): BP systolic 83–211; BP diastolic 38–114
--- NOTE | 2019-12-25 | NUR ---
PAGED DR ARANGO. SPOKE WITH [employer] MECHANIC DR. NAGEL REGARDING BLOOD PRESSURE IN 160'S AND 170'S. ORDERS TO GIVE HYDRALAZINE 10MG IVP Q4H PRN FOR SBP > 160.
[2019-12-25] MEDS: MIDAZOLAM MDV 50 MG in NACL 0.9% 40 ML IV PRN ×4 (00:21→19:04)
[2019-12-25] MEDS: hydrALAZINE 20 MG/ML VIAL IVP PRN ×2 (01:28→05:39)
[2019-12-25] MEDS: EPINEPHrine 1:1000 (1 mg/mL) 1 MG in DEXTROSE 5% 250 ML IV PRN ×2 (01:29→09:07)
[2019-12-25] MEDS: NACL 0.9% IV SCH ×8 (01:31→22:03)
[2019-12-25] MEDS: ROCURONIUM IV SCH ×8 (01:31→22:03)
--- NOTE | 2019-12-25 02:01 | NUR ---
ORAL CARE PROVIDED. RESPIRATIONS EVEN AND UNLABORED. CHEST RISE SYMMETRICAL. NO S/S OF DISTRESS NOTED. HOB 30 DEGREES, BED LOCKED IN LOWEST POSITION. WILL CONTINUE TO MONITOR.
[2019-12-25] MEDS: VANCOMYCIN 1,000 MG in DEXTROSE 5% 250 ML IV SCH ×2 (02:54→14:40)
[2019-12-25] MEDS: ACETYLCYSTEINE 10% (100 MG/ML) 100 MG/ML VIAL INH SCH ×6 (03:17→23:19)
[2019-12-25] MEDS: ALBUTEROL SULFATE/IPRATROPIU 3 ML SOL IH SCH ×6 (03:17→23:19)
--- NOTE | 2019-12-25 04:00 | NUR ---
DR MANJARREZ MADE AWARE OF ELEVATED BLOOD PRESSURE, ORDERS RECEIVED TO GIVE VASOTEC.
[2019-12-25] MEDS ORDERED: ENALAPRILAT 2.5 MG/2 ML VIAL IVP SCH (04:03)
[2019-12-25] MEDS: methylPREDNISolone SS 125 MG/2 ML VIAL IVP SCH ×3 (04:08→20:57)
[2019-12-25 06:06] LABS: HEMATOCRIT 44.5 % (36-52); HEMOGLOBIN 14.6 g/dL (12.0-18.0); LYMPHOCYTES # (AUTO) 0.3 K/uL (2.0-11.5); LYMPHOCYTES % (AUTO) 2.2 % (20.5-51.1); MEAN CORPUSCULAR HEMOGLOBIN 31 pg (27-31); MEAN CORPUSCULAR HGB CONC 33 g/dL (33-37); MEAN CORPUSCULAR VOLUME 92.7 fL (80-94); MONOCYTES # (AUTO) 0.9 K/uL (0.8-1.0); MONOCYTES % (AUTO) 5.7 % (1.7-9.3); NEUTROPHILS # (AUTO) 13.7 K/uL (1.8-7.7); NEUTROPHILS % (AUTO) 92.1 % (42.2-75.2); PLATELET COUNT (AUTO) 176 K/uL (140-450); RED CELL DISTRIBUTION WIDTH 13.6 % (11.6-13.7); WHITE BLOOD COUNT (AUTO) 14.8 K/uL (4.8-10.8)
--- NOTE | 2019-12-25 06:15 | NUR ---
PT SEDATED AND ON PARALYTIC. RESPIRATIONS EVEN AND UNLABORED. CHEST RISE IS SYMMETRICAL. NO POSITION CHANGES, ORDERED BY DR ARANGO.
--- NOTE | 2019-12-25 07:00 | NUR ---
RECIVED PT ON VENT WITH SETTINGS CHARTED BREATH SOUNDS PRESENT BILAT DIMINISHED ETT SECURE SXN PT WITH MIN AMT OFF WHITE SECS AMBU BAG AT BEDSIDE WILL CONTINUWE TO MONITOR PT ON VENT VENT PLUGGEDINTO RED OUTLET
[2019-12-25 07:24] LABS: MAGNESIUM 2.4 mg/dL (1.8-2.4); PHOSPHORUS 1.8 mg/dL (2.5-4.9)
--- NOTE | 2019-12-25 07:26 | NUR ---
REPORT GIVEN TO AM SHIFT NURSE. FOR CONTINUITY OF CARE. NO S/S OF DISTRESS NOTED.
[2019-12-25] MEDS: BLOOD GLUCOSE MONITORING 1 DEV DEV FS SCH ×4 (07:30→21:27)
--- NOTE | 2019-12-25 07:30 | NUR ---
BEDSIDE REPORT WAS GIVEN FROM [employer] AND FITNESS COACH NURSE. TOOK OVER PT CARE. ASSESSED PT HOB AT 30 DEGREES, INSPIRATORY WHEEZES THROUGHOUT ALL LOBES. VENT SETTING: ACPC FIO2 30% PINSP 38 RATE 30 TINSP 0.80 PEEP 8. ON ROCURONIUM .018 MG/MIN VERSED 8 MG/HR MORPHINE 10 MG/HR EPI 2.5 MCG/MIN. S1/S2 HEARD. BOWEL SOUNDS HEARD.FEMORAL A-LINE WAS IN PLACE AND TRANSDUCER ZEROED. NO RESIDUAL FROM OG TUBE. FOELY CATHETER IS IN PLACE. YELLOW URINE WITH RESIDUALS WAS SEEN. VTE PRECAUTIONS ARE IN PLACE. ETT AND OG TUBE IN PLACE AND SECURED. NERVE STIMULATOR WAS DONE ON LEFT WRIST W/ NO TWITCHING AT 60 MILLIAMPS.
--- NOTE | 2019-12-25 07:30 | NUR ---
BEDSIDE REPORT RECEIVED FROM PATROL OFFICER NURSE, PT SEDATED TO RASS -3, ETT TO VENT WITH AC/PC FIO2 30%, PIP 38, PEEP 8, RATE 30, NSR ON KAPOK MACHINE OPERATOR, HR 83, ART BP 127/61, O2SAT 95%, A LINE INPLACE IN R FEMORAL, PICC LINE TO AICHA, SITE WNL, INFUSING ROCURONIUM AT 0.01MG/KG/MIN (84ML/HR), VERSED 8MG/HR (8ML/HR), MORPHINE 10MG/HR (10ML/HR), EPI 2.5MCG/MIN, OGT IN PLACE, FEEDING ONGOING AT 40ML/HR, DENTON IN PLACE DRAINING TO GRAVITY, TOF WITHOUT VISIBLE TWITCHING AT 80AMPS, PT ON PARALYTICS, RESTRAINTS REMOVED, ALL SAFETY MEASURES IN PLACE, POC REVIEWED, WILL CONTINUE TO MONITOR.
[2019-12-25] MEDS: BUDESONIDE 0.5 MG/2 ML NEBU INH SCH ×2 (07:43→18:54)
--- NOTE | 2019-12-25 07:50 | NUR ---
DR BOWENS AND MEDICAL TEAM AT BEDSIDE.
--- NOTE | 2019-12-25 08:10 | NUR ---
DR ARANGO AT BEDSIDE FOR EVAL, ORDER TO INCREASE MORPHINE TO 12MG/HR, VERSED TO 10MG/HR, CXR, ABG RECEIVED. NOTIFIED OF INCREASED BP, NOTIFIED OF NO RESPONSE WITH TOF.
--- NOTE | 2019-12-25 08:35 | NUR ---
DECREASED RR TO 20 RN AWARE
[2019-12-25] MEDS: LACTOBACILLUS RHAMNOSUS GG 1 EACH CAP PO SCH (08:54)
[2019-12-25] MEDS: PANTOPRAZOLE 40 MG INJ VIAL IVP SCH ×2 (08:54→20:58)
[2019-12-25] MEDS: LORATADINE 10 MG TAB PO SCH (08:55)
[2019-12-25] MEDS: MONTELUKAST SODIUM 10 MG TAB PO SCH (08:55)
[2019-12-25] MEDS: OSELTAMIVIR PHOSPHATE 75 MG CAP PO SCH ×2 (08:55→20:58)
--- NOTE | 2019-12-25 08:55 | NUR ---
DAUGHTER RADHA CALLED ON THE PHONE, TELEPHONE CONSENT OBTAINED FOR BRONCOSCOPY
[2019-12-25] MEDS ORDERED: SODIUM PHOS / POTASSIUM PHOS 1 PKT PDR NG SCH (09:00)
[2019-12-25] MEDS ORDERED: FUROSEMIDE 20 MG/2 ML VIAL IVP SCH (09:00)
[2019-12-25] MEDS: INSULIN LISPRO SLIDING SCALE 100 UNITS/ML VIAL SUBQ PRN ×4 (09:05→21:39)
--- NOTE | 2019-12-25 09:18 | NUR ---
DR ARANGO AT BEDSIDE FOR BRANCHOSCOPY, RT BILL AT BEDSIDE.
[2019-12-25] MEDS ORDERED: ALBUTEROL 0.083% 2.5 MG/3 ML NEBU INH SCH (09:29)
[2019-12-25 09:43] LABS: ANION GAP 16.5 (8-16); POTASSIUM 3.5 mmol/L (3.5-5.1)
[2019-12-25] MEDS: PROPOFOL 1000 MG/100 ML PREMIX 100 ML IV PRN (09:50)
[2019-12-25] MEDS: MORPHINE SULFATE 100 MG in NACL 0.9% 90 ML IV PRN ×2 (10:20→19:05)
--- NOTE | 2019-12-25 10:28 | NUR ---
OGT RESIDUAL 110ML/HR, WILL CONTINUE FEEDING
--- NOTE | 2019-12-25 12:15 | NUR ---
OGTUBE RESIDUAL >300. TUBE FEEDING WAS HELD.
--- NOTE | 2019-12-25 14:36 | NUR ---
OG RESIDUAL >200. FEEDING STILL HELD
--- NOTE | 2019-12-25 16:07 | NUR ---
PT CONTINUES ON MORPHINE AT 10MG/HR, , VERSED 8MG/HR, ROCURONIUM 0.01MG/MIN, RASS -3, FLACC 0, VENTILATED VIA ETT WITH AC/PC FIO2 40%, PIP 30, PEEP 8, RR 20, AERATION GOOD, O2SAT 97%, VITALS STABLE ON MONITOR, A LINE IN PLACE, DRESSING CHANGED, DENTON IN PLACE, PICC LINE IN PLACE SITE WNL. ALL SAFETY MEASURES IN PLACE, OGT RESIDUAL REMAINS 200ML, WILL NOTIFY
--- NOTE | 2019-12-25 16:30 | NUR ---
DR KIRAN MADE AWARE OF INCREASED RESIDUAL.
--- NOTE | 2019-12-25 16:40 | NUR ---
SUNG DAUGHTER AT BEDSIDE.
--- NOTE | 2019-12-25 17:07 | NUR ---
CONTINED TO MONITOR PT ON PT ON VENT WITH SETTINGS CHARTED BREATH SOUNDS PRESENT BILAT DIMINISHED WITN SOME RALES SXN PT WITH MIN TO MOD AT THICK OFF WHITE SECS AMBU BAG AT BEDSIDE VENT PLUGGED INTO RED OUTLET
[2019-12-25] MEDS: ATORVASTATIN 20 MG TAB PO SCH (17:29)
--- NOTE | 2019-12-25 17:48 | NUR ---
OGT RESIDUAL NOW 140ML, WILL RE START FEEDING AT 10ML/HR.
--- NOTE | 2019-12-25 18:54 | NUR ---
RECEIVED INTUBATED PT WITH A 7.5 ETT SECURED @25 TEETH/GUMS ON VENT. SETTINGS PC Pinsp 30, R 20, Tinsp 0.80, PEEP 8 AND FIO2 40%. PT SUCTIONED OBTAINED SMALL AMOUNT OF THICK YELLOW SECRETIONS, AIRWAY IS PATENT AND ETT IS SECURE. PT IS SEDATED AT THIS TIME NOT IN ANY DISTRESS. VENT IS PLUGGED INTO A RED OUTLET WITH ALARMS ON AND FUNCTIONING. AMBU BAG IS PRESENT NEAR BEDSIDE. WILL CONTINUE TO MONITOR.
--- NOTE | 2019-12-25 19:30 | NUR ---
BEDSIDE REPORT GIVEN TO BACK STRIP MACHINE OPERATOR NURSE, PT IN STABLE CONDITION.
--- NOTE | 2019-12-25 19:35 | NUR ---
[facility] AT [facility]IENTS BED[facility]. PATIENT IS SEDATED, ETT TO VENT. ACPC MODE, FI02 40%, RATE 20, PINSP 30, PEEP 8. LUNG SOUNDS VERY RHONCHI WITH INSPIRATION AND EXPIRATION, ALL THROUGHOUT. SATURATION AT 96%. S1S2, HEARD WITH SR ON MONITOR, HEART RATE 69 BPM. RIGHT UPPER ARM PICC LINE IN PLACE, ALL LUMENS ARE FLUSHED AND PATENT. INFUSING MORPHINE @ 8MG/HR-8ML/HR. VERSED INFUSING 8 MG/HR-8ML/HR. AND ROCURONIUM @ 84ML/HR. DRY WEIGHT USED AT 68 KG. AND RASS -3. PUPILS ARE EQUAL AND REACTIVE TO LIGHT BUT SLUGGISH, 2MM. RIGHT HAND PERIPHERAL IV 20G, FLUSHED WITHOUT SYMPTOMS, PATENT AND SALINE LOCKED. RIGHT FOREARM PERIPHERAL IV, 22G, FLUSHED AND PATENT, SALINE LOCKED. ARTERIAL LINE IN PLACE TO RIGHT GROIN, ZERO'd WITH A.M NURSES. BLOOD PRESSURE 119/59. ABDOMEN IS LARGE, WITH ACTIVE BOWEL SOUNDS IN ALL [address], AIR CHECK/AUSCULTATION CONFIRMED. RESIDUALS 50ML. GLUCERNA 1.2 AT RATE OF 10ML/HR. LEFT FOREARM, [address] TO TEST TRAIN OF FOUR. PATIENT STIMULATED UP TO 80 mA, NO SIGNS OF ELECTRICAL ACTIVITY. DENTON CATHETER IN PLACE, YELLOW URINE WITH SEDIMENT NOTED. SCD's IN PLACE, PRESSURE AREAS OFFSET WITH PILLOWS. PATIENTS SKIN IS SLIGHTLY COLD AND EDEMATOUS TO BUE, NONPITTING. TEMPERATURE 99.5 VIA TEMPORAL ARTERY SCAN. SIDERAILS UPx4, HOB 30 DEGREES, AMBUBAG AND SUCTION READY AT BEDSIDE, SAFETY ALARMS IN PLACE, WILL CONTINUE TO MONITOR 1:1. Addendum: 12/25/19 at 2024 by Taina Valle RN PATIENT IS ON DROPLET PRECAUTIONS, MICHELLE IN PLACE AT DOOR. Addendum: 12/25/19 at 2220 by Taina Valle RN ROCURONIUM 125 MG IN 250 ML NS-1.4 ML/MIN=0.68 MG/MIN
--- NOTE | 2019-12-25 19:55 | NUR ---
RT AT BEDSIDE WITH RN TO COLLECT ABG. CLOSED OFF ARTERIAL LINE TO PATIENT, CLEANED PORT, WASTED 10 ML, AND COLLECTED SAMPLE. REOPENED LINE AND FLUSHED. CLEANED PATIENT. PROVIDED PATIENT WITH VAP ORAL CARE. ALL NEEDS MET AT THIS TIME, FLACC 0
--- NOTE | 2019-12-25 21:28 | NUR ---
PATIENTS GASTRIC RESIDUALS ARE 240 ML/ RESIDENT AWARE. CONFIRMED TO HOLD FEEDING FOR NOW AND RECHECK GASTRIC RESIDUALS Q2H. WILL CARRY OUT.
--- NOTE | 2019-12-25 23:38 | NUR ---
RESIDUALS CHECKED-55ML. RESIDENT AWARE, CONFIRMED TO RESTART FEEDING AT 10 ML, CHECK RESIDUALS QHOUR.
[2019-12-26] VITALS (108 sets, daily range): BP systolic 97–215; BP diastolic 45–101
[2019-12-26] MEDS: NACL 0.9% IV SCH ×3 (01:17→07:50)
[2019-12-26] MEDS: ROCURONIUM IV SCH ×3 (01:17→07:50)
--- NOTE | 2019-12-26 01:23 | NUR ---
PT TOLERATING VENT SETTINGS WELL AT THIS TIME PT NOT IN ANY DISTRESS. PT SUCTIONED OBTAINED SMALL AMOUNT OF THICK YELLOW SECRETIONS, AIRWAY IS PATENT AND TRACH IS SECURE. WILL CONTINUE TO MONITOR.
--- NOTE | 2019-12-26 01:30 | NUR ---
GASTRIC RESIDUALS STILL BELOW 100ML, CONTINUED ON 10 ML/HR TUBE FEEDING. PATIENT RESTING WELL, VITAL SIGNS STABLE. FLACC 0. RT AT BEDSIDE FOR BREATHING TREATMENT AND CLEANING TRACH LINE. PROVIDED VAP ORAL CARE. SAFETY ALARMS IN PLACE, SCD's IN PLACE, SIDERAILS UP. WILL CONTINUE TO MONITOR.
--- NOTE | 2019-12-26 03:15 | NUR ---
GASTRIC RESIDUAL RIGHT AT 180 ML. CONTINUE HOURLY CHECKS. HUNG NEW CONTINUOUS DRIP BAGS. PATIENT IS NOT RESPONSIVE TO TOF STIMULATOR AT 80 mA. EYES ARE EQUAL AND REACTIVE BUT SLUGGISH. SKIN IS WARM TO TOUCH AT FOREHEAD BUT COLD AT BUE. TEMP 99.2. WILL CONTINUE TO MONITOR.
[2019-12-26] MEDS: VANCOMYCIN 1,000 MG in DEXTROSE 5% 250 ML IV SCH (03:37)
[2019-12-26] MEDS: MIDAZOLAM MDV 50 MG in NACL 0.9% 40 ML IV PRN ×5 (03:44→22:30)
[2019-12-26] MEDS: ACETYLCYSTEINE 10% (100 MG/ML) 100 MG/ML VIAL INH SCH ×6 (04:20→23:01)
[2019-12-26] MEDS: ALBUTEROL SULFATE/IPRATROPIU 3 ML SOL IH SCH ×6 (04:20→23:00)
[2019-12-26] MEDS: methylPREDNISolone SS 125 MG/2 ML VIAL IVP SCH ×3 (04:33→20:30)
[2019-12-26] MEDS: hydrALAZINE 20 MG/ML VIAL IVP PRN (04:34)
--- NOTE | 2019-12-26 04:47 | NUR ---
PATIENTS BLOOD PRESSURE SUDDENLY JUMPED UP TO 170's-190's AND RAMAINS HIGH FOR OVER 15 MINUTES, IVP HYDRALAZINE 10 MG PER ORDER. RESIDENT MD MADE AWARE, PATIENT IS TACHY WITH SOME PVC's AND BLOOD PRESSURE REACHED SBP OVER 200. CONTINUE CLOSE MONITORING, REASSESS IN 30 MINUTES AND UPDATE RESIDENT MD. HOLD FEEDING FOR NOW, RESIDUALS RIGHT ABOVE 200 ML.
--- NOTE | 2019-12-26 05:15 | NUR ---
PT REMAINS ON DOCUMENTED VENT SETTINGS. PT NOT IN ANY DISTRESS AT THIS TIME. ETT REMAINS SECURE WITH A PATENT AIRWAY. VENT ALARMS REMAIN ON AND FUNCTIONING.
--- NOTE | 2019-12-26 05:45 | NUR ---
RESPONDING VERY WELL TO IV PUSH HYDRALAZINE, BLOOD PRESSURE WITHIN NORMAL-127/58, HEART RATE 82, SR, NO SIGNS OF PVC's ON MONITOR. WILL CONTINUE TO MONITOR
[2019-12-26 05:49] LABS: BASOPHILS % (AUTO) 0.1 % (0.0-2.0); HEMATOCRIT 44.5 % (36-52); HEMOGLOBIN 14.6 g/dL (12.0-18.0); LYMPHOCYTES # (AUTO) 0.2 K/uL (2.0-11.5); LYMPHOCYTES % (AUTO) 1.4 % (20.5-51.1); MEAN CORPUSCULAR HEMOGLOBIN 31 pg (27-31); MEAN CORPUSCULAR HGB CONC 33 g/dL (33-37); MEAN CORPUSCULAR VOLUME 93.8 fL (80-94); MONOCYTES # (AUTO) 0.9 K/uL (0.8-1.0); MONOCYTES % (AUTO) 5.3 % (1.7-9.3); NEUTROPHILS # (AUTO) 15.7 K/uL (1.8-7.7); NEUTROPHILS % (AUTO) 93.2 % (42.2-75.2); PLATELET COUNT (AUTO) 139 K/uL (140-450); RED BLOOD CELL COUNT(AUTO) 4.74 MIL/uL (4.20-6.10); WHITE BLOOD COUNT (AUTO) 16.9 K/uL (4.8-10.8)
[2019-12-26 06:02] LABS: CREATININE 0.8 mg/dL (0.6-1.3); POTASSIUM 4.4 mmol/L (3.5-5.1)
[2019-12-26 06:03] LABS: CARBON DIOXIDE 31.4 mmol/L (21-32)
[2019-12-26 06:07] LABS: MAGNESIUM 2.3 mg/dL (1.8-2.4); PHOSPHORUS 3.2 mg/dL (2.5-4.9)
--- NOTE | 2019-12-26 06:21 | NUR ---
SPOKE WITH SUNNY AT [facility] FOR PATIENT UPDATE AND FOLLOWUP. ANSWERED ALL QUESTIONS. TRANSFER TO HIGHER LEVEL OF CARE TO [facility] STILL PENDING, WAITING FOR APPROVAL AND INSURANCE COVERAGE.
--- NOTE | 2019-12-26 06:30 | NUR ---
RESIDENT MD IN TO ASSESS PATIENT, CONTINUED ON ROCURONIUM AT 84ML/HR (1/4ML/MIN) WEIGHT USED 68KG, CONCENTRATION 0.5 MG/ML WITH 125 MG IN 250 ML SOLUTION. MORPHINE AT 8 MG/HR-8ML/HR, VERSED 8 MG/HR-8ML/HR. RASS -3. GTUBE FEEDINGS CONTINUE TO BE ON HOLD, NOT TOLERATING. ETT TO VENT ACPC MODE- FI02 40%, RATE 20, PEEP 8. SAFETY ALARMS IN PLACE, DENTON TO GRAVITY. OGT IN PLACE, CLAMPED. WILL ENDORSE CARE TO A.M NURSE
[2019-12-26] MEDS: BUDESONIDE 0.5 MG/2 ML NEBU INH SCH ×2 (06:44→19:03)
--- NOTE | 2019-12-26 07:16 | NUR ---
RECEIVED PT ON VENT WITH SETTINGS CHARTED BREATH SOUNDS PRESENT BILAT DIM COURSE SXN PT WITH MIN AMT THICK YELLOW SECS ETT SECURE AMBU BAG AT BEDSIDE VENT PLUGGED INTO RED OUTLET WILL CONTINUE TO MONITOR PT ON VENT
--- NOTE | 2019-12-26 07:30 | NUR ---
BEDSIDE REPORT RECEIVED FROM MALT ROASTER NURSE, PT SEDATED TO RASS -3, ETT TO VENT, ACPC, FIO2 40%, PIP 30, PEEP 8, RATE 20, LUNG SOUNDS CLEAR DIMINISHED ON LEFT, WZ ON R, VITALS STABLE ON MONITOR, NSR, A LINE TO R FEMORAL, PICC TO R UPPER ARM, SITES WNL, MORPHINE DRIP AT 8MG/HR, VERSED 8MG/HR, ROCURONIUM AT 0.01MG/KG/HR (84ML/HR). OGT ON HOLD AT THIS TIME, RESIDUAL 40ML. GLUCERNA RESTARTED AT 5ML/HR, ABD SOFT, NON DISTENDED, +BS, DENTON DRAINING YELLOW URINE WITH SEDIMENTS TO GRAVITY, ALL SAFETY MEASURES IN PLACE, POC REVIEWED, WILL CONTIUE TO PIETRO.
[2019-12-26] MEDS: BLOOD GLUCOSE MONITORING 1 DEV DEV FS SCH ×4 (07:58→21:20)
[2019-12-26] MEDS: INSULIN LISPRO SLIDING SCALE 100 UNITS/ML VIAL SUBQ PRN ×3 (07:58→21:22)
--- NOTE | 2019-12-26 08:05 | NUR ---
DR ARANGO CALLED FOR PT UPDATE, ORDER RECEIVED FOR ABG NOW AND DC ROCURONIUM.
[2019-12-26] MEDS: MONTELUKAST SODIUM 10 MG TAB PO SCH (08:16)
[2019-12-26] MEDS: LACTOBACILLUS RHAMNOSUS GG 1 EACH CAP PO SCH (08:16)
[2019-12-26] MEDS: OSELTAMIVIR PHOSPHATE 75 MG CAP PO SCH ×2 (08:16→20:31)
[2019-12-26] MEDS: PANTOPRAZOLE 40 MG INJ VIAL IVP SCH ×2 (08:16→20:30)
[2019-12-26] MEDS: LORATADINE 10 MG TAB PO SCH (08:17)
--- NOTE | 2019-12-26 09:00 | NUR ---
DR BOWENS AND MEDICAL TEAM AT BEDSIDE.
--- NOTE | 2019-12-26 09:10 | NUR ---
CALLED DAUGHTER FOR DR ARANGO TO DISCUSS POC, BRONCHOSCOPY CONSENT OBTAINED FROM DAUGHTER SUNG OVER THE PHONE BY 2 RNS.
[2019-12-26] MEDS ORDERED: ACETYLCYSTEINE 10% (100 MG/ML) 100 MG/ML VIAL INH PRN (09:20)
[2019-12-26] MEDS: MORPHINE SULFATE 100 MG in NACL 0.9% 90 ML IV PRN ×2 (09:21→22:00)
--- NOTE | 2019-12-26 09:40 | NUR ---
DR ARANGO AT BEDSIDE FOR BRONCHOSCOPY, RT FAHEEM [employer] AND MEDICAL STUDENT AT BEDSIDE.
[2019-12-26] MEDS: PROPOFOL 1000 MG/100 ML PREMIX 100 ML IV PRN (09:50)
--- NOTE | 2019-12-26 10:12 | NUR ---
BRONCH DONE ON PT BY DR ARANGO NO IL EFFECTS NOTED 25 CM AT GUM LINE BRONK DONE WILL CONTINUE TO MONITOR PT ON VENT
--- NOTE | 2019-12-26 11:05 | NUR ---
DAUGHTER SUNG AT BEDSIDE.
--- NOTE | 2019-12-26 12:04 | NUR ---
PT IN STABLE CONDITION, REMAINS ON MRPHINE, VERSED AND PROPOFOL DRIP, VITALS STABLE, VENT SETTING REMAINS THE SAME, ETT AT 25CM AT GUM, + REACTION WITH PERIPHERAL NERVE STIMULATOR TEST, TOF, AT 50mAMPS, DENTON DRAINING CLEAR YELLOW URINE WITH SEDIMENTS,.
[2019-12-26] MEDS: DEXT 5% / NACL 0.45% 1,000 ML IV SCH (13:05)
--- NOTE | 2019-12-26 15:20 | NUR ---
12/26/19 RD FOLLOW UP COMPLETED PLEASE REFER TO NUTRITION ASSESSMENT UNDER CARE ACTIVITY FOR ESTIMATED NUTRITIONAL NEEDS. 1. CONTINUE GLUCERNA 1.2 @ 55 ML/HR TOLERATED. RESTART FEEDING AT A LOW RATE AND GRADUALLY INCREASE TO GOAL. 2. IF PT IS STILL EXPERIENCING HIGH RESIDUALS CONSIDER SWITCHING TO VITAL 1.2 AF @ 45 ML/HR. THIS WILL PROVIDE 1080ML IN VOLUME, 1296 KCALS AND 81 G PROTEIN. THIS IS MEETING 86% OF PTS CALORIES AND 90% OF PTS PROTEIN. 3. CONSIDER PT FOR TPN IF NO IMPROVEMENT 4. RD TO FOLLOW-UP 2-3 DAYS, HIGH RISK KRYSTEN BOND RD
--- NOTE | 2019-12-26 15:25 | NUR ---
SPOKE TO PRIMARY RN TO CLARIFY WITH DOCTOR OF NOT TURNING/REPOSITION DUE TO PT. IS A HIGH RISK FOR SKIN BREAKS, ALSO EXPLAINED TO PRIMARY RN OFFLOADING.SHIFT WEIGHT SHOULD BE IN SHCEDULE. PRIMARY RN VERBALIZES UNDERSTANDING.
--- NOTE | 2019-12-26 15:55 | NUR ---
PT CONTINUES TO BE ON MORPHINE, VERSED, PROPOFOL, RASS -3, VENT SETTING REMAINS THE SAME, FLACC 0, VITALS STABLE ON MONITOR, + REACTION WITH NERVE STIMULATOR AT 40mAMP, DENTON DRAINIGN WELL, ALL SAFETY MEASURES IN PLACE, WILL CONTIUE TO MOTIOR.
[2019-12-26] MEDS: VANCOMYCIN 750 MG in DEXTROSE 5% 250 ML IV SCH (16:19)
--- NOTE | 2019-12-26 17:44 | NUR ---
continued to monitor pt on vent with settings as charted breath sounds present bilat sxn pt with thick yellow secs ett secure ambu bag at bedside vent plugged into re d outlet
[2019-12-26] MEDS: ATORVASTATIN 20 MG TAB PO SCH (17:54)
--- NOTE | 2019-12-26 19:25 | NUR ---
REPORT GIVEN TO SUPERVISOR FELLING BUCKING NURSE, PT IN STABLE CONDITION.
--- NOTE | 2019-12-26 19:30 | NUR ---
RECEIVED PT REPORT FROM DAYSWVFT NURSE FOR CONTINUITY OF CARE. PT RESTING IN BED. RASS -3. DRY WEIGHT 68KG. PERRL. ETT TO VENT. ETT @ 25CM, LIP LINE. VENT AC/PC MODE: PIP 30, PEEP 8, RR 20, 40% FI02. WHEEZING LUNG SOUNDS THROUGHOUT. OGT PATENT, + PLACEMENT VERIFIED VIA AIR BOLUS. ZERO RESIDUAL. FEEDING HELD PER DAY SHIFT D/T INCREASED RESIDUAL. MD WILL RE-EVAL IN AM. RT FEM A-LINE PATENT, FUNCTIONING PROPERLY. BOWEL SOUNDS ACTIVE X4. NO ABDOMINAL DISTENTION OBSERVED. INDWELLING URINARY CATHETER IN PLACE, DRAINING CLEAR, YELLOW, URINE TO GRAVITY. SOFT WRIST RESTRAINTS IN PLACE D/T PT ATTEMPTING TO REMOVE ETT. NO INJURY, CIRCULATION WNL. PICC NOTED TO AICHA INFUSING 1/2 D5 @ 50ML/HR, MORPHINE 8MG/HR, VERSED 8MG/HR, PROPOFOL 5MCG/KG/MIN. SAFETY PRECAUTIONS REMAIN IN PLACE. BED LOW AND LOCKED. WILL CONTINUE TO MONITOR.
--- NOTE | 2019-12-26 22:00 | NUR ---
VAP ORAL CARE PROVIDED. CRIS CARE PROVIDED. REPOSITIONED. PT RESTING COMFORTABLY IN BED. WILL CONTINUE TO MONITOR.
[2019-12-27] VITALS (106 sets, daily range): BP systolic 91–184; BP diastolic 47–91
--- NOTE | 2019-12-27 | NUR ---
SUCTIONED ETT WITH RESPIRATORY. THICK, YELLOW SECRETIONS NOTED. SPO2 97%. SAFETY PRECAUTIONS IN PLACE. WILL CONTINUE TO MONITOR.
[2019-12-27] MEDS: VANCOMYCIN 750 MG in DEXTROSE 5% 250 ML IV SCH ×4 (01:32→23:34)
--- NOTE | 2019-12-27 02:00 | NUR ---
VAP ORAL CARE PROVIDED. SUCTIONED MODERATE AMOUNT OF CREAMY, YELLOW SECRETIONS. RELEASED SOFT-WRIST RESTRAINTS X 15 MIN. SAFETY PRECAUTIONS REMAIN IN PLACE. BED LOW AND LOCKED. WILL CONTINUE TO MONITOR.
[2019-12-27] MEDS: ALBUTEROL SULFATE/IPRATROPIU 3 ML SOL IH SCH ×6 (03:09→23:06)
--- NOTE | 2019-12-27 04:00 | NUR ---
PT RESTING IN BED. SUCTIONED TRACH WITH SCANT THICK, WHITE, SECRETIONS NOTED. REPOSITIONED WITH PRESSURE AREAS OFFLOADED. FLACC 0. SAFETY PRECAUTIONS IN PLACE WITH BED LOW AND LOCKED. SIDE RAILS UP X2. WILL CONTINUE TO MONITOR.
[2019-12-27 04:38] LABS: BASOPHILS % (AUTO) 0.2 % (0.0-2.0); HEMATOCRIT 40.5 % (36-52); HEMOGLOBIN 13.2 g/dL (12.0-18.0); LYMPHOCYTES # (AUTO) 0.2 K/uL (2.0-11.5); LYMPHOCYTES % (AUTO) 1.2 % (20.5-51.1); MEAN CORPUSCULAR HEMOGLOBIN 31 pg (27-31); MEAN CORPUSCULAR HGB CONC 33 g/dL (33-37); MEAN CORPUSCULAR VOLUME 93.8 fL (80-94); MONOCYTES % (AUTO) 5.6 % (1.7-9.3); PLATELET COUNT (AUTO) 133 K/uL (140-450); RED BLOOD CELL COUNT(AUTO) 4.31 MIL/uL (4.20-6.10); WHITE BLOOD COUNT (AUTO) 18.3 K/uL (4.8-10.8)
[2019-12-27 05:15] LABS: CREATININE 0.7 mg/dL (0.6-1.3)
[2019-12-27 05:19] LABS: MAGNESIUM 2.3 mg/dL (1.8-2.4); PHOSPHORUS 2.8 mg/dL (2.5-4.9)
[2019-12-27 05:23] LABS: ANION GAP 7.5 (8-16); CARBON DIOXIDE 31.4 mmol/L (21-32); POTASSIUM 3.9 mmol/L (3.5-5.1)
[2019-12-27] MEDS: MIDAZOLAM MDV 50 MG in NACL 0.9% 40 ML IV PRN ×2 (05:58→12:14)
[2019-12-27] MEDS: methylPREDNISolone SS 125 MG/2 ML VIAL IVP SCH ×3 (06:00→20:14)
[2019-12-27] MEDS: BLOOD GLUCOSE MONITORING 1 DEV DEV FS SCH ×4 (07:02→20:14)
--- NOTE | 2019-12-27 07:03 | NUR ---
rec'd pt on carescape vent settings pc30 rr 20 peep 8 fio2 40% alarms on and audible and ambu bag at side of vent and vent is plugged into red outlet, i\l txs given with duoneb 3ml and pulmicort 0.5 mg with no adverse reaction post tx b\s are wheezing bilaterally, sxn pt moderated amt of yellow secretions, pt is orally intubated with 7.5 et tube secured at 23 cm and pt is resting Addendum: 12/27/19 at 0935 by Alva Rock RT ET TUBE IS SECURED AT 28 CM
[2019-12-27] MEDS: BUDESONIDE 0.5 MG/2 ML NEBU INH SCH ×2 (07:11→20:27)
--- NOTE | 2019-12-27 07:30 | NUR ---
ENDORSED PT TO DAYSHIFT FOR CONTINUITY OF CARE. VSS.
--- NOTE | 2019-12-27 07:30 | NUR ---
RECEIVED PT FROM PM SHIFT RN. PT SEDATED.BEDSIDE MONITOR SHOWS SB 54. ETT TO VENT WITH SETTING FIO2=40%, A/C PC, PIP 30, PEEP 8. BEDSIDE VENT SHOWS PEAK PRESSURE 40 AND TIDAL VOLUME 476. OG TUBE IN PLACE BUT DID NOT FEED PT( PER PM SHIFT RN, ASK MD IS IT OK TO FEED PT.) PT HAS PICC LINE TO RIGHT UPPER ARM RUNNING MORPHINE AT 8 MG/HR, VERSED AT 8 MG/HR AND PROPOFOL 5 MCG/KG/MIN =2.04 CC/HR BASED ON DRY WEIGHT 68.7KG. RASS -3. D5 1/2 NS AT 50 CC/HR . PT ALSO HAS TWO IV TO RIGHT FA # 22 AND RIGHT HAND # 20. THERE IS AN ARTERY LINE TO RIGHT FEMORAL. PT HAS SOFT RESTRAIN TO BOTH WRIST, CIRCULATION WELL. PT HAS F/C IN PLACE WITH YELLOW URINE NOTED. SCD IN PLACE, NO FEVER, HOB ELEVATED 30 DEGREES WITH LOW BED POSITION, WILL CONTINUE TO MONITOR. PER PM SHIFT NURSE DO NOT TURN PT UNTIL CLEARED BY DR. ARANGO .
--- NOTE | 2019-12-27 08:05 | NUR ---
DOTTY FROM [facility] CALLED TO CHECK PATIENT CONDITION. AND SAID WILL HAVE THE LIQUOR GRINDING MILL OPERATOR TAKE CARE OF IT .
[2019-12-27] MEDS: PROPOFOL 1000 MG/100 ML PREMIX 100 ML IV PRN (08:29)
[2019-12-27] MEDS: LACTOBACILLUS RHAMNOSUS GG 1 EACH CAP PO SCH (08:30)
[2019-12-27] MEDS: MONTELUKAST SODIUM 10 MG TAB PO SCH (08:30)
--- NOTE | 2019-12-27 08:30 | NUR ---
CALLED RESIDENT OFFICE, NOTIFIED PT RESIDUAL CHECKED ZERO, PER DR. MANJARREZ, RESTART TUBE FEEDING. WILL CARRY OUT.
[2019-12-27] MEDS: PANTOPRAZOLE 40 MG INJ VIAL IVP SCH ×2 (08:31→20:14)
[2019-12-27] MEDS: LORATADINE 10 MG TAB PO SCH (08:31)
--- NOTE | 2019-12-27 09:00 | NUR ---
DUE MEDS GIVEN, NEW FORMULA AND TUBE FEEDING BAG STARTED AT 10 CC/HR.
[2019-12-27] MEDS: DEXT 5% / NACL 0.45% 1,000 ML IV SCH (09:05)
--- NOTE | 2019-12-27 11:40 | NUR ---
CALLED DR. BLACKWELL NOTIFIED PT BS 159, PT ON TUBE FEEDING 10 CC/HR, NEXT BS WILL BE 1630, DR. BLACKWELL SAID HOLD INSULIN FOR NOW.
--- NOTE | 2019-12-27 12:14 | NUR ---
DR. NAGEL CAME IN TO CHECK PT. PER DR. NAGEL, TRY TO OFF VERSED DRIP DUE TO HE DOES NOT WANT PT HAS WITHDRAWAL SYMPTOMS. INCREASE PROPOFOL NEEDED. DECREASED VERSED FROM 8 MG/HR TO 4 MG/HR PER MD ORDER. DR. TOMPKINS ALSO DISCUSSED PROGRESS WITH PT'S DAUGHTER RADHA. TUBE FEEDING RESIDUAL CHECKED ZERO.
[2019-12-27] MEDS: MORPHINE SULFATE 100 MG in NACL 0.9% 90 ML IV PRN (12:15)
--- NOTE | 2019-12-27 14:15 | NUR ---
TUBE FEEDING RESIDUAL ZERO. PT WAKING UP WHILE I WAS DOING ORAL CARE. INCREASED PROPOFOL ,TURNED OFF LIGHTS AND DECREASED STIMULI. Addendum: 12/27/19 at 1432 by Juan De La Rosa RN PT WAS TRYING TO PULL TUBING WHILE PT WOKE UP.
[2019-12-27] MEDS: DOCUSATE SODIUM 100 MG GELCAP PO PRN (16:25)
[2019-12-27] MEDS: ATORVASTATIN 20 MG TAB PO SCH (16:25)
[2019-12-27] MEDS: INSULIN LISPRO SLIDING SCALE 100 UNITS/ML VIAL SUBQ PRN (16:58)
--- NOTE | 2019-12-27 16:59 | NUR ---
RESIDUAL CHECKED 45 CC PLUS 30 WATER FOR MEDS, HOLD TUBE FEEDING, WILL RECHECK.
--- NOTE | 2019-12-27 18:25 | NUR ---
RECHECKED RESIDUAL 10CC , INCREASED TUBE FEEDING TO 20 CC/HR.
[2019-12-27] MEDS ORDERED: NACL 0.9% 1,000 ML IV ONE (19:10)
--- NOTE | 2019-12-27 19:30 | NUR ---
RECEIVED PT REPORT FROM [facility] NURSE. PT RESTING IN BED. RASS -3. DRY WEIGHT 68KG. PERRL. ETT TO VENT. ETT @ 25CM, LIP LINE. VENT AC/PC MODE: PIP 30, PEEP 8, RR 20, 40% FI02. COARSE LUNG SOUNDS THROUGHOUT. OGT PATENT, + PLACEMENT VERIFIED VIA AIR BOLUS. ZERO RESIDUAL. GLUCERNA 1.2 RUNNING @ 20CC/HR. RT FEM A-LINE PATENT, FUNCTIONING PROPERLY AND ZEROED OUT AT THIS TIME. BOWEL SOUNDS ACTIVE X4. NO ABDOMINAL DISTENTION OBSERVED. INDWELLING URINARY CATHETER IN PLACE, DRAINING CLEAR, YELLOW, URINE TO GRAVITY. SOFT WRIST RESTRAINTS IN PLACE D/T PT ATTEMPTING TO REMOVE ETT. NO INJURY, CIRCULATION CHECK WNL. PICC NOTED TO AICHA INFUSING 1/2 D5 @ 50ML/HR, MORPHINE 8MG/HR, VERSED 2MG/HR, PROPOFOL 30MCG/KG/MIN. SAFETY PRECAUTIONS REMAIN IN PLACE. BED LOW AND LOCKED. WILL CONTINUE TO MONITOR FOR CHANGES.
--- NOTE | 2019-12-27 20:30 | NUR ---
VERSED STOPPED AT THIS TIME.
--- NOTE | 2019-12-27 20:30 | NUR ---
Received pt stable on vent support at documented settings, suctioned large amounts of thick yellow green secretions, hhn tx given, tolerated well, no resp distress or SOB noted at this time, found 7.5 ETT secured at 26 cm at the lip, alarms set and audible, ambu bag at bedside, vent plugged into red outlet and wiped down, cont pulse ox on, will cont to monitor.
--- NOTE | 2019-12-27 22:40 | NUR ---
DR VIGIL AT BEDSIDE AT THIS TIME. UPDATED ON PT STATUS. NO NEW ORDERS AT THIS TIME.
[2019-12-28] VITALS (103 sets, daily range): BP systolic 78–241; BP diastolic 43–114
--- NOTE | 2019-12-28 | NUR ---
VAP ORAL CARE PROVIDED. FLACC 0. REMAINS ON PROPOFOL DRIP. HOB @ 30 DEGREES WITH FEEDING RUNNING @ 20CC/HR. SUCTIONED TRACH WITH THICK CREAMY SECRETIONS. SAFETY PRECAUTIONS REMAIN IN PLACE. BED LOW AND LOCKED. WILL CONTINUE TO MONITOR.
--- NOTE | 2019-12-28 | NUR ---
GEORGIANA Rivas1. INCREASED PROPOFOL TO 35MCG/KG/MIN Addendum: 12/28/19 at 0749 by Radha Martinez RN BP, HR, INCREASED WHILE PT AWAKE.
[2019-12-28] MEDS: MORPHINE SULFATE 100 MG in NACL 0.9% 90 ML IV PRN ×3 (01:17→18:22)
--- NOTE | 2019-12-28 01:30 | NUR ---
RASS -1. INCREASED PROPOFOL TO 40 MCG/KG/MIN
--- NOTE | 2019-12-28 02:00 | NUR ---
BED BATH GIVEN. VSS. NO ACUTE DISTRESS OBSERVED. FLACC 0. REMAINS ON SOFT WRIST RESTRAINTS. CIRCULATION WNL, NO INJURIES NOTED.
--- NOTE | 2019-12-28 02:30 | NUR ---
RASS -1. INCREASED PROPOFOL TO 43 MCG/KG/MIN @ THIS TIME. Addendum: 12/28/19 at 0625 by Radha Martinez RN RASS -1. INCREASED PROPOFOL TO 45 MCG/KG/MIN @ THIS TIME.
[2019-12-28] MEDS: ALBUTEROL SULFATE/IPRATROPIU 3 ML SOL IH SCH ×6 (03:09→23:55)
--- NOTE | 2019-12-28 03:09 | NUR ---
RESPIRATORY AT BEDSIDE AT THIS TIME.
[2019-12-28] MEDS: hydrALAZINE 20 MG/ML VIAL IVP PRN ×2 (03:28→11:37)
[2019-12-28] MEDS: MORPHINE SULFATE 2 MG/ML SYR IVP PRN (03:53)
--- NOTE | 2019-12-28 04:00 | NUR ---
PRN HYDRALAZINE ADMINISTERED ORDERED FOR BP OF 204/93. BED LOW AND LOCKED. SIDE RAILS UP. SAFETY PRECAUTIONS REMAIN IN PLACE. WILL CONTINUE TO MONITOR.
[2019-12-28] MEDS: methylPREDNISolone SS 125 MG/2 ML VIAL IVP SCH ×3 (04:38→20:25)
[2019-12-28] MEDS: DEXT 5% / NACL 0.45% 1,000 ML IV SCH (05:05)
[2019-12-28 05:06] LABS: HEMATOCRIT 42.8 % (36-52); HEMOGLOBIN 13.8 g/dL (12.0-18.0); MEAN CORPUSCULAR HEMOGLOBIN 30 pg (27-31); MEAN CORPUSCULAR HGB CONC 32 g/dL (33-37); MEAN CORPUSCULAR VOLUME 93.1 fL (80-94); PLATELET COUNT (AUTO) 148 K/uL (140-450); RED CELL DISTRIBUTION WIDTH 13.8 % (11.6-13.7); WHITE BLOOD COUNT (AUTO) 24.4 K/uL (4.8-10.8)
[2019-12-28 05:24] LABS: ANION GAP 7.5 (8-16); CARBON DIOXIDE 30.4 mmol/L (21-32); CREATININE 0.7 mg/dL (0.6-1.3); POTASSIUM 3.9 mmol/L (3.5-5.1)
[2019-12-28 05:29] LABS: MAGNESIUM 2.4 mg/dL (1.8-2.4); PHOSPHORUS 3.1 mg/dL (2.5-4.9)
[2019-12-28] MEDS ORDERED: LORazepam 2 MG/ML VIAL IVP SCH ×3 (05:30→16:00)
[2019-12-28] MEDS: VANCOMYCIN 750 MG in DEXTROSE 5% 250 ML IV SCH ×3 (06:06→22:24)
[2019-12-28 06:08] LABS: BASOPHILS % (MANUAL) 0 % (0-2); EOSINOPHILS % (MANUAL) 0 % (0-4); LYMPHOCYTES % (MANUAL) 1 % (20-46); MONOCYTES % (MANUAL) 6 % (5-12)
[2019-12-28] MEDS: BUDESONIDE 0.5 MG/2 ML NEBU INH SCH ×2 (07:15→19:57)
--- NOTE | 2019-12-28 07:25 | NUR ---
ENDORSED PT TO DAYSHIFT RN FOR CONTINUITY OF CARE. VSS.
[2019-12-28] MEDS ORDERED: PROPOFOL 200 MG/20 ML VIAL IV ONE (07:27)
[2019-12-28] MEDS: PROPOFOL 1000 MG/100 ML PREMIX 100 ML IV PRN ×3 (07:28→18:24)
[2019-12-28] MEDS: BLOOD GLUCOSE MONITORING 1 DEV DEV FS SCH ×4 (07:30→20:24)
--- NOTE | 2019-12-28 07:30 | NUR ---
RECEIVED PT FROM PM SHIFT RN. PT SEDATED.BEDSIDE MONITOR SHOWS ST 110S. ETT TO VENT WITH SETTING FIO2=40%, A/C PC, PIP 30, PEEP 8. AC= 16.BEDSIDE VENT SHOWS PEAK PRESSURE 40 AND TIDAL VOLUME 485. OG TUBE IN PLACE RUNNING GLUCERNA AT 20 CC/HR. PT HAS PICC LINE TO RIGHT UPPER ARM RUNNING MORPHINE AT 14 MG/HR AND PROPOFOL 45 MCG/KG/MIN BASED ON DRY WEIGHT 68.7KG. RASS -2. INCREASED PROPOFOL RATE TO 50 MCG/KG/MIN. D5 1/2 NS AT 50 CC/HR . PT ALSO HAS TWO IV TO RIGHT FA # 22 AND RIGHT HAND # 20. THERE IS AN ARTERY LINE TO RIGHT FEMORAL. PT HAS SOFT RESTRAIN TO BOTH WRIST, CIRCULATION WELL. PT HAS F/C IN PLACE WITH YELLOW URINE NOTED. SCD IN PLACE, NO FEVER, HOB ELEVATED 30 DEGREES WITH LOW BED POSITION, WILL CONTINUE TO MONITOR. PER PM SHIFT NURSE PT WAS VERY AGITATED DURING DAY CARE PROVIDER. PT'S HR WAS 110S-120S AND SBP WAS ABOVE 180 AND O2 SATS DECREASED TO 88% WHEN PT WAS AGITATED. Addendum: 12/28/19 at 1436 by Juan De La Rosa RN RASS WAS -1 INSTEAD OF -2.
[2019-12-28] MEDS: INSULIN LISPRO SLIDING SCALE 100 UNITS/ML VIAL SUBQ PRN ×4 (07:34→20:37)
--- NOTE | 2019-12-28 08:00 | NUR ---
TUBE FEEDING RESIDUAL CHECKED 40 CC. ORAL CARE GIVEN. IV TO RIGHT FA # 22 AND RIGHT HAND # 20 REMOVED.
[2019-12-28] MEDS: PANTOPRAZOLE 40 MG INJ VIAL IVP SCH ×2 (09:20→20:24)
[2019-12-28] MEDS: MONTELUKAST SODIUM 10 MG TAB PO SCH (09:21)
[2019-12-28] MEDS: LORATADINE 10 MG TAB PO SCH (09:21)
[2019-12-28] MEDS: LACTOBACILLUS RHAMNOSUS GG 1 EACH CAP PO SCH (09:21)
[2019-12-28] MEDS: ACETAMINOPHEN 325 MG TAB PO PRN (10:09)
--- NOTE | 2019-12-28 11:05 | NUR ---
pt warm to touch when assessed pt. checked temp 100.4 at 1009, after that check temp decreased to 98.9 F
--- NOTE | 2019-12-28 11:13 | NUR ---
NOTIFIED DR. DOW PT PROPOFOL DRIP RATE 50 MCG/KG/MIN AT THIS TIME AND MORPHINE AT 14 MG/HR. PT IS VERY AGITATED. BEDSIDE MONITOR SHOWS ST 117. BP 179/90. PT WAS TRYING TO OFF WRIST RESTRAIN.
[2019-12-28] MEDS ORDERED: LORazepam 2 MG/ML VIAL IM/IVP SCH (11:17)
--- NOTE | 2019-12-28 11:55 | NUR ---
PT SLEEPING HR 84, BP 132/72 AFTER AFTER GIVING ATIVAN AND HYDRALAZINE 10 MG.
[2019-12-28] MEDS ORDERED: LORazepam 2 MG/ML VIAL IVP PRN (15:45)
--- NOTE | 2019-12-28 16:00 | NUR ---
DR. 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 NAGEL, TRY TO WEAN PT OFF MORPHINE , OK TO INCREASE FREQUENCY OF ATIVAN. OK TO MOVE PT LITTLE POSSIBLE, IF PT UNABLE TO TOLERATE , DO NOT MOVE. GENTLY REPOSITIONED PT WITH CHARGE NURSE, PT TOLERATED FINE. UNABLE TO ASSESS SKIN IN THE BACK DUE TO MINIMUM MOVE REQUIREMENT.
[2019-12-28] MEDS: ATORVASTATIN 20 MG TAB PO SCH (16:37)
--- NOTE | 2019-12-28 17:00 | NUR ---
TUBE FEEDING RESIDUAL CHECKED NONE. INCREASED RATE TO 30 CC/HR.
--- NOTE | 2019-12-28 17:30 | NUR ---
NOTIFIED DR. DOW PT IS SENSITIVE TO ATIVAN , PT BP DROPS EACH TIME AFTER ATIVAN GIVEN, SUGGESTED TO DECREASE DOSE .
--- NOTE | 2019-12-28 19:15 | NUR ---
endorsed pt to pm shift RN.
--- NOTE | 2019-12-28 19:30 | NUR ---
RECEIVED PT REPORT FROM [facility] NURSE. PT RESTING IN BED. RASS -3. DRY WEIGHT 68KG. PERRL. ETT TO VENT. ETT @ 25CM, LIP LINE. VENT AC/PC MODE: PIP 30, PEEP 8, RR 20, 40% FI02. COARSE LUNG SOUNDS THROUGHOUT. OGT PATENT, + PLACEMENT VERIFIED VIA AIR BOLUS. ZERO RESIDUAL. GLUCERNA 1.2 RUNNING @ 30 CC/HR. RT FEM A-LINE IN PLACE, FUNCTIONING PROPERLY AND ZEROED OUT AT THIS TIME. BOWEL SOUNDS ACTIVE X4. NO ABDOMINAL DISTENTION OBSERVED. INDWELLING URINARY CATHETER IN PLACE, DRAINING CLEAR, YELLOW, URINE TO GRAVITY. SOFT WRIST RESTRAINTS IN PLACE D/T PT ATTEMPTING TO REMOVE ETT. NO INJURY, CIRCULATION CHECK WNL. PICC NOTED TO AICHA INFUSING 1/2 D5 @ 50ML/HR, MORPHINE 11MG/HR, PROPOFOL 20 MCG/KG/MIN. SAFETY PRECAUTIONS REMAIN IN PLACE. BED LOW AND LOCKED. WILL CONTINUE TO MONITOR FOR CHANGES.
--- NOTE | 2019-12-28 19:58 | NUR ---
RECEIVED PT INTUBATED WITH ETT SIZE 7.5 @ 26CM LIP LEVEL AND SECURED WITH ANCHOR-FAST. PT ON VENT SETTINGS ORDERED; VENT PLUGGED IN RED OUTLET; BVM AT BEDSIDE; HOB > 30; AND ALARMS SET AND AUDIBLE. SX COPIOUS AMOUNT OF YELLOW THICK SECRETIONS FROM THE ETT. NO RESPIRATORY DISTRESS NOTED AT THIS TIME; SP02 OF 94% AND A COARSE BREATH SOUNDS. HHN TX GIVEN ORDERED WITH NO ADVERSE REACTION. WILL CONTINUE TO MONITOR PT.
--- NOTE | 2019-12-28 22:00 | NUR ---
VAP ORAL CARE PROVIDED. VSS. DENIES PAIN UPON QUESTIONING. SAFETY PRECAUTIONS REMAIN IN PLACE WITH BED LOW AND LOCKED. SIDE RAILS UP X2. HOB @ 35 DEGREES. WILL CONTINUE TO MONITOR.
[2019-12-29] VITALS (105 sets, daily range): BP systolic 90–205; BP diastolic 45–138
[2019-12-29] MEDS: LORazepam 2 MG/ML VIAL IVP PRN ×5 (00:12→21:59)
--- NOTE | 2019-12-29 01:00 | NUR ---
INCREASED AGITATION NOTED AT THIS TIME. PT ATTEMPTING TO SIT UP IN BED, INCREASED BP AND HR. PRN ATIVAN ADMINISTERED WITHOUT INCIDENT. WILL FOLLOW UP.
[2019-12-29] MEDS: DEXT 5% / NACL 0.45% 1,000 ML IV SCH (01:05)
--- NOTE | 2019-12-29 01:45 | NUR ---
PT RESTING COMFORTABLY IN BED. NO S/S OF AGITATION AT THIS TIME. NO ADR NOTED. VSS. SAFETY PRECAUTIONS REMAIN IN PLACE. BED LOW AND LOCKED WITH SIDE RAILS UP X2. WILL CONTINUE TO MONITOR.
[2019-12-29] MEDS: ALBUTEROL SULFATE/IPRATROPIU 3 ML SOL IH SCH ×6 (02:49→22:22)
--- NOTE | 2019-12-29 02:50 | NUR ---
respiratory at bedside. decreased fi02 to 40%
[2019-12-29] MEDS: MORPHINE SULFATE 100 MG in NACL 0.9% 90 ML IV PRN ×2 (03:48→16:04)
--- NOTE | 2019-12-29 05:26 | NUR ---
XRAY AT BEDSIDE. CXR PERFORMED WITHOUT INCIDENT.
--- NOTE | 2019-12-29 05:45 | NUR ---
INCREASED AGITATION NOTED. PRN ATIVAN ADMINISTERED ORDERED. SAFETY PRECAUTIONS REMAIN IN PLACE. WILL FOLLOW UP.
[2019-12-29 05:56] LABS: BASOPHILS % (AUTO) 0.1 % (0.0-2.0); HEMATOCRIT 39.1 % (36-52); HEMOGLOBIN 12.8 g/dL (12.0-18.0); LYMPHOCYTES # (AUTO) 0.2 K/uL (2.0-11.5); LYMPHOCYTES % (AUTO) 1.2 % (20.5-51.1); MEAN CORPUSCULAR HEMOGLOBIN 30 pg (27-31); MEAN CORPUSCULAR HGB CONC 33 g/dL (33-37); MEAN CORPUSCULAR VOLUME 92.4 fL (80-94); MONOCYTES # (AUTO) 1.1 K/uL (0.8-1.0); MONOCYTES % (AUTO) 5.6 % (1.7-9.3); NEUTROPHILS # (AUTO) 18.3 K/uL (1.8-7.7); NEUTROPHILS % (AUTO) 93.1 % (42.2-75.2); PLATELET COUNT (AUTO) 143 K/uL (140-450); RED BLOOD CELL COUNT(AUTO) 4.23 MIL/uL (4.20-6.10); RED CELL DISTRIBUTION WIDTH 13.5 % (11.6-13.7); WHITE BLOOD COUNT (AUTO) 19.7 K/uL (4.8-10.8)
[2019-12-29] MEDS: VANCOMYCIN 750 MG in DEXTROSE 5% 250 ML IV SCH ×2 (06:02→14:58)
[2019-12-29 06:07] LABS: ANION GAP 8.9 (8-16); CARBON DIOXIDE 29.9 mmol/L (21-32); CREATININE 0.7 mg/dL (0.6-1.3); POTASSIUM 3.8 mmol/L (3.5-5.1)
[2019-12-29 06:11] LABS: MAGNESIUM 2.2 mg/dL (1.8-2.4); PHOSPHORUS 2.9 mg/dL (2.5-4.9)
[2019-12-29] MEDS: BUDESONIDE 0.5 MG/2 ML NEBU INH SCH ×2 (06:26→19:42)
--- NOTE | 2019-12-29 06:26 | NUR ---
rec'd pt on carescape vent setting pc 30 rr 16 itime 0.90 peep 8 fio2 45 % alarms on and audible and ambu bag at side of vent and vent is plugged into red outlet, i\s txs given with duoneb 3ml and pulmicort 0.5mg with no adverse reaction post tx b\s are diminished bilaterally, sxn pt moderate amt of thick cream color secretions, pt is orally intubated with 7.5 et tube secured with anchor fast at 26 cm pt is resting
--- NOTE | 2019-12-29 06:30 | NUR ---
NO ADR R/T PRN ATIVAN ADMINISTRATION NOTED. PT CALM, RESTING IN BED. VSS. FLACC 0.
[2019-12-29] MEDS: BLOOD GLUCOSE MONITORING 1 DEV DEV FS SCH ×4 (06:41→20:29)
[2019-12-29] MEDS: INSULIN LISPRO SLIDING SCALE 100 UNITS/ML VIAL SUBQ PRN ×4 (06:48→20:40)
[2019-12-29] MEDS ORDERED: PROBIOTIC SCREEN 1 EA MISC MC PRN (07:00)
--- NOTE | 2019-12-29 07:15 | NUR ---
RECEIVED BEDSIDE REPORT FROM HOSPICE TEAM LEAD NURSE, PT IS SEDATED, RASS -3, PERRL, VSS, FLACC 0, ETT TO VENT WITH AC/PC MODE, FIO2 45, R 16, PEEP 8, NO S/S OF DISTRESS, DIMINISHED LUNG SOUNDS NICHOLE. SR ON ARMATURE WINDER, CAP REFILL <2 SEC, NON PITTING EDEMA ON NICHOLE. HANDS NOTED, SOFT LARGE ROUND ABDOMEN WITH ACTIVE BOWEL SOUNDS, OGT IN PLACE FEEDING WITH GLUCERNA 1.2 AT 40 ML/HR, NO RESIDUALS AT THIS TIME, INCREASED FEEDING TO 50ML/HR, DENTON CATHETER IN PLACE WITH CLEAR SEDIMENT URINE VIA GRAVITY, SKIN IS WARM AND DRY TO TOUCH, INTACT, PICC LINE TO AICHA, PATENT, RUNNING D5 1/2 NS AT 50 ML/HR, MORPHINE DRIP AT 11MG/HR, AND PROPOFOL AT 20 MG/KG/MIN, DRY WEIGHT USED ON PUMP IS 68 KG, SATURNINO TO RIGHT FEMORAL, PATENT AND ZEROED. GENERALIZED WEAKNESS TO ALL EXTREMITIES, SOFT RESTRAIN TO NICHOLE. WRIST, NO INJURY NOTED, HOB ELEVATED TO 30 DEGREES, SAFETY MEASURES IN PLACE, WILL CONTINUE TO MONITOR.
--- NOTE | 2019-12-29 08:50 | NUR ---
SCHEDULED MEDICATION GIVEN, PATIENT TOLERATED WELL. Addendum: 12/29/19 at 0949 by Huma Dela Cruz RN PATIENT HAD TEMP 100.7, TYLENOL GIVEN, PATIENT AGITATED, ATIVAN GIVEN WELL, WILL CONTINUE TO MONITOR.
[2019-12-29] MEDS: PANTOPRAZOLE 40 MG INJ VIAL IVP SCH ×2 (09:12→20:26)
[2019-12-29] MEDS: LACTOBACILLUS RHAMNOSUS GG 1 EACH CAP PO SCH (09:13)
[2019-12-29] MEDS: ACETAMINOPHEN 325 MG TAB PO PRN (09:13)
[2019-12-29] MEDS: MONTELUKAST SODIUM 10 MG TAB PO SCH (09:13)
[2019-12-29] MEDS: methylPREDNISolone SS 125 MG/2 ML VIAL IVP SCH ×2 (09:13→20:28)
[2019-12-29] MEDS: LORATADINE 10 MG TAB PO SCH (09:13)
--- NOTE | 2019-12-29 10:00 | NUR ---
FAMILY AT BEDSIDE, NO CHANGE OF CONDITION AT THIS TIME, VSS, FLACC 0.
--- NOTE | 2019-12-29 12:00 | NUR ---
PATIENT IS RESTING IN BED, NO CHANGE OF CONDITION AT THIS TIME, VSS, FLACC 0, ORAL CARE PROVIDED, POSITION CHANGED FOR OFF LOAD PRESSURE.
--- NOTE | 2019-12-29 12:15 | NUR ---
FOUND DTI TO SACRAL AREA, PICTURES TAKEN, DR. ADAM AND PATIENT'S DAUGHTER MADE AWARE, WILL FOLLOW UP WITH TREATMENT AND WOUND CARE EVAL.
--- NOTE | 2019-12-29 12:40 | NUR ---
DR. CRENSHAW CAME IN TO SEE PATIENT AT BEDSIDE, UPDATED PATIENT'S CONDITION, WILL FOLLOW UP WITH NEW ORDERS.
[2019-12-29] MEDS ORDERED: HYDRAGUARD CREAM TP PRN (12:55)
[2019-12-29] MEDS ORDERED: Z-GUARD PASTE TP PRN (12:55)
--- NOTE | 2019-12-29 13:21 | NUR ---
PT PLACED ON CPAP [address] CRENSHAW FOR 30 MINUTES, PT HAS FAILED CPAP TRAIL 4 TIMES WITH NOW RR OF 6 PLACED PT ON SBT PT FAILED AND PER PLACE PT BACK ON PC MODE FOR HOUR THEN BACK ON CPAP TRAIL
[2019-12-29] MEDS ORDERED: FUROSEMIDE 40 MG/4 ML VIAL IVP SCH (13:30)
--- NOTE | 2019-12-29 14:00 | NUR ---
VSS, FLACC 0, NO S/S OF DISTRESS, POSITION CHANGED FOR OFF LOAD PRESSURE.
[2019-12-29] MEDS: Z-GUARD PASTE TP SCH (14:04)
[2019-12-29] MEDS: HYDRAGUARD CREAM TP SCH (14:05)
[2019-12-29] MEDS: hydrALAZINE 20 MG/ML VIAL IVP PRN ×2 (14:22→20:15)
--- NOTE | 2019-12-29 15:11 | NUR ---
pt placed on sbt trail 5 ps 12 pt is awake with daughter at bedside
--- NOTE | 2019-12-29 15:57 | NUR ---
PT FAILED SBT MODE ON FOR 21MINUTES LOW RR 6 WILL TRY AGAIN TOMORROW
--- NOTE | 2019-12-29 16:00 | NUR ---
PM CARE AND DENTON CATHETER CARE PROVIDED, ORAL CARE AND SUCTION PROVIDED, POSITION CHANGED FOR OFF LOAD PRESSURE, PATIENT TOLERATED WELL.
--- NOTE | 2019-12-29 16:27 | NUR ---
PRIMARY RN CALLED FOR ASSESSMENT. PT. WITH CHANGE OF SKIN CONDITION. SKIN ASSESSMENT DONE WITH PRIMARY RN, DAUGHTER AT BEDSIDE EXPLAINED TO DAUGHTER, SUNG, COMORBIDITIES RELATED TO SKIN BREAKS PT. ADMITTED WITH HI RISKS FOR GUILLERMO SCALE AND PT. WITH POOR OXYGENATION/PERFUSION. POC DISCUSSED, RISKS AND BENEFITS EXPLAINED, ALL QUESTIONS ANSWERED. DAUGHTER VERBALIZES UNDERSTANDING. INTEGUMENTARY: -LEFT EAR DTI 1X0.5CM 100% MAROON -SACRALCOCCYX DTI WITH MULTIPLE BLOOD FILLED BLISTERS, 3X3CM WITH SURROUNDING REDNESS TISSUE EXTENDED TO RIGHT AND LEFT BUTTOCK -LEFT BUTTOCK DTI 4X4CM 100% MAROON COLOR, CRIS WOUND TOWARD 10 O'CLOCK DIRECTION 1X1CM DTI 100% MAROON COLOR -RIGHT BUTTOCK STAGE 2 PRESSURE ULCER 1X0.5CM WITH SUPERFICIAL DEPTH, WOUND BED 100% RED, MOIST, NO ODOR, CRIS WOUND SKIN INTACT WITH SURROUNDING PURPLE COLOR -RIGHT WRIST MULTIPLE PIN POINTS CLEAR FLUIDS BLISTERS FROM COMPLAINT INVESTIGATIONS OFFICER WRIST RESTRAINT RECOMMENDATION: -CLEANSE LEFT EAR WITH NS, PAT DRY APPLY HYDRAGUARD TO LEFT EAR BID RASHI, OFFLOADING LEFT EAR -LEFT BUTTOCK AND SACRALCOCCYX CLEANSE WITH NS. PAT DRY, APPLY OPTIFOAM, MONITOR PLACEMENT QD AND CHANGE PRN IF SOILING, OFFLOADING AREA -RIGHT BUTTOCK CLEANSE WITH NS. PAT DRY, APPLY Z- GUARD AND OPTIFOAM, MONITOR PLACEMENT QD AND CHANGE PRN IF SOILING, OFFLOADING AREA -APPLY SKIN PREP TO RIGHT WRIST BID AND TRUCKING CONTRACTOR -TURN AND REPOSITION Q2H, OFFLOADING SACRALCOCCYX, BUTTOCKS AND LEFT EAR -OFFLOADING BILATERAL HEELS -PRESSURE REDISTRIBUTION SURFACE -RD CONSULT AND FOLLOW RECOMMENDATIONS WILL FOLLOW UP Q7 DAYS, PLEASE NOTIFIED WOUND CARE NURSE IF ANY QUESTIONS OR CHANGE OF SKIN CONDITIONS. Addendum: 12/29/19 at 1731 by Yelena Houston RN (Grace) SPOKE TO DR. ADAM ALL NEW SKIN BREAKS REPORTED, POC DISCUSSED.
[2019-12-29] MEDS: ATORVASTATIN 20 MG TAB PO SCH (16:44)
--- NOTE | 2019-12-29 16:46 | NUR ---
12/29/19 RD FOLLOW UP COMPLETED PLEASE REFER TO NUTRITION ASSESSMENT UNDER CARE ACTIVITY FOR ESTIMATED NUTRITIONAL NEEDS. 1. CONTINUE GLUCERNA 1.2 @ 55 ML/HR TOLERATED. 2. RD TO FOLLOW-UP 2-3 DAYS, HIGH RISK REVIEWED BY KIRTI ACOSTA RD
--- NOTE | 2019-12-29 17:50 | NUR ---
REMOVED SATURNINO ORDERED, PRESSURE APPLIED, COVERED WITH DRESSING. PATIENT TOLERATED WELL.
--- NOTE | 2019-12-29 18:00 | NUR ---
PATIENT IS MORE ALERT, AGITATED, FIGHTING FOR THE RESTRAIN, DENIES PAIN, NO S/S OF DISTRESS, BITING THE TUBES, BP 188/138, HR 134, RR 17, O2 SAT 94%, DR. ADAM MADE AWARE, ATIVAN GIVEN, WILL CONTINUE TO MONITOR.
--- NOTE | 2019-12-29 18:30 | NUR ---
PATIENT'S IS MORE CALM AT THIS TIME, DAUGHTER CAME IN, UPDATED PATIENT'S CONDITION, STATED WILL HELP TO CLAM HIM DOWN.
--- NOTE | 2019-12-29 19:30 | NUR ---
RECEIVED PT REPORT FROM [facility] NURSE. PT RESTING IN BED WITH DAUGHTER AT BEDSIDE. RASS -3. DRY WEIGHT 68KG. PERRL. DTI TO LEFT EAR. ETT TO VENT. ETT @ 25CM, LIP LINE. VENT AC/PC MODE: PC 24, PEEP 5, RR 12, 45% FI02. COARSE LUNG SOUNDS THROUGHOUT. OGT PATENT, + PLACEMENT VERIFIED VIA AIR BOLUS. ZERO RESIDUAL. GLUCERNA 1.2 RUNNING @ 55 CC/HR AND FWF 130 Q6. BOWEL SOUNDS ACTIVE X4. NO ABDOMINAL TENDERNESS/ DISTENTION OBSERVED. INDWELLING URINARY CATHETER IN PLACE, DRAINING CLEAR, YELLOW, URINE, WITH SEDIMENT TO GRAVITY. DTI AND STG II NOTED TO SACRUM. SOFT WRIST RESTRAINTS IN PLACE D/T PT ATTEMPTING TO REMOVE ETT. NO INJURY, CIRCULATION CHECK WNL. PICC NOTED TO AICHA INFUSING 1/2 D5 @ 20ML/HR, MORPHINE 5MG/HR. SAFETY PRECAUTIONS REMAIN IN PLACE. BED LOW AND LOCKED. WILL CONTINUE TO MONITOR. Addendum: 12/30/19 at 0752 by Radha Martinez RN PER DAY SHIFT ELENA MCMULLEN, DR CRENSHAW ORDERED NOT TO INCREASE MORPHINE ABOVE 5MG/HR.
--- NOTE | 2019-12-29 19:30 | NUR ---
REPORT GIVEN TO CHIEF OPERATING OFFICER NURSE AT BEDSIDE FOR CONTINUE OF CARE, PT IS IN STABLE CONDITION AT THIS TIME.
--- NOTE | 2019-12-29 19:58 | NUR ---
RECEIVED PT INTUBATED WITH ETT SIZE 7.5 @ 26CM LIP LEVEL AND SECURED WITH ANCHOR-FAST. PT ON VENT SETTINGS ORDERED; VENT PLUGGED IN RED OUTLET; BVM AT BEDSIDE; HOB > 30; AND ALARMS SET AND AUDIBLE. SX MODERATE AMOUNT OF YELLOW THICK SECRETIONS FROM THE ETT. NO RESPIRATORY DISTRESS NOTED AT THIS TIME; SP02 OF 97% AND A COARSE BREATH SOUNDS. HHN TX GIVEN ORDERED WITH NO ADVERSE REACTION. FAMILY AT BEDSIDE. WILL CONTINUE TO MONITOR PT.
--- NOTE | 2019-12-29 20:21 | NUR ---
BP 171/76 AT THIS TIME. PRN HYDRALAZINE ADMINISTERED ORDERED WITHOUT INCIDENT. SAFETY PRECAUTIONS REMAIN IN PLACE. BED LOW AND LOCKED WITH CALL LIGHT WITHIN REACH. WILL CONTINUE TO FOLLOW UP.
--- NOTE | 2019-12-29 21:18 | NUR ---
REASSESSED PT R/T PRIOR PRN DOSE OF HYDRALAZINE. BP NOW AT 149/94, HR 93.
--- NOTE | 2019-12-29 22:00 | NUR ---
PT WITH INCREASED AGITATION, ATTEMPTING TO PULL WRISTS UP TOWARDS ETT WHILE IN SOFT-WRIST RESTRAINTS. PRN ATIVAN ADMINISTERED ORDERED WITHOUT INCIDENT. REPOSITIONED FACING RIGHT SIDE WITH PRESSURE AREAS OFFLOADED. BED LOW AND LOCKED. SIDE RAILS UP X2. WILL FOLLOW UP.
[2019-12-30] VITALS (53 sets, daily range): BP systolic 94–189; BP diastolic 48–104
--- NOTE | 2019-12-30 | NUR ---
REPOSITIONED WITH PRESSURE AREAS OFFLOADED. VSS. VAP ORAL CARE PROVIDED. FLACC 0. HOB 30 DEGREES. BED LOW AND LOCKED. SIDE RAILS UP X2. WILL CONTINUE TO MONITOR.
[2019-12-30] MEDS ORDERED: PIPERACILLIN/TAZOBACTAM 3.375 GM VIAL IV ONE ×2 (00:16→05:08)
[2019-12-30] MEDS: PIPERACILLIN/TAZOBACTAM 3.375 GM in DEXTROSE 5% 50 ML IV SCH ×5 (00:19→23:28)
[2019-12-30] MEDS: VANCOMYCIN 750 MG in DEXTROSE 5% 250 ML IV SCH ×4 (00:35→23:00)
[2019-12-30] MEDS: HYDRAGUARD CREAM TP SCH ×2 (01:00→13:17)
[2019-12-30] MEDS: DEXT 5% / NACL 0.45% 1,000 ML IV SCH ×2 (01:05→10:00)
[2019-12-30] MEDS: Z-GUARD PASTE TP SCH ×2 (02:36→13:18)
[2019-12-30] MEDS: LORazepam 2 MG/ML VIAL IVP PRN ×2 (02:37→13:07)
--- NOTE | 2019-12-30 02:42 | NUR ---
PT ATTEMPTING TO SIT UP WHILE IN BED. BP 203/109, HR 114. ATIVAN PRN ADMINISTERED ORDERED WITHOUT INCIDENT. PT NOW RESTING CALMLY IN BED. BP 136/74, HR 93. WILL FOLLOW UP
[2019-12-30] MEDS: ALBUTEROL SULFATE/IPRATROPIU 3 ML SOL IH SCH ×6 (03:10→22:47)
[2019-12-30] MEDS: hydrALAZINE 20 MG/ML VIAL IVP PRN ×2 (05:01→13:15)
--- NOTE | 2019-12-30 05:03 | NUR ---
BP 179/99. PRN HYDRALAZINE ADMINISTERED ORDERED. SAFETY PRECAUTIONS REMAIN IN PLACE. HOB 35 DEGREES WITH SIDE RAILS UP X2. WILL FOLLOW UP.
[2019-12-30 06:11] LABS: HEMATOCRIT 44.5 % (36-52); HEMOGLOBIN 15.1 g/dL (12.0-18.0); MEAN CORPUSCULAR HEMOGLOBIN 31 pg (27-31); MEAN CORPUSCULAR HGB CONC 34 g/dL (33-37); MEAN CORPUSCULAR VOLUME 92.6 fL (80-94); PLATELET COUNT (AUTO) 169 K/uL (140-450); RED CELL DISTRIBUTION WIDTH 13.6 % (11.6-13.7)
[2019-12-30 06:20] LABS: ANION GAP 11.6 (8-16); CARBON DIOXIDE 31.1 mmol/L (21-32); CREATININE 0.8 mg/dL (0.6-1.3); POTASSIUM 3.7 mmol/L (3.5-5.1)
[2019-12-30 06:23] LABS: WHITE BLOOD COUNT (AUTO) 27.5 K/uL (4.8-10.8)
[2019-12-30] MEDS: BLOOD GLUCOSE MONITORING 1 DEV DEV FS SCH ×4 (06:53→20:08)
[2019-12-30] MEDS: INSULIN LISPRO SLIDING SCALE 100 UNITS/ML VIAL SUBQ PRN ×3 (07:03→17:06)
[2019-12-30] MEDS: BUDESONIDE 0.5 MG/2 ML NEBU INH SCH ×2 (07:19→19:36)
[2019-12-30 07:20] LABS: LYMPHOCYTES % (MANUAL) 4 % (20-46); MONOCYTES % (MANUAL) 7 % (5-12)
--- NOTE | 2019-12-30 07:20 | NUR ---
RECEIVED BEDSIDE REPORT FROM [employer] NURSE, PT IS AAOX1, PERRL, FOLLOW SIMPLE COMMANDS, VSS, DENIES PAIN, ETT TO VENT WITH AC/PC MODE, FIO2 40, R 12, PEEP 8, P 24, NO S/S OF DISTRESS, COARSE LUNG SOUNDS NICHOLE. SR ON SOCIAL SERVICE ASSISTANT, CAP REFILL <2 SEC, NON PITTING EDEMA ON NICHOLE. HANDS NOTED, SOFT LARGE ROUND ABDOMEN WITH ACTIVE BOWEL SOUNDS, OGT IN PLACE FEEDING WITH GLUCERNA 1.2 AT 55 ML/HR, >250 RESIDUALS NOTED, HELD FEEDING ORDERED, DENTON CATHETER IN PLACE WITH SEDIMENT URINE VIA GRAVITY, SKIN IS WARM AND DRY TO TOUCH, INTACT, PICC LINE TO AICHA, PATENT, RUNNING D5 1/2 NS AT 20 ML/HR, MORPHINE DRIP AT 5MG/HR, GENERALIZED WEAKNESS TO ALL EXTREMITIES, SOFT RESTRAIN TO NICHOLE. WRIST, NO INJURY NOTED, HOB ELEVATED TO 30 DEGREES, SAFETY MEASURES IN PLACE, WILL CONTINUE TO MONITOR.
[2019-12-30] MEDS: LORATADINE 10 MG TAB PO SCH (08:57)
[2019-12-30] MEDS: LACTOBACILLUS RHAMNOSUS GG 1 EACH CAP PO SCH (08:57)
[2019-12-30] MEDS: MONTELUKAST SODIUM 10 MG TAB PO SCH (08:57)
[2019-12-30] MEDS: PANTOPRAZOLE 40 MG INJ VIAL IVP SCH ×2 (08:57→20:41)
[2019-12-30] MEDS: methylPREDNISolone SS 125 MG/2 ML VIAL IVP SCH (08:57)
[2019-12-30] MEDS: methylPREDNISolone SS 40 MG/ML VIAL IVP SCH ×2 (09:00→20:42)
[2019-12-30] MEDS ORDERED: FUROSEMIDE 40 MG/4 ML VIAL IVP SCH (09:00)
--- NOTE | 2019-12-30 09:00 | NUR ---
SCHEDULED MEDICATION GIVEN, PATIENT TOLERATED WELL, PATIENT'S DAUGHTER AT BEDSIDE, PATIENT IS MORE ALERT AND CLAM.
--- NOTE | 2019-12-30 09:30 | NUR ---
HELD MORPHINE DRIP AT THIS TIME FOR WEANING TRAIL, PATIENT DENIES ANY PAIN, RT NOTIFIED.
--- NOTE | 2019-12-30 11:00 | NUR ---
PT ON SBT TRIAL 5\12 FOR 45 MINUTES FAILED DUE TO LOW RR
[2019-12-30] MEDS: ACETAMINOPHEN 325 MG TAB PO PRN (11:44)
--- NOTE | 2019-12-30 12:00 | NUR ---
ORAL CARE AND SUCTION PROVIDED, NO S/S OF DISTRESS, PT IS AGITATED, REORIENTED PATIENT, PATIENT KNOCKED HEAD UNDERSTANDING, BUT STILL RESTLESS, POSITION CHANGED FOR OFF LOAD PRESSURE. Addendum: 12/30/19 at 1403 by Huma Dela Cruz RN FEEDING RESIDUALS CHECKED 30 ML AT THIS TIME, RESUME TUBE FEEDING AT THIS TIME.
--- NOTE | 2019-12-30 12:30 | NUR ---
PATIENT IS AGITATED, HR AND BP ELEVATED, RESTLESSNESS, ATIVAN GIVEN, WILL CONTINUE TO MONITOR.
--- NOTE | 2019-12-30 13:22 | NUR ---
Dr. CRENSHAW CAME IN TO SEE PATIENT AT BEDSIDE, DR. ADAM WELL, UPDATED PATIENT CURRENT CONDITION, WILL FOLLOW UP WITH NEW ORDERS.
--- NOTE | 2019-12-30 13:30 | NUR ---
HOLD TUBE FEEDING AT THIS TIME PER DR. CRENSHAW.
--- NOTE | 2019-12-30 15:21 | NUR ---
PATIENT IS EXTUBATED BY RT PER DR. CRENSHAW'S ORDER, PATIENT TOLERATED WELL, ON MASK AT 2L, O2 SAT 96%
--- NOTE | 2019-12-30 15:23 | NUR ---
PT HAD AIR LEAK AROUND CUFF, PT EXTUBATED HHN GIVEN DAUGHTER PRESENT
--- NOTE | 2019-12-30 16:00 | NUR ---
PATIENT IS RESTING IN BED, NO S/S OF DISTRESS, ON O2 AT 3L VIA MASK, FAMILY MEMBERS AT BEDSIDE, PM CARE AND DENTON CATHETER CARE PROVIDED, ORAL CARE DONE, POSITION CHANGED FOR COMFORT AND OFF LOAD PRESSURE.
[2019-12-30] MEDS: ATORVASTATIN 20 MG TAB PO SCH (17:05)
--- NOTE | 2019-12-30 18:00 | NUR ---
NO S/S OF DISTRESS, RESTING IN BED, VSS, DENIES PAIN, FAMILY MEMBERS AT BEDSIDE, POSITION CHANGED FOR OFF LOAD PRESSURE.
--- NOTE | 2019-12-30 18:45 | NUR ---
OGT REMOVED PER DR. BAILEY'S ORDER.
--- NOTE | 2019-12-30 19:18 | NUR ---
REPORT GIVEN TO MOLD SWABBER NURSE AT BEDSIDE FOR CONTINUE OF CARE, PT IS IN STABLE CONDITION AT THIS TIME.
--- NOTE | 2019-12-30 19:30 | NUR ---
RECEIVED PT REPORT FROM [facility]. PT RESTING IN BED WITH DAUGHTER AT BEDSIDE. PERRL. HEBREW SPEAKING ONLY. DTI TO LEFT EAR. COARSE LUNG SOUNDS THROUGHOUT. BOWEL SOUNDS ACTIVE X4. NO ABDOMINAL TENDERNESS/ DISTENTION OBSERVED. SCATTERED PURPLE ECCHYMOSIS NOTED TO BUE. ECCHYMOSIS NOTED TO RT FEMORAL AREA. INDWELLING URINARY CATHETER IN PLACE, DRAINING CLEAR, YELLOW, URINE, WITH SEDIMENT TO GRAVITY. DTI AND STG II NOTED TO SACRUM. PICC NOTED TO AICHA INFUSING 1/2 D5 @ 20ML/HR. SAFETY PRECAUTIONS REMAIN IN PLACE. BED LOW AND LOCKED. WILL CONTINUE TO MONITOR.
[2019-12-30] MEDS ORDERED: ENALAPRILAT 2.5 MG/2 ML VIAL IVP SCH (20:00)
--- NOTE | 2019-12-30 21:00 | NUR ---
RBS CHECKED= 141. NO INSULIN ADMINISTERED PER SLIDING SCALE. ALL DUE MEDICATIONS ADMINISTERED ORDERED. NO ADR NOTED. BED LOW AND LOCKED. CALL LIGHT WITHIN REACH AND FUNCTIONING PROPERLY. WILL CONTINUE TO MONITOR.
--- NOTE | 2019-12-30 23:00 | NUR ---
BED BATH GIVEN. REPOSITIONED WITH PRESSURE AREAS OFFLOADED. ORAL CARE PROVIDED. BED LOW AND LOCKED. CALL LIGHT WITHIN REACH. WILL CONT TO MONITOR.
[2019-12-31] VITALS (12 sets, daily range): BP systolic 110–168; BP diastolic 68–97
[2019-12-31] MEDS: Z-GUARD PASTE TP SCH ×2 (00:17→13:25)
[2019-12-31] MEDS: HYDRAGUARD CREAM TP SCH ×2 (00:17→13:25)
[2019-12-31] MEDS: MORPHINE SULFATE 2 MG/ML SYR IVP PRN (00:28)
--- NOTE | 2019-12-31 01:00 | NUR ---
PT MOANING AND GRIMACING. FLACC 8. PRN MORPHINE ADMINISTERED ORDERED. NO ADR AT THIS TIME. SAFETY PRECAUTIONS REMAIN IN PLACE. BED LOW AND LOCKED WITH CALL LIGHT IN REACH. WILL FOLLOW UP
--- NOTE | 2019-12-31 03:00 | NUR ---
PT RESTING IN BED. FLACC 0. REPOSITIONED WITH PRESSURE AREAS OFFLOADED. VSS. NO SOB. WILL CONTINUE TO MONITOR
[2019-12-31] MEDS: ALBUTEROL SULFATE/IPRATROPIU 3 ML SOL IH SCH ×6 (03:01→22:50)
[2019-12-31] MEDS: PIPERACILLIN/TAZOBACTAM 3.375 GM in DEXTROSE 5% 50 ML IV SCH ×3 (05:34→18:07)
[2019-12-31 06:10] LABS: HEMATOCRIT 44.9 % (36-52); MEAN CORPUSCULAR HEMOGLOBIN 30 pg (27-31); MEAN CORPUSCULAR HGB CONC 33 g/dL (33-37); PLATELET COUNT (AUTO) 157 K/uL (140-450); RED BLOOD CELL COUNT(AUTO) 4.93 MIL/uL (4.20-6.10); RED CELL DISTRIBUTION WIDTH 13.2 % (11.6-13.7)
[2019-12-31 06:32] LABS: ANION GAP 11.2 (8-16); CARBON DIOXIDE 29.2 mmol/L (21-32); CREATININE 0.8 mg/dL (0.6-1.3); POTASSIUM 3.4 mmol/L (3.5-5.1)
--- NOTE | 2019-12-31 07:00 | NUR ---
RECIVED PT ON VENT WITH SETTINGS CHARTED BREATH SOUNDS PRESENT BILAT SXN PT WITH MIN AMT OFF WHITE SECS TRACH SITE SECURE AMBU BAG BEDSIDE VENT PLUGGED INTO RED OUTLET WILL CONTINUE TO MONITOR PT ON VENT
[2019-12-31] MEDS: INSULIN LISPRO SLIDING SCALE 100 UNITS/ML VIAL SUBQ PRN ×3 (07:08→21:30)
[2019-12-31] MEDS: BUDESONIDE 0.5 MG/2 ML NEBU INH SCH ×2 (07:14→19:59)
--- NOTE | 2019-12-31 07:25 | NUR ---
BEDSIDE REPORT RECEIVED FROM EDGE BANDING OFF BEARER NURSE, PT AWAKE ALERT, OX1 TO SELF ONLY, PT CONFUSED BUT FOLLOWS COMMANDS, MOVES ALL EXT, RESP EVEN UNLABORED, BS COARSE, + COUGH WITH THICK LIGHT BROWN SPUTUM, VITALS STABLE ON MONITOR, SKIN WARM DRY COLOR WNL, PICC LINE TO AICHA, SITE WNL, D51/2 NS AT 20ML/HR, ABD SOFT, NON DISTENDED, DENTON CATH IN PLACE, DRAINING TO GRAVITY, BILAT UE WITH LARGE PURPLE BRUISING, BRUISING ALSO TO R HIP/GROIN (S/P ART LINE), BRUISING TO LEFT LOWER ABD/FLANK, SCATTERED SMALL BRUISING TO ABD, SACRAL/BUTTOCKS COVERED WITH OPTIFOAM, CDI, SCD IN PLACE, POC REVIEWED, ALL SAFETY MEASURES IN PLACE, WILL CONTINUE TO MONITOR.
[2019-12-31] MEDS: BLOOD GLUCOSE MONITORING 1 DEV DEV FS SCH ×4 (07:30→21:28)
[2019-12-31 08:27] LABS: WHITE BLOOD COUNT (AUTO) 26.5 K/uL (4.8-10.8)
[2019-12-31 08:28] LABS: LYMPHOCYTES % (MANUAL) 4 % (20-46); MONOCYTES % (MANUAL) 3 % (5-12)
[2019-12-31] MEDS: methylPREDNISolone SS 40 MG/ML VIAL IVP SCH ×2 (08:35→20:30)
[2019-12-31] MEDS: PANTOPRAZOLE 40 MG INJ VIAL IVP SCH ×2 (08:35→20:30)
[2019-12-31] MEDS: VANCOMYCIN 1,000 MG in DEXTROSE 5% 250 ML IV SCH ×2 (08:36→18:07)
--- NOTE | 2019-12-31 08:45 | NUR ---
20G PIV INSERTED TO LEFT FA, PT CARMEN WELL, R UA PICC LINE REMOVED, CATH TIP SENT FOR CULTURE, BLEEDING CONTROLLED, PT CARMEN WELL.
[2019-12-31] MEDS: LORATADINE 10 MG TAB PO SCH (08:54)
[2019-12-31] MEDS: LACTOBACILLUS RHAMNOSUS GG 1 EACH CAP PO SCH (08:54)
[2019-12-31] MEDS: MONTELUKAST SODIUM 10 MG TAB PO SCH (08:54)
[2019-12-31] MEDS: DEXT 5% /NACL 0.9% 1,000 ML IV SCH (08:55)
[2019-12-31] MEDS ORDERED: KCL 20 MEQ/WATER INJ PREMIX 100 ML IV SCH (09:00)
[2019-12-31] MEDS ORDERED: KETOROLAC 30 MG/ML VIAL IVP SCH (10:00)
--- NOTE | 2019-12-31 10:45 | NUR ---
PT TURNING SIDE TO SIDE, RESTLESS, AGITATED, APPEARS IN PAIN, NO PRN IV PAIN MED ORDER, WILL NOTIFY MD.
--- NOTE | 2019-12-31 11:15 | NUR ---
PT RESTLESS, PULLING ON IV TUBINGS, MONITOR LEADS, PULLING OFF GOWNS, IV PULLED OUT AGAIN, DR ADAM NOTIFIED.
[2019-12-31] MEDS ORDERED: DEXMEDETOMIDINE HCL 200 MCG in NACL 0.9% 48 ML IV PRN (11:54)
[2019-12-31] MEDS: ACETAMINOPHEN 325 MG TAB PO PRN ×2 (12:25→16:03)
[2019-12-31] MEDS: HYDROcodone/APAP 7.5/325 MG 1 TAB PO PRN ×2 (12:25→16:03)
--- NOTE | 2019-12-31 12:30 | NUR ---
*S.T. Bedside Swallow Eval completed* See report for details. Pt presents w/ mild oral difficulty w/ solids c/b prolonged mastication with mild diffuse oral residue post swallow. No overt s/s aspiration. Pt appeared to be in mod-severe pain, was unable to quantify pain verbally due to lethargy/discomfort/language barrier. Nsg aware that pt is in pain. Recommend: 1) Advance to mechanical soft ground diet, thin liquids okay. Straws okay. 2) P.O. meds crushed and mixed w/ puree such as yogurt. 3) Advance diet as tolerated, as pain and alertness improve. 4) Nsg to assist w/ tray set up to promote self-feeding and/or 1:1 feeding, due to general motor weakness and discoordination per physical therapy report. No further skilled ST indicated at this time. DC to nsg care. D/w wire charger Sue. Time 1021-8134
[2019-12-31] MEDS ORDERED: OLANZapine 2.5 MG TAB PO SCH ×2 (14:09→21:00)
[2019-12-31] MEDS ORDERED: DOCUSATE SODIUM 100 MG GELCAP PO SCH (15:00)
[2019-12-31] MEDS ORDERED: BISACODYL 10 MG SUPP RC SCH (15:00)
[2019-12-31] MEDS ORDERED: MINERAL OIL 135 ML ENEM RC SCH (15:00)
--- NOTE | 2019-12-31 15:02 | NUR ---
20G STARTED AGAIN TO LEFT HAND BY STUDENT NURSE WITH PROFESSOR, WRAPPED WITH RADHA FOR PROTECTION.
--- NOTE | 2019-12-31 15:22 | NUR ---
12/31/19 RD FOLLOW UP COMPLETED PLEASE REFER TO NUTRITION ASSESSMENT UNDER CARE ACTIVITY FOR ESTIMATED NUTRITIONAL NEEDS. 1. RECOMMEND CARDIAC, 60 GM CCHO, MECHANICAL SOFT GROUND DIET 2. GLUCERNA & DAISHA BID 3. PROVIDE FEEDING ASSISTANCE NEEDED 4. ENCOURAGE PO INTAKE 5. RD TO FOLLOW-UP 2-3 DAYS, HIGH RISK KRYSTEN BOND, RD
--- NOTE | 2019-12-31 15:32 | NUR ---
DR CRENSHAW AT BEDSIDE, PT'S AT BEDSIDE, TRYING TO FEED SOFT RICE.
--- NOTE | 2019-12-31 16:08 | NUR ---
PT TOOK OUT ANOTHER IV, PT UNABLE TO SIT STILL, REMOVES ALL LINEN AND GOWN, REMOVES CARDIAC LEADS, DR CHAVEZ NOTIFIED, RESTRAINT ORDER RECEIVED, WILL NOTIFY FAMILY THAT PATIENT MAY BENEFIT FROM FAMILIAR FACE AT BEDSIDE.
--- NOTE | 2019-12-31 16:20 | NUR ---
XIOMY AND GAL ENEMA GIVEN BY STUDENT NURSE AND PROFESSOR.
--- NOTE | 2019-12-31 17:30 | NUR ---
5TH IV THIS SHIFT PLACED TO LEFT FA, 20G, PT CARMEN WELL, PT PLACED IN RESTRAINTS, COOL BED BATH GIVEN, WOUND CARE DONE, PT PLACED BACK ON MONITOR, WILL CONTINUE TO MONTIOR
[2019-12-31] MEDS: ATORVASTATIN 20 MG TAB PO SCH (18:16)
--- NOTE | 2019-12-31 18:45 | NUR ---
DR BAILEY AT BEDSIDE, REPORTED OF PINK TINGED URINE IN DENTON BAG. DAUGHTER SUNG AT BEDSIDE.
--- NOTE | 2019-12-31 19:10 | NUR ---
DAUGHTER SUNG AND AT BEDSIDE, DAUGHTER ENCOURAGED TO STAY AT BEDSIDE AT ALL TIMES TO HELP PT WITH ORIENTATION.
--- NOTE | 2019-12-31 19:20 | NUR ---
BEDSIDE REPORT GIVEN TO FIREWOOD CUTTER NURSE.
--- NOTE | 2019-12-31 19:30 | NUR ---
REPORT GIVEN BY AM SHIFT. PT IS AWAKE,ALERT, ANSWER SIMPLE QUESTIONS. CONFUSION NOTED. CONT ON O2 AT 2LPM VIA N/C TOLERATED WELL, NO S/S OF RESP DISTRESS, NO SOB. HOB UP 30-45 DEGREES ALL THE TIMES.SR ON MONITOR. IV LINE TO LFA NO 20 INTACT WELL WITH D5 IN NS RUNNING AT 100 CC/HR. PT NO BM 10 DAYS PER REPORT AND MEDICATIONS FOR CONSTIPATION GIVEN BY AM SHIFT. NO BM YET. ABD SOFT NON DISTENDED. PT DENIAL ANY PAIN AT THIS TIME. SKIN WARM TO TOUCH. DAUGHTER AND AT BED SIDE. F/C INTACT WITH YELLOW CLOUDY URINE. KEPT PT CLEAN AND DRY. CALL LIGHT IN REACH.
[2019-12-31] MEDS: LEVOFLOXACIN 750 MG/D5W PREMIX 150 ML IV SCH (20:30)
[2019-12-31] MEDS: OLANZapine 2.5 MG TAB PO SCH (20:30)
--- NOTE | 2019-12-31 22:00 | NUR ---
ALL NIGHT MEDS GIVEN. BLOOD SUGAR WAS 152 AND 2 UNITS HUMALOG GIVEN ORDER. REPOSITION PT FOR COMFORT.PT DENIAL ANY PAIN.
[2019-12-31] MEDS: KCL 20 MEQ/WATER INJ PREMIX 200 ML IV PRN (22:28)
--- NOTE | 2019-12-31 23:15 | NUR ---
COME TO SEE PT AND UP DATE PT CONDITION TO
[2020-01-01] VITALS (9 sets, daily range): BP systolic 106–137; BP diastolic 55–101
--- NOTE | 2020-01-01 00:30 | NUR ---
PT BM X1 SMALL.
[2020-01-01] MEDS: HYDRAGUARD CREAM TP SCH ×2 (01:00→14:12)
[2020-01-01] MEDS: Z-GUARD PASTE TP SCH ×2 (01:00→14:11)
--- NOTE | 2020-01-01 02:31 | NUR ---
PT IS SLEEPING AT THIS TIME NO S/S OF ANY DISTRESS.
[2020-01-01] MEDS: ALBUTEROL SULFATE/IPRATROPIU 3 ML SOL IH SCH ×6 (03:00→22:57)
--- NOTE | 2020-01-01 05:00 | NUR ---
PT HAS X1 BM SMALL WITH BROWN COLOR.
--- NOTE | 2020-01-01 05:30 | NUR ---
AM CARE GIVEN AND TOLERATING WELL. AT BED SIDE.
[2020-01-01] MEDS: DEXT 5% /NACL 0.9% 1,000 ML IV SCH ×3 (06:00→19:49)
--- NOTE | 2020-01-01 06:30 | NUR ---
COME AND UP DATE PT CONDITION TO
[2020-01-01] MEDS: BLOOD GLUCOSE MONITORING 1 DEV DEV FS SCH ×4 (06:34→19:50)
[2020-01-01] MEDS: INSULIN LISPRO SLIDING SCALE 100 UNITS/ML VIAL SUBQ PRN ×3 (06:35→16:42)
[2020-01-01] MEDS: BUDESONIDE 0.5 MG/2 ML NEBU INH SCH ×2 (07:25→20:25)
--- NOTE | 2020-01-01 07:40 | NUR ---
REPORT GIVEN TO MESFIN MCMULLEN.PT IS AWAKE AND NO S/S OF PAIN.
--- NOTE | 2020-01-01 08:00 | NUR ---
RECIEVED PT WHO WAS FEELING ILL AND CAME TO THE ER. HE DOES HAVE HX OF ASTHMA AND WAS FOUND TO BE A AND B INFLUENZA POSITIVE. HE WAS DX WITH COPD EXACERBATION WAS TRIED ON BIPAP BUT HAD TO BE INTUBATED. THE PT WAS HAVING SERIOUS BRONCHOSPASMS AND WAS ON PARALYTICS AT ONE TIME. HE NOW IS CONFUSED BUT COOPERATIVE. HE ATE SOME BREAKFAST BUT POOR APPETITE. HE IS PURPOSEFULL WITH ALL EXTREMITES. HE IS SR WITH BP WITHIN NORMAL LIMITS. HE WAS EXTUBATED ON THE AND NOW IS BREATHING EASILY WITH 02 VIA NASAL CANNULA. THE PT IS ABLE TO SWALLOW MEDS. HE IS HAVING SMALL LOOSE BOWEL MOVEMENTS. HIS SKIN IS DRY BUT HAS STAGE II TO COCCYX/SACRAL AREA.
[2020-01-01 09:27] LABS: BASOPHILS % (AUTO) 0.2 % (0.0-2.0); EOSINOPHILS % (AUTO) 0.1 % (0.0-4.0); HEMATOCRIT 42.4 % (36-52); HEMOGLOBIN 14.1 g/dL (12.0-18.0); LYMPHOCYTES # (AUTO) 0.8 K/uL (2.0-11.5); LYMPHOCYTES % (AUTO) 4.4 % (20.5-51.1); MEAN CORPUSCULAR HEMOGLOBIN 30 pg (27-31); MEAN CORPUSCULAR HGB CONC 33 g/dL (33-37); MEAN CORPUSCULAR VOLUME 91.4 fL (80-94); MONOCYTES # (AUTO) 1.6 K/uL (0.8-1.0); MONOCYTES % (AUTO) 9.1 % (1.7-9.3); NEUTROPHILS # (AUTO) 15.6 K/uL (1.8-7.7); NEUTROPHILS % (AUTO) 86.2 % (42.2-75.2); PLATELET COUNT (AUTO) 122 K/uL (140-450); RED BLOOD CELL COUNT(AUTO) 4.65 MIL/uL (4.20-6.10); RED CELL DISTRIBUTION WIDTH 13.4 % (11.6-13.7)
[2020-01-01 09:28] LABS: ANION GAP 8.7 (8-16); CARBON DIOXIDE 27.5 mmol/L (21-32); CREATININE 0.8 mg/dL (0.6-1.3); MAGNESIUM 2.2 mg/dL (1.8-2.4); POTASSIUM 3.2 mmol/L (3.5-5.1)
[2020-01-01 09:29] LABS: PHOSPHORUS 3.1 mg/dL (2.5-4.9)
--- NOTE | 2020-01-01 09:30 | NUR ---
PT. AT BEDSIDE , PATIENT ABLE TO SIT UP AT BEDSIDE, STEP ON THE FLOOR BUT UNABLE TO WALK BECAUSE BOTH LEGS IS TOO WEAK.PT. MORE AWAKE ALERT AND COOPERATIVE.
--- NOTE | 2020-01-01 10:00 | NUR ---
THE PT INITIALLY REFUSED ORAL MEDS BUT THE CHARGE NURSE CONVINCED HIM TO COOPERATE AND HE COMPLIED. HE DID HAVE A LOOSE BOWEL MOVEMENT TIMES TWO. I CLEANED HIM - APPLIED ZGAURD - AND REAPPLIED ANOTHER OPTI FOAM.
[2020-01-01] MEDS: PANTOPRAZOLE 40 MG INJ VIAL IVP SCH ×2 (10:27→20:43)
[2020-01-01] MEDS: methylPREDNISolone SS 40 MG/ML VIAL IVP SCH ×2 (10:27→20:42)
[2020-01-01] MEDS: LACTOBACILLUS RHAMNOSUS GG 1 EACH CAP PO SCH (10:54)
[2020-01-01] MEDS: ACETAMINOPHEN 325 MG TAB PO PRN (10:57)
[2020-01-01] MEDS: LORATADINE 10 MG TAB PO SCH (10:59)
[2020-01-01] MEDS: MONTELUKAST SODIUM 10 MG TAB PO SCH (10:59)
[2020-01-01] MEDS: OLANZapine 2.5 MG TAB PO SCH ×2 (10:59→20:42)
[2020-01-01] MEDS: KCL 20 MEQ/WATER INJ PREMIX 200 ML IV SCH ×2 (12:02→14:11)
--- NOTE | 2020-01-01 13:00 | NUR ---
RECEIVED REPORT FROM LETHA MCMULLEN. PT IS AWAKE AND ALERT. FOLLOWS COMMANDS. ARREGUIN BUT SL WEAKNESS NOTED. ABLE TO TURN TO SIDES WITH MINIMAL ASSIST. IV D50.9NS INFUSING AT 100 ML/HR VIA RT FA IV SITE. 02 2 L/MIN/NC. COUGHS PRODUCTIVELY. SUCTIONED ORALLY FOR SMALL AMT. THICK YELLOWISH SECRETIONS. DENIES ANY SOB. FC INTACT AND PATENT DRAINING TO SL TARAN URINE.
--- NOTE | 2020-01-01 14:00 | NUR ---
PT'S AT BEDSIDE. SPOKE TO WOOD TYPE CUTTER. Addendum: 01/01/20 at 1827 by Darline Burris RN RE DISCHARGE PLANNING
--- NOTE | 2020-01-01 15:20 | NUR ---
DR. CRENSHAW HERE TO SEE AND EXAMINE PT.
--- NOTE | 2020-01-01 16:00 | NUR ---
PT. PULLED IV OUT. RESTARTED ON LEFT WRIST WITH G 22 ANGIOCATH X 2 ATTEMPTS. PURPOSE OF IV EXPLAINED TO PT.
--- NOTE | 2020-01-01 16:25 | NUR ---
PT NON COMPLIANT
--- NOTE | 2020-01-01 17:30 | NUR ---
DENTON CATHETER DC'D. URINAL AT BEDSIDE. PT INSTRUCTED ON HOW TO USE THE URINAL.
--- NOTE | 2020-01-01 17:45 | NUR ---
FED DINNER. JUST ATE 30%. REFUSED TO EAT ANYMORE. JUST TOOK FEW SIPS OF DAISHA. DRANK APPLE JUICE.
[2020-01-01] MEDS: ATORVASTATIN 20 MG TAB PO SCH (17:48)
--- NOTE | 2020-01-01 18:00 | NUR ---
USED THE BEDPAN. HAD LARGE AMT SOFT FORMED BROWNISH STOOLS. PERINEAL CARE DONE.
--- NOTE | 2020-01-01 18:30 | NUR ---
DAUGHTER AT BEDSIDE. WILL TRY TO FEED PT.
--- NOTE | 2020-01-01 19:15 | NUR ---
TRANSFERRED TO 123 B PER BED ON ENERGY SPECIALIST AND 02 AT 2 L/MIN/NC. REPORT GIVEN TO KEMI TSE.
--- NOTE | 2020-01-01 19:16 | NUR ---
RECEIVED BEDSIDE REPORT FROM VAISHNAVI CONTRACT ASSOCIATE MANAGER. PT TRANSFERRED TO ROOM 123B WITH RN AND ICU CHARGE AND DAUGHTER AT BEDSIDE. PT IS PORTUGUESE SPEAKING UNDERSTANDS SOME [place] DAUGHTER SPEAKS [place] WELL. PT ON NC 2L O2 RR ARE EQUAL AND UNLABORED. LUNG SOUNDS CLEAR AND DIMINISHED AT BASE. PT WITH DTI ON SACRAL WITH OPTIFOAM ON C/D/I. IV ON L FA 22G IVF INFUSING WELL. PER RN DENTON CATH D/C AT 1730 HAS NOT VOID SINCE. WILL ENCOURAGE PT TO USE URINAL. PT ON BEDREST D/T WEAKNESS. UNABLE TO AMBULATE AT THIS TIME PER PT. PT WAS UNABLE TO STAND. PT STATES WANTS USE BATHROOM EXPLAINED TO TRY USING URINAL DAUGHTER HELPED EXPLAINED. POC DISCUSSED WITH PT AND DAUGHTER. ORIENTED PT TO ROOM AND CALL LIGHT. CALL LIGHT IS WITHIN REACH. WILL CONTINUE TO MONITOR.
[2020-01-01] MEDS: LEVOFLOXACIN 750 MG/D5W PREMIX 150 ML IV SCH (20:40)
--- NOTE | 2020-01-01 20:42 | NUR ---
VSS. DENIES PAIN STATES SORE THROAT EXPLAINED IT EXPECTED D/T INTUBATION ENCOURAGE TO DRINK WATER. LEVY MEDICATIONS GIVEN. PT REFUSED HEPARIN. EXPLAINED REASON AND IMPORTANCE STILL REFUSED. PT IS AAOX3-4 WITH MOMENTS OF CONFUSION. BLOOD SUGAR 148 NO COVERAGE NEEDED. CALL LIGHT IS WITHIN REACH. WILL CONTINUE TO MONITOR.
--- NOTE | 2020-01-01 21:55 | NUR ---
GAVE PT ANOTHER BLANKET PER REQUEST. IS AT BEDSIDE. SAFETY MEASURES ARE IN PLACE.
--- NOTE | 2020-01-01 22:42 | NUR ---
LEAVING FOR THE DAY. PT IS STABLE RESTING COMFORTABLY IN BED WITH EYES CLOSED. CHEST RISE AND FALL NOTED. SAFETY MEASURES ARE IN PLACE. CALL LIGHT IS WITHIN REACH. WILL CONTINUE TO MONITOR.
[2020-01-02] VITALS: BP 125/70
--- NOTE | 2020-01-02 | NUR ---
PATIENT USED URINAL WITH 300CC OUTPUT. PATIENT WAS CLEAN AND REPOSITION. PT WITH SMALL BM AND OPTIFOAM DRESSING CHANGED MINIMAL DRAINAGE. ALL NEEDS MET AT THIS TIME. CALL LIGHT IS WITHIN REACH.
[2020-01-02] MEDS: Z-GUARD PASTE TP SCH ×2 (00:38→13:12)
[2020-01-02] MEDS: HYDRAGUARD CREAM TP SCH ×2 (00:38→13:11)
--- NOTE | 2020-01-02 02:10 | NUR ---
PATIENT IS SLEEPING COMFORTABLY IN BED WITH EYES CLOSED. CHEST RISE AND FALL. SAFETY MEASURES ARE IN PLACE. CALL LIGHT IS WITHIN REACH. WILL CONTINUE TO MONITOR.
[2020-01-02] MEDS: ALBUTEROL SULFATE/IPRATROPIU 3 ML SOL IH SCH ×6 (03:20→23:52)
[2020-01-02 04:00] VITALS: BP 118/71
--- NOTE | 2020-01-02 04:00 | NUR ---
VITAL SIGNS ARE WITHIN NORMAL LIMITS. CALL LIGHT IS WITHIN REACH.
[2020-01-02] MEDS: DEXT 5% /NACL 0.9% 1,000 ML IV SCH ×2 (05:08→11:12)
--- NOTE | 2020-01-02 05:18 | NUR ---
IS AT BEDSIDE FEEDING PATIENT. PT CALLED TO BRING FOOD REFUSED HOSPITAL FOOD. PT IS SITTING UP AT 90 DEGREES WITH SUCTION TURNED ON. INSTRUCT AND DEMONSTRATE FEED SMALL PORTION AND SLOWLY. SAFETY MEASURES ARE IN PLACE. WILL MONITOR.
[2020-01-02 06:12] LABS: BASOPHILS % (AUTO) 0.2 % (0.0-2.0); HEMATOCRIT 41.7 % (36-52); HEMOGLOBIN 13.7 g/dL (12.0-18.0); LYMPHOCYTES # (AUTO) 0.6 K/uL (2.0-11.5); LYMPHOCYTES % (AUTO) 3.5 % (20.5-51.1); MEAN CORPUSCULAR HEMOGLOBIN 31 pg (27-31); MEAN CORPUSCULAR HGB CONC 33 g/dL (33-37); MEAN CORPUSCULAR VOLUME 93.3 fL (80-94); MONOCYTES # (AUTO) 1.2 K/uL (0.8-1.0); MONOCYTES % (AUTO) 6.7 % (1.7-9.3); NEUTROPHILS # (AUTO) 15.9 K/uL (1.8-7.7); NEUTROPHILS % (AUTO) 89.6 % (42.2-75.2); PLATELET COUNT (AUTO) 117 K/uL (140-450); RED BLOOD CELL COUNT(AUTO) 4.47 MIL/uL (4.20-6.10); RED CELL DISTRIBUTION WIDTH 13.5 % (11.6-13.7); WHITE BLOOD COUNT (AUTO) 17.7 K/uL (4.8-10.8)
[2020-01-02] MEDS: BLOOD GLUCOSE MONITORING 1 DEV DEV FS SCH ×4 (06:12→21:00)
[2020-01-02 06:46] LABS: ALBUMIN 2.2 g/dL (3.4-5.0); ANION GAP 11.5 (8-16); CARBON DIOXIDE 24.6 mmol/L (21-32); POTASSIUM 4.1 mmol/L (3.5-5.1); TOTAL BILIRUBIN 0.9 mg/dL (0.0-1.0)
--- NOTE | 2020-01-02 06:50 | NUR ---
BLOOD SUGAR 134 NO COVERAGE NEEDED. NO S/S OF DISTRESS. SAFETY MEASURES IN PLACE. WILL ENDORSE TO DAY RN. PT IS STABLE.
[2020-01-02] MEDS: BUDESONIDE 0.5 MG/2 ML NEBU INH SCH ×2 (07:15→21:19)
[2020-01-02 07:20] LABS: CREATININE 0.7 mg/dL (0.6-1.3)
--- NOTE | 2020-01-02 07:20 | NUR ---
RECEIVED REPORT FROM NIGHT NURSE. PT IN STABLE CONDITION, SLEEPING IN BED, NO DISTRESS NOTED. PT PRESENT SACRAL DTI AND R EAR WOUND. RESPIRATIONS EVEN AND UNLABORED ON O2 SL VIA NC, BREATH SOUNDS DIMINISHED. LAST BM ON GRANTS ASSISTANT 01/02. IV IN PLACE PATENT AND ASYMPTOMATIC INFUSING PER ORDER IN L FA 22G. SAFETY MEASURES IN PLACE. CALL LIGHT WITHIN REACH, BED IN LOW POSITION. WILL CONTINUE TO MONITOR.
[2020-01-02 07:35] LABS: MAGNESIUM 2.2 mg/dL (1.8-2.4)
[2020-01-02 08:00] VITALS: BP 110/66
[2020-01-02] MEDS: LORATADINE 10 MG TAB PO SCH (09:21)
[2020-01-02] MEDS: methylPREDNISolone SS 40 MG/ML VIAL IVP SCH ×2 (09:21→11:23)
[2020-01-02] MEDS: PANTOPRAZOLE 40 MG INJ VIAL IVP SCH ×2 (09:21→20:53)
[2020-01-02] MEDS: LACTOBACILLUS RHAMNOSUS GG 1 EACH CAP PO SCH (09:22)
[2020-01-02] MEDS: OLANZapine 2.5 MG TAB PO SCH ×2 (09:22→20:53)
[2020-01-02] MEDS: MONTELUKAST SODIUM 10 MG TAB PO SCH (09:22)
--- NOTE | 2020-01-02 09:24 | NUR ---
MEDICATIONS ADMINISTERED PER ORDER. PT TOLERATED WELL, NO DISTRESS NOTED. PT REFUSED PANTOPRAZOLE. WILL CONTINUE TO MONITOR.
--- NOTE | 2020-01-02 09:50 | NUR ---
SPOKE TO PT. AND EXPLAIN HIS SKIN CONDITIONS AND INTERVENTIONS, PT. STAY QUIET AND C/O DIZZINESS , CALL LIGHT PLACED AND REQUEST PRIMARY RN TO CHECK. PT NO SOB, NOT IN DISTRESS AT THIS TIME.
--- NOTE | 2020-01-02 10:37 | NUR ---
IV FLUIDS REDUCED TO 50ML/HR ORDERED BY DR ARANGO
[2020-01-02] MEDS: INSULIN LISPRO SLIDING SCALE 100 UNITS/ML VIAL SUBQ PRN (11:30)
[2020-01-02] MEDS ORDERED: MECLIZINE 25 MG TAB PO SCH (11:30)
--- NOTE | 2020-01-02 11:48 | NUR ---
PT TRANSFERRED TO RECLINING CHAIR TO ASSIST WITH MOBILITY. NO DISTRESS NOTED. PT TOLERATED WELL. WILL CONTINUE TO MONITOR.
[2020-01-02 12:00] VITALS: BP 115/64
[2020-01-02] MEDS ORDERED: BENZOCAINE/MENTHOL 1 LOZ MM SCH (12:00)
--- NOTE | 2020-01-02 13:12 | NUR ---
PT FAMILY MEMBER AT THE BEDSIDE BROUGHT PT FOOD. NO DISTRESS NOTED. SAFETY MEASURES IN PLACE. CALL LIGHT WITHIN REACH, WILL CONTINUE TO MONITOR.
--- NOTE | 2020-01-02 14:16 | NUR ---
01/02/20 RD FOLLOW UP COMPLETED PLEASE REFER TO NUTRITION ASSESSMENT UNDER CARE ACTIVITY FOR ESTIMATED NUTRITIONAL NEEDS. 1. CONTINUE CARDIAC, 60 GM CCHO, MECHANICAL SOFT GROUND DIET 2. CONTINUE GLUCERNA & DAISHA BID 3. PROVIDE FEEDING ASSISTANCE NEEDED 4. ENCOURAGE PO INTAKE 5. RD TO FOLLOW-UP 3-5 DAYS, MODERATE RISK KRYSTEN BOND, RD
--- NOTE | 2020-01-02 15:29 | NUR ---
PT WOUNDS CLEANSED AND DRESSING CHANGED NEEDED. PT DENIES PAIN. SAFETY MEASURES IN PLACE. CALL LIGHT WITHIN REACH. WILL CONTINUE TO MONITOR.
[2020-01-02 16:00] VITALS: BP 104/60
[2020-01-02] MEDS ORDERED: MECLIZINE 25 MG TAB PO PRN (16:00)
[2020-01-02] MEDS: ATORVASTATIN 20 MG TAB PO SCH (17:00)
--- NOTE | 2020-01-02 18:15 | NUR ---
PT REFUSED NGT INSERTION
--- NOTE | 2020-01-02 19:25 | NUR ---
REPORT GIVEN TO NIGHT NURSE FOR CONTINUITY OF CARE.
--- NOTE | 2020-01-02 19:26 | NUR ---
RECEIVED REPORT FROM DAY SHIFT NURSE. PT LYING IN BED, WATCHING TV. AAOX4. DENIES PAIN OR SOB. ON ROOM AIR. IV TO LEFT FA #22G, PATENT AND INTACT. SAFETY PRECAUTION IN PLACE, CALL LIGHT WITHIN REACH.
[2020-01-02 20:00] VITALS: BP 115/69
[2020-01-02] MEDS: LEVOFLOXACIN 750 MG/D5W PREMIX 150 ML IV SCH (20:39)
[2020-01-02] MEDS: guaiFENesin 600 MG TABER PO SCH (20:54)
--- NOTE | 2020-01-02 21:00 | NUR ---
PLATELET CT 117. PER DR. LEO MO TO GIVE HEPARIN. WILL HOLD HEPARIN IF PLT CT BELOW 50.
--- NOTE | 2020-01-02 21:15 | NUR ---
PT WAS CLEANSED AND REPOSITIONED. DENIES PAIN. PT HAS BRUISE ON THE RIGHT HIP. PT'S DAUGHTER AT BEDSIDE.
--- NOTE | 2020-01-02 23:00 | NUR ---
PT IN BED, SCREAMING, CONFUSED, SCRATCHING HIS ARMS AND LEGS. SAFETY PRECAUTION IN PLACE. Addendum: 01/02/20 at 2311 by [place] RN WRONG PT
--- NOTE | 2020-01-02 23:00 | NUR ---
PT'S AT BEDSIDE. ALL NEEDS ATTENDED AT THIS TIME. PT DENIES PAIN SOB.
[2020-01-03] MEDS: Z-GUARD PASTE TP SCH ×2 (00:43→13:39)
[2020-01-03] MEDS: HYDRAGUARD CREAM TP SCH ×2 (00:43→13:39)
[2020-01-03 00:49] VITALS: BP 103/60
--- NOTE | 2020-01-03 01:00 | NUR ---
NOTIFIED DR. BAILEY PT'S LEFT BUTTOCK HAS OPEN WOUND. PICTURE TAKEN.
[2020-01-03] MEDS: ALBUTEROL SULFATE/IPRATROPIU 3 ML SOL IH SCH ×6 (03:05→22:54)
--- NOTE | 2020-01-03 03:05 | NUR ---
PT DECLINED HHN TO SLEEP. ON ROOM AIR WITH NO SOB OR DISTRESS.
--- NOTE | 2020-01-03 03:30 | NUR ---
PT SLEEPING. NO S/S OF RESP DISTRESS. NO S/S OF PAIN. IVF INFUSING WELL. CALL LIGHT WITHIN REACH.
[2020-01-03 04:00] VITALS: BP 99/56
--- NOTE | 2020-01-03 06:30 | NUR ---
PT'S BLOOD SUGAR 115. PT DENIES PAIN OR SOB. ON ROOM AIR.
[2020-01-03] MEDS: DEXT 5% /NACL 0.9% 1,000 ML IV SCH (06:35)
[2020-01-03 07:10] LABS: BASOPHILS % (AUTO) 0.1 % (0.0-2.0); EOSINOPHILS # (AUTO) 0.2 K/uL (0-0.4); EOSINOPHILS % (AUTO) 0.8 % (0.0-4.0); HEMATOCRIT 38.5 % (36-52); HEMOGLOBIN 12.5 g/dL (12.0-18.0); LYMPHOCYTES # (AUTO) 1.3 K/uL (2.0-11.5); LYMPHOCYTES % (AUTO) 6.6 % (20.5-51.1); MEAN CORPUSCULAR HEMOGLOBIN 30 pg (27-31); MEAN CORPUSCULAR HGB CONC 33 g/dL (33-37); MEAN CORPUSCULAR VOLUME 92.9 fL (80-94); MONOCYTES # (AUTO) 1.2 K/uL (0.8-1.0); MONOCYTES % (AUTO) 6.3 % (1.7-9.3); NEUTROPHILS # (AUTO) 16.6 K/uL (1.8-7.7); NEUTROPHILS % (AUTO) 86.2 % (42.2-75.2); PLATELET COUNT (AUTO) 119 K/uL (140-450); RED BLOOD CELL COUNT(AUTO) 4.15 MIL/uL (4.20-6.10); RED CELL DISTRIBUTION WIDTH 13.1 % (11.6-13.7); WHITE BLOOD COUNT (AUTO) 19.3 K/uL (4.8-10.8)
--- NOTE | 2020-01-03 07:20 | NUR ---
ENDORSED PT TO DAY SHIFT NURSE. PT IN STABLE CONDITION.
--- NOTE | 2020-01-03 07:25 | NUR ---
RECEIVED REPORT FROM NIGHT NURSE. PT ASLEEP IN BED, IN STABLE CONDITION, NO DISTRESS NOTED. RESPIRATIONS EVEN AND UNLABORED ON ROOM AIR, CLEAR BREATH SOUNDS. IV IN PLACE L FA PATENT AND ASYMPTOMATIC SALINE LOCKED. SACRAL PRESSURE ULCER PRESENT, CLOSED WOUND ON LEFT EAR PRESENT AND ECCHYMOSIS ON THE RIGHT HIP. SAFETY MEASURES IN PLACE, CALL LIGHT WITHIN REACH, BED IN LOW POSITION. WILL CONTINUE TO MONITOR.
[2020-01-03] MEDS: BLOOD GLUCOSE MONITORING 1 DEV DEV FS SCH ×4 (07:40→20:26)
[2020-01-03 07:47] LABS: ANION GAP 10.1 (8-16); CARBON DIOXIDE 24.7 mmol/L (21-32); CREATININE 0.7 mg/dL (0.6-1.3); POTASSIUM 3.8 mmol/L (3.5-5.1)
--- NOTE | 2020-01-03 07:50 | NUR ---
AWAKE AND ALERT VERBALLY RESPONSIVE NO SOB NOTED PATIENT WITH BREAKFAST TRAY AT THIS TIME ARTIFICIAL FOLIAGE ARRANGER TO ATTEMPT HHN THERAPY AND RESPIRATORY DRUG AT A LATER TIME
[2020-01-03 08:00] VITALS: BP 116/70
[2020-01-03] MEDS: PANTOPRAZOLE 40 MG INJ VIAL IVP SCH ×2 (09:00→20:27)
--- NOTE | 2020-01-03 09:33 | NUR ---
ASLEEP EASILY AWAKENS PATIENT NO SOB NOTED REFUSES 0700 HHN THERAPY WITH [employer] ADVENTURE EDUCATION TEACHER TO RETAIN PULMICORT UD FOR 1100 THERAPY
--- NOTE | 2020-01-03 10:06 | NUR ---
MEDICATIONS ADMINISTERED PER ORDER. PT TOLERATED WELL, NO DISTRESS NOTED. PT REFUSED PANTOPRAZOLE. HEPARIN HELD DUE TO LOW PLATELETS. WILL CONTINUE TO MONITOR.
[2020-01-03] MEDS: OLANZapine 2.5 MG TAB PO SCH ×2 (10:10→20:27)
[2020-01-03] MEDS: MONTELUKAST SODIUM 10 MG TAB PO SCH (10:10)
[2020-01-03] MEDS: LORATADINE 10 MG TAB PO SCH (10:11)
[2020-01-03] MEDS: LACTOBACILLUS RHAMNOSUS GG 1 EACH CAP PO SCH (10:11)
[2020-01-03] MEDS: guaiFENesin 600 MG TABER PO SCH ×2 (10:11→20:27)
[2020-01-03] MEDS: methylPREDNISolone SS 40 MG/ML VIAL IVP SCH (10:12)
[2020-01-03] MEDS: BUDESONIDE 0.5 MG/2 ML NEBU INH SCH ×2 (11:04→19:30)
--- NOTE | 2020-01-03 11:04 | NUR ---
AWAKE AND ALERT NO PULMONARY DISTRESS NOTED PATIENT REFUSING EZPAP THERAPY AT THIS TIME MANUFACTURING TEST TECHNICIAN TO REINFORCE AT 1500 THERAPY
[2020-01-03 12:00] VITALS: BP 121/73
--- NOTE | 2020-01-03 12:31 | NUR ---
VITAL SIGNS TAKEN AT THIS TIME. PT IN STABLE CONDITION. NO DISTRESS NOTED, DENIES PAIN. RESPIRATIONS EVEN AND UNLABORED. SAFETY MEASURES IN PLACE. WILL CONTINUE TO MONITOR.
--- NOTE | 2020-01-03 14:12 | NUR ---
PTS DAUGHTER AT THE BEDSIDE USING A LAPTOP WITH PT. NO DISTRESS NOTED. DENIES PAIN. WILL CONTINUE TO MONITOR.
--- NOTE | 2020-01-03 15:20 | NUR ---
DRESSING CHANGE PERFORMED ON PT SACRAL WOUNDS. CLEANSED, Z GUARD APPLIED AND COVERED WITH LARGE OPTIFOAM. PT TOLERATED WELL, DENIES PAIN ASSOCIATED TO WOUND. SAFETY MEASURES IN PLACE. WILL CONTINUE TO MONITOR.
[2020-01-03 16:00] VITALS: BP 97/52
[2020-01-03] MEDS: ATORVASTATIN 20 MG TAB PO SCH (16:06)
--- NOTE | 2020-01-03 17:42 | NUR ---
PT IN BED SLEEPING, NO DISTRESS NOTED. RESPIRATIONS EVEN AND UNLABORED ON ROOM AIR. SAFETY MEASURES IN PLACE. WILL CONTINUE TO MONITOR.
--- NOTE | 2020-01-03 19:10 | NUR ---
REPORT GIVEN TO NIGHT NURSE FOR CONTINUITY OF CARE.
--- NOTE | 2020-01-03 19:11 | NUR ---
RECEIVED BEDSIDE REPORT FROM DAY SHIFT NURSE OCTAVIO RN, PT STABLE, NO DISTRESS NOTED, IV TO L FA 22G PATENT INTACT, INFUSING WELL, PT ON ROOM AIR, NO SOB NOTED, DRESSINGS INTACT, NO C/O PAIN, INITIAL ASSESSMENT DONE, ALL SAFETY PRECAUTION MET, CALL LIGHT WITHIN REACH, WILL CONTINUE TO MONITOR.
--- NOTE | 2020-01-03 19:42 | NUR ---
WALKED INTO MR. KAMINSKI ROOM TO GIVE SCHEDULED BREATHING TX. PT REFUSE TX AND SAID HE DID NOT WANT TX. PT IS SAT WELL. WILL CHECK UP ON PT
[2020-01-03 20:00] VITALS: BP 107/57
[2020-01-03] MEDS: LEVOFLOXACIN 750 MG/D5W PREMIX 150 ML IV SCH (20:28)
--- NOTE | 2020-01-03 20:41 | NUR ---
DUE MEDICATION ADMINISTERED, PT TOLERATED WELL, NO DISTRESS NOTED, CALL LIGHT WITHIN REACH, WILL CONTINUE TO MONITOR.
--- NOTE | 2020-01-03 23:44 | NUR ---
CHECKED ON PT, PT RESTING, NO DISTRESS NOTED, V/S TAKEN, PT RESTING, CALL LIGHT WITHIN REACH, WILL CONTINUE TO MONITOR.
[2020-01-04] VITALS: BP 113/61
--- NOTE | 2020-01-04 00:41 | NUR ---
WOUND DRESSING CHANGED, PT TOLERATED WELL, NO DISTRESS NOTED, CALL LIGHT WITHIN REACH, WILL CONTINUE TO MONITOR.
[2020-01-04] MEDS: Z-GUARD PASTE TP SCH ×2 (00:56→13:45)
[2020-01-04] MEDS: HYDRAGUARD CREAM TP SCH ×2 (00:56→13:30)
[2020-01-04] MEDS: DEXT 5% /NACL 0.9% 1,000 ML IV SCH ×2 (02:35→19:38)
[2020-01-04] MEDS: ALBUTEROL SULFATE/IPRATROPIU 3 ML SOL IH SCH ×6 (03:00→23:36)
--- NOTE | 2020-01-04 03:03 | NUR ---
PT REFUSED SCHEDULED BREATHING TX. PT APPEARS IN NO DISTRESS. WILL CONT TO MONITOR
[2020-01-04 04:00] VITALS: BP 96/49
--- NOTE | 2020-01-04 04:10 | NUR ---
CHECKED ON PT, PT SLEEPING, NO DISTRESS NOTED, CALL LIGHT WITHIN REACH, WILL CONTINUE TO MONITOR.
[2020-01-04] MEDS: BLOOD GLUCOSE MONITORING 1 DEV DEV FS SCH ×4 (05:51→21:46)
--- NOTE | 2020-01-04 07:21 | NUR ---
ENDORSED TO DAY SHIFT NURSE [place] RN, PT STABLE, NO DISTRESS NOTED, CALL LIGHT WITHIN REACH.
--- NOTE | 2020-01-04 07:22 | NUR ---
RECEIVED BEDSIDE REPORT FROM DATA TECHNICAL LEAD NURSE ISAURO, FOR CONTINUITY OF CARE, PT STABLE, NO DISTRESS OR SOB NOTED, RESPIRATIONS EVEN AND UNLABORED ON ROOM AIR. IV TO L FA 22G PATENT INTACT, INFUSING IVF WELL, DRESSINGS INTACT, NO C/O PAIN, UPDATED BOARD. SAFETY PRECAUTIONS IN PLACE, CALL LIGHT WITHIN REACH, WILL CONTINUE TO MONITOR.
[2020-01-04] MEDS: BUDESONIDE 0.5 MG/2 ML NEBU INH SCH ×2 (07:26→19:27)
[2020-01-04 08:00] VITALS: BP 101/57
--- NOTE | 2020-01-04 08:10 | NUR ---
INFORMED PATIENT ABOUT DR RICHARD'S ORDERS TO START AMBULATING. PATIENT AND AT BEDSIDE AGREEABLE. PATIENT ATTEMPTED TO FIRST SIT IN CHAIR BY SIDE OF BED. PATIENT DEMONSTRATING BLE WEAKNESS, UNABLE. PATIENT AGREEABLE TO ATTEMPT AGAIN AT A LATER TIME. PATIENT SETTLED BACK COMFORTABLY IN BED, CALL LIGHT WITHIN REACH, WILL CONTINUE TO MONITOR PATIENT.
[2020-01-04] MEDS: LORATADINE 10 MG TAB PO SCH (08:46)
[2020-01-04] MEDS: LACTOBACILLUS RHAMNOSUS GG 1 EACH CAP PO SCH (08:46)
[2020-01-04] MEDS: MONTELUKAST SODIUM 10 MG TAB PO SCH (08:47)
[2020-01-04] MEDS: guaiFENesin 600 MG TABER PO SCH ×2 (08:47→21:26)
--- NOTE | 2020-01-04 08:47 | NUR ---
DR RICHARD IN TO SEE THE PATIENT.
[2020-01-04] MEDS: OLANZapine 2.5 MG TAB PO SCH ×2 (08:48→21:26)
[2020-01-04] MEDS: PANTOPRAZOLE 40 MG INJ VIAL IVP SCH ×2 (08:50→21:26)
--- NOTE | 2020-01-04 09:05 | NUR ---
ORDERED MEDICATIONS GIVEN. PATIENT TOLERATED THEM WELL. AT BEDSIDE. PATIENT'S BED LINENS AND GOWN CHANGED. PATIENT TOLERATED IT WELL. PATIENT NOW RESTING IN BED, RESTING WITH EYES CLOSED, NO COMPLAINTS AT THIS TIME. SAFETY PRECAUTIONS IN PLACE, CALL LIGHT WITHIN REACH, WILL CONTINUE TO MONITOR PATIENT.
[2020-01-04 09:42] LABS: BASOPHILS # (AUTO) 0.1 K/uL (0.00-0.22); BASOPHILS % (AUTO) 0.3 % (0.0-2.0); EOSINOPHILS # (AUTO) 0.2 K/uL (0-0.4); EOSINOPHILS % (AUTO) 0.9 % (0.0-4.0); HEMATOCRIT 37.5 % (36-52); HEMOGLOBIN 12.3 g/dL (12.0-18.0); LYMPHOCYTES % (AUTO) 4.9 % (20.5-51.1); MEAN CORPUSCULAR HEMOGLOBIN 30 pg (27-31); MEAN CORPUSCULAR HGB CONC 33 g/dL (33-37); MEAN CORPUSCULAR VOLUME 92.4 fL (80-94); MONOCYTES # (AUTO) 1.2 K/uL (0.8-1.0); NEUTROPHILS # (AUTO) 17.4 K/uL (1.8-7.7); NEUTROPHILS % (AUTO) 87.9 % (42.2-75.2); PLATELET COUNT (AUTO) 114 K/uL (140-450); RED BLOOD CELL COUNT(AUTO) 4.06 MIL/uL (4.20-6.10); RED CELL DISTRIBUTION WIDTH 13.3 % (11.6-13.7); WHITE BLOOD COUNT (AUTO) 19.8 K/uL (4.8-10.8)
[2020-01-04 09:56] LABS: POTASSIUM 3.5 mmol/L (3.5-5.1)
[2020-01-04 09:57] LABS: ANION GAP 9.2 (8-16); CARBON DIOXIDE 26.3 mmol/L (21-32); CREATININE 0.9 mg/dL (0.6-1.3); PHOSPHORUS 3.3 mg/dL (2.5-4.9)
--- NOTE | 2020-01-04 11:15 | NUR ---
PATIENT SLEEPING COMFORTABLY IN BED, NO S/S OF SOB OR DISTRESS NOTED. CALL LIGHT WITHIN REACH, WILL CONTINUE TO MONITOR PATIENT.
[2020-01-04 12:00] VITALS: BP 95/56
--- NOTE | 2020-01-04 12:41 | NUR ---
BLOOD SUGAR 147, NO COVERAGE NEEDED. DAUGHTER AT BEDSIDE. PATIENT HAS NO COMPLAINTS AT THIS TIME. WILL CONTINUE TO MONITOR PATIENT.
--- NOTE | 2020-01-04 13:50 | NUR ---
WOUND CARE GIVEN ORDERED. PATIENT TOLERATED IT. PATIENT REQUESTED TO GO TO BATHROOM. PATIENT ATTEMPTED TO SIT UP ON SIDE OF BED. PATIENT STILL WEAK. PATIENT NOW BACK IN BED, WILL ATTEMPT TO SIT ON CHAIR AGAIN. PATIENT AGREEABLE TO PLAN. SAFETY PRECAUTION IN PLACE, CALL LIGHT WITHIN REACH, WILL CONTINUE TO MONITOR PATIENT.
[2020-01-04 16:00] VITALS: BP 107/58
--- NOTE | 2020-01-04 17:35 | NUR ---
IV SITE LEAKING, IV REMOVED, IV CANNULA INTACT, MINIMAL BLEEDING NOTED. NEW IV INSERTED ON RT WRIST 22G, PATENT, INTACT, INFUSING IVF WELL. PATIENT TOLERATED IT, WILL CONTINUE TO MONITOR PATIENT.
[2020-01-04] MEDS: BENZOCAINE/MENTHOL 1 LOZ MM PRN ×2 (17:41→21:27)
[2020-01-04] MEDS: ATORVASTATIN 20 MG TAB PO SCH (17:41)
--- NOTE | 2020-01-04 17:41 | NUR ---
PATIENT C/O OF SORE THROAT, PRN CEPHACOL GIVEN. ORDERED MEDICATION GIVEN. PATIENT TOLERATED IT WELL. PATIENT HAS NO COMPLAINTS AT THIS TIME. SAFETY PRECAUTIONS IN PLACE, CALL LIGHT WITHIN REACH, WILL CONTINUE TO MONITOR PATIENT.
--- NOTE | 2020-01-04 19:25 | NUR ---
REPORT GIVEN TO SOCIAL WORKER ASSISTANT NURSE AT BEDSIDE FOR CONTINUITY OF CARE. PATIENT IN STABLE CONDITION.
--- NOTE | 2020-01-04 19:26 | NUR ---
RECEIVED BEDSIDE REPORT FROM AM SHIFT NURSE NAVEED, FOR CONTINUITY OF CARE, PT STABLE, NO DISTRESS OR SOB NOTED, RESPIRATIONS EVEN AND UNLABORED 2 LPM O2 CANNULA PRN.SAT 97% IV ON R WRIST G 22 PATENT INTACT, INFUSING IVF WELL, DRESSINGS INTACT, NO C/O PAIN, UPDATED BOARD. SAFETY PRECAUTIONS IN PLACE, CALL LIGHT WITHIN REACH, WILL CONTINUE TO MONITOR.
[2020-01-04] MEDS: LEVOFLOXACIN 750 MG/D5W PREMIX 150 ML IV SCH (19:32)
--- NOTE | 2020-01-04 19:42 | NUR ---
RECEIVED PT ON 2L NC WITH AN SP02 OF 95% AND A COARSE BREATH SOUNDS ON UPPER LOBES. NO RESPIRATORY DISTRESS NOTED AT THIS TIME. HHN TX GIVEN VIA EzPAP ORDERED WITH NO ADVERSE REACTION. WILL CONITINUE TO MONITOR PT.
--- NOTE | 2020-01-04 19:43 | NUR ---
PT'S WITH RT ON BEDSIDE, PATIENT TOLERATING BREATHING TX WELL. W/ CREAMY PHLEGM NOTED, PRODUCTIVE COUGH
--- NOTE | 2020-01-04 22:30 | NUR ---
CLEANED AND TURNED PATIENT TO SIDE, PT TOLERATED PROCEDURE. DRESSSING STILL IN PLACE
[2020-01-04 23:32] VITALS: BP 108/52
[2020-01-05] MEDS: HYDRAGUARD CREAM TP SCH ×2 (01:19→13:00)
[2020-01-05] MEDS: Z-GUARD PASTE TP SCH ×2 (01:20→13:00)
--- NOTE | 2020-01-05 01:20 | NUR ---
PT CLEANED AND TURNED,PLACED Z GUARD ON THE WOUND,DRESSING CHANGED, HYDRAGUARD ON PERINEAL AREA
--- NOTE | 2020-01-05 02:02 | NUR ---
CHECKED ON PT, SLEEPING, NO SOB, NO COMPLAINTS AT THIS TIME
[2020-01-05] MEDS: ALBUTEROL SULFATE/IPRATROPIU 3 ML SOL IH SCH ×6 (02:50→23:00)
--- NOTE | 2020-01-05 04:18 | NUR ---
PT CLEANED, AND TURNED, NO SOB, PT STABLE AT THIS TIME
[2020-01-05] MEDS: BENZOCAINE/MENTHOL 1 LOZ MM PRN (05:04)
--- NOTE | 2020-01-05 06:16 | NUR ---
PT TURNED AND CLEANED, W/ MINIMAL ASSIST, PT CAN TURN HIMSELF
--- NOTE | 2020-01-05 06:17 | NUR ---
PT IN STABLE CONDITION AT THIS TIME TIME, NO RESPIRATORY DISTRESS. PT AWAKE,ALERT ORIENTED X 4. WILL ENDORSE TO NEXT SHIFT.
[2020-01-05 06:24] LABS: BASOPHILS % (AUTO) 0.1 % (0.0-2.0); EOSINOPHILS # (AUTO) 0.2 K/uL (0-0.4); EOSINOPHILS % (AUTO) 0.7 % (0.0-4.0); HEMATOCRIT 36.2 % (36-52); LYMPHOCYTES # (AUTO) 0.9 K/uL (2.0-11.5); LYMPHOCYTES % (AUTO) 3.7 % (20.5-51.1); MEAN CORPUSCULAR HEMOGLOBIN 31 pg (27-31); MEAN CORPUSCULAR HGB CONC 33 g/dL (33-37); MEAN CORPUSCULAR VOLUME 92.3 fL (80-94); MONOCYTES # (AUTO) 1.3 K/uL (0.8-1.0); MONOCYTES % (AUTO) 5.5 % (1.7-9.3); NEUTROPHILS # (AUTO) 21.7 K/uL (1.8-7.7); PLATELET COUNT (AUTO) 116 K/uL (140-450); RED BLOOD CELL COUNT(AUTO) 3.92 MIL/uL (4.20-6.10); RED CELL DISTRIBUTION WIDTH 13.2 % (11.6-13.7); WHITE BLOOD COUNT (AUTO) 24.1 K/uL (4.8-10.8)
[2020-01-05 06:45] LABS: ANION GAP 11.5 (8-16); CARBON DIOXIDE 25.3 mmol/L (21-32); CREATININE 0.8 mg/dL (0.6-1.3); POTASSIUM 3.8 mmol/L (3.5-5.1)
[2020-01-05 06:54] LABS: MAGNESIUM 1.9 mg/dL (1.8-2.4); PHOSPHORUS 2.6 mg/dL (2.5-4.9)
--- NOTE | 2020-01-05 07:25 | NUR ---
RECEIVED PT FROM [facility] NURSEAXEL, PT IS AWAKE AND LYING ON THE WOUND BED, SAFETY PRECAUTION ENFORCED, IV LINE ON THE RT WRIST G. 22 WITH NS INFUSING AT 50ML/HR, INTACT, PT IS ON 2L O2 NC, SCD IN PLACE. NO SIGNS OF DISTRESS NOTED. WILL CONTINUE TO MONITOR.
[2020-01-05] MEDS: BUDESONIDE 0.5 MG/2 ML NEBU INH SCH ×2 (07:30→19:25)
[2020-01-05] MEDS: BLOOD GLUCOSE MONITORING 1 DEV DEV FS SCH ×4 (07:36→21:15)
--- NOTE | 2020-01-05 07:59 | NUR ---
AWAKE AND ALERT NO SOB NOTED PATIENT WITH BREAKFAST TRAY AT THIS TIME DATA ABSTRACTOR TO ATTEMPT HHN THERAPY AND RESPIRATORY DRUG AT A LATER TIME
[2020-01-05 08:00] VITALS: BP 93/51
[2020-01-05] MEDS: PANTOPRAZOLE 40 MG INJ VIAL IVP SCH ×2 (08:32→20:26)
[2020-01-05] MEDS: LACTOBACILLUS RHAMNOSUS GG 1 EACH CAP PO SCH (08:33)
[2020-01-05] MEDS: guaiFENesin 600 MG TABER PO SCH ×2 (08:36→21:06)
[2020-01-05] MEDS: LORATADINE 10 MG TAB PO SCH (08:36)
[2020-01-05] MEDS: OLANZapine 2.5 MG TAB PO SCH ×2 (08:37→21:06)
[2020-01-05] MEDS: MONTELUKAST SODIUM 10 MG TAB PO SCH (08:37)
--- NOTE | 2020-01-05 08:37 | NUR ---
PT JUST FINISHED EATING 90% OF HIS BREAKFAST, SCHEDULED MA MEDICATIONS WERE GIVEN TO PT AND TOLERATED IT, PT REFUSED TO RECEIVED THE HEPARIN SUBQ, NO SIGN OF DISTRESS NOTED AND WILL CONTINUE TO BE MONITORED.
--- NOTE | 2020-01-05 11:40 | NUR ---
SHOW HORSE DRIVER AND WOUND CARE NURSE AT [facility] NO SOB NOTED CONCRETE TESTER TO ATTEMPT HHN THERAPY AND RESPIRATORY DRUG AT A LATER TIME
--- NOTE | 2020-01-05 11:50 | NUR ---
BLUE PHONE ASSISTANT FACILITY MANAGER PROVIDE WITH MR. GALVAN # [id number]. EXPLAIN TO PT. HOW PRESSURE ULCER HAPPENED AND ALL INTERVENTIONS FOR WOUND HEALING AND PREVENTING FURTHER SKIN BREAKS DURING HOSPITALIZATIONS, PT. VERBALIZES UNDERSTANDING. WOUND CARE TEACHING FOR DISCHARGE INSTRUCTIONS, ALSO, INSTRUCT PT TO INCREASE PHYSICAL MOBILITY, INCLUDING TURNING, SHIFTING WEIGHT WHILE IN BED REST AND DIET RICH IN PROTEIN INTAKE TO PROMOTE WOUND HEALING. PT VERBALIZES UNDERSTANDING. INTEGUMENTARY: -LEFT EAR DTI 1X0.5CM BLANCHABLE REDNESS -SACRALCOCCYX DTI WITH SKIN INTACT, PREVIOUS BLISTERS REABSORB BACK TO SKIN SYSTEM. 2X2CM WITH SURROUNDING REDNESS TISSUE EXTENDED TO RIGHT AND LEFT BUTTOCK -PRESSURE ULCER TO LEFT BUTTOCK PREVIOUS DTI TODAY IS A STAGE 2, 5X4CM SUPERFICIAL DEPTH, WOUND BED 100% PINK,CRIS WOUND TOWARD 10 O'CLOCK DIRECTION 1X1CM SUPERFICIAL DEPTH, PREVIOUS DTI TODAY IS STAGE 2, WOUND BED 100% PINK MOIST, CRIS WOUND SKIN INTACT -RIGHT BUTTOCK STAGE 2 PRESSURE ULCER 1.5X2.5 CM WITH SUPERFICIAL DEPTH, WOUND BED 100% RED, MOIST, NO ODOR, CRIS WOUND SKIN INTACT NO ERYTHEMA -RIGHT WRIST MULTIPLE PIN POINTS CLEAR FLUIDS BLISTERS RESOLVED RECOMMENDATION: -CLEANSE LEFT EAR WITH NS, PAT DRY APPLY HYDRAGUARD TO LEFT EAR BID RASHI, OFFLOADING LEFT EAR -LEFT AND RIGHT BUTTOCKS AND SACRALCOCCYX CLEANSE WITH NS. PAT DRY, APPLY OPTIFOAM, MONITOR PLACEMENT QD AND CHANGE PRN IF SOILING, OFFLOADING AREA -RIGHT AND LEFT BUTTOCKS CLEANSE WITH NS. PAT DRY, APPLY Z- GUARD AND OPTIFOAM, MONITOR PLACEMENT QD AND CHANGE PRN IF SOILING, OFFLOADING AREA -APPLY SKIN PREP TO RIGHT WRIST BID AND MANAGER R D -TURN AND REPOSITION Q2H, OFFLOADING SACRALCOCCYX, BUTTOCKS AND LEFT EAR -OFFLOADING BILATERAL HEELS -PRESSURE REDISTRIBUTION SURFACE -RD CONSULT AND FOLLOW RECOMMENDATIONS
--- NOTE | 2020-01-05 12:16 | NUR ---
PER PT. HE IS PLEASE THE BUTTOCKS WOUNDS ARE HEALING AND HE FEELS BETTER, WILL TRY TO AMBULATE WHEN HE REGAIN HIS STRENGTH.
[2020-01-05 16:00] VITALS: BP 98/56
--- NOTE | 2020-01-05 16:03 | NUR ---
DURING AND POST HHN THERAPY PRODUCTIVE COUGH COPIOUS CLEAR /FROTHY SECRETIONS
[2020-01-05] MEDS: ATORVASTATIN 20 MG TAB PO SCH (16:41)
--- NOTE | 2020-01-05 16:41 | NUR ---
SCHEDULED MEDICATION GIVEN TO PT. NO SIGNS OF DISTRESS NOTED. WILL CONTINUE TO MONITOR.
--- NOTE | 2020-01-05 17:30 | NUR ---
RECEIVED PATIENT FROM DAYNA MCMULLEN FOR CONTINUITY OF CARE
--- NOTE | 2020-01-05 17:30 | NUR ---
ENDORSED PT TO AM NURSE FOR CONTINUITY OF CARE.
--- NOTE | 2020-01-05 17:46 | NUR ---
MADE AWARE THAT THE PATIENT'S LAST BM WAS [address] ADAM. WILL PUT IN ORDER
[2020-01-05] MEDS ORDERED: BISACODYL 10 MG SUPP RC SCH (18:00)
--- NOTE | 2020-01-05 18:24 | NUR ---
PATIENT IS EATING DINNER AT THIS TIME. NO SIGNS OF DISTRESS NOTED. BED IN LOW POSITION. CALL LIGHT IS WITHIN REACH.
[2020-01-05] MEDS: DEXT 5% /NACL 0.9% 1,000 ML IV SCH (18:35)
--- NOTE | 2020-01-05 18:40 | NUR ---
GIVEN BISACODYL SUPPOSITORY. PATIENT TOLERATED WELL. EXPLAINED TO PATIENT MED AND SIDE EFFECTS. PATIENT VERBALIZED UNDERSTANDING. BED IN LOW POSITION. CALL LIGHT IS WITHIN REACH.
--- NOTE | 2020-01-05 19:10 | NUR ---
ENDORSED PATIENT TO GATEHOUSE ATTENDANT NURSE FOR CONTINUITY OF CARE. PATIENT IS IN STABLE CONDITION.
--- NOTE | 2020-01-05 19:11 | NUR ---
RECD. RESTING IN BED, AWAKE, A/OX4. RESPIRATION EVEN AND UNLABORED. DIMINISHED LUNG SOUNDS ON BILATERAL AUSCULTATION. IV OF D5NS AT 50 ML/HR INFUSING, LEFT FOREARM G22. PLAN OF CARE DISCUSSED. VERBALIZED UNDERSTANDING. DENIES PAIN 0/10.
--- NOTE | 2020-01-05 19:31 | NUR ---
RECEIVED PT ON ROOM AIR WITH AN SP02 OF 94% AND A COARSE BREATH SOUNDS ON UPPER LOBES. NO APPARENT RESPIRATORY DISTRESS NOTED AT THIS TIME. HHN TX GIVEN VIA EzPAP ORDERED WITH NO ADVERSE REACTION. WILL CONTINUE TO MONITOR PT.
[2020-01-05] MEDS: LEVOFLOXACIN 750 MG/D5W PREMIX 150 ML IV SCH ×2 (19:42→19:45)
--- NOTE | 2020-01-05 19:44 | NUR ---
Patient's Plan of Care was discussed and reviewed with KIRIT: WENDY
--- NOTE | 2020-01-05 19:45 | NUR ---
LEVAQUIN WAS DAMAGED, LEAKING. PULLED ANOTHER LEVAQUIN AND DISCARD DAMAGED ONE. WITNESS OF CHARGE NURSE, LATRELL. ADMINISTERED. PT TOLERATED WELL.
[2020-01-05] MEDS: DOCUSATE SODIUM 100 MG GELCAP PO SCH (21:05)
--- NOTE | 2020-01-05 21:05 | NUR ---
DUE PO MEDICATIONS GIVEN. COMPLAINT OF UNABLE TO TOTALLY EVACUATE HIS BM, ONLY HAD ONLY SMALL BMs, WILL INFORMED .
[2020-01-05] MEDS: INSULIN LISPRO SLIDING SCALE 100 UNITS/ML VIAL SUBQ PRN (21:19)
[2020-01-05] MEDS ORDERED: MAGNESIUM CITRATE 300 ML BTL PO SCH (22:00)
--- NOTE | 2020-01-05 22:01 | NUR ---
MEDICATED WITH CITROMA PER MD ORDER. AT THE BEDSIDE. EXPLAINED TO PATIENT AND HOW TO TAKE MEDICATION AND IT'S EFFECTS. VERBALIZED UNDERSTANDING.
--- NOTE | 2020-01-05 23:41 | NUR ---
PT REFUSED HHN TX AT THIS TIME. NO RESPIRATORY DISTRESS NOTED. WILL CONTINUE TO MONITOR PT.
[2020-01-06] VITALS: BP 95/48
[2020-01-06] MEDS: Z-GUARD PASTE TP SCH ×2 (01:00→14:18)
[2020-01-06] MEDS: HYDRAGUARD CREAM TP SCH ×2 (01:00→14:19)
--- NOTE | 2020-01-06 01:24 | NUR ---
HAD SOFT MODERATE BM FOR THE THIRD TIME, CLEANSED AND MADE COMFORTABLE IN BED WITH PILLOWS.
[2020-01-06] MEDS: ALBUTEROL SULFATE/IPRATROPIU 3 ML SOL IH SCH ×5 (03:00→19:00)
--- NOTE | 2020-01-06 03:00 | NUR ---
HAD AN EXTRA LARGE SOFT BM. CLEANSED AND MADE COMFORTABLE IN BED WITH PILLOWS.
--- NOTE | 2020-01-06 03:30 | NUR ---
NEW URINAL GIVEN TO PATIENT, INSTRUCTED TO COLLECT URINE FOR LAB TEST.
--- NOTE | 2020-01-06 05:00 | NUR ---
HAD ANOTHER MEDIUM SOFT BM. CLEANSED AND REPOSITIONED IN BED FOR COMFORT.
--- NOTE | 2020-01-06 05:45 | NUR ---
UA COLLECTED USING NEW URINAL, FOR URINALYSIS AND C/S. SENT TO LAB.
[2020-01-06 06:05] LABS: APPEARANCE,URINE CLEAR (CLEAR); BILIRUBIN,URINE NEGATIVE (NEGATIVE); BLOOD, URINE TRACE-I (NEGATIVE); COLOR,URINE YELLOW (YELLOW); LEUKOCYTE ESTERASE ,URINE NEGATIVE (NEGATIVE); NITRITE, URINE NEGATIVE (NEGATIVE); PH,URINE 5.5 (5.0-9.0); UGLUCOSE NEGATIVE (NEGATIVE)
--- NOTE | 2020-01-06 07:15 | NUR ---
RECEIVED FROM DOOR BUILDER NURSEWENDY, PT IS AWAKE AND LYING ON THE BED WITH SIDE RAISL UP AND CALL LIGHT WITHIN REACH, SACRAL PRESSURE ULCER NOTED AND REINFORCED WITH DRESSING, DTI ON EAR WAS NOTED WELL, PT IS ON O2 2L NC, NO SIGN OF DISTRESS NOTED AND WILL MONITOR PT.
[2020-01-06] MEDS: BLOOD GLUCOSE MONITORING 1 DEV DEV FS SCH ×3 (07:30→17:26)
[2020-01-06] MEDS: BUDESONIDE 0.5 MG/2 ML NEBU INH SCH ×2 (07:51→19:30)
[2020-01-06 08:00] VITALS: BP 97/59
[2020-01-06] MEDS: DOCUSATE SODIUM 100 MG GELCAP PO SCH (10:02)
[2020-01-06] MEDS: MONTELUKAST SODIUM 10 MG TAB PO SCH (10:02)
[2020-01-06] MEDS: guaiFENesin 600 MG TABER PO SCH (10:02)
[2020-01-06] MEDS: OLANZapine 2.5 MG TAB PO SCH (10:02)
--- NOTE | 2020-01-06 10:02 | NUR ---
PT WAS GIVEN THE SCHEDULED AM MEDICATIONS NOW. WILL MONITOR PT.
[2020-01-06 10:40] LABS: RBC,URINE 0-5 /HPF (0-5); WBC,URINE 0-5 /HPF (0-5)
[2020-01-06 10:53] LABS: ANION GAP 11.6 (8-16); BASOPHILS % (AUTO) 0.1 % (0.0-2.0); CARBON DIOXIDE 23.7 mmol/L (21-32); CREATININE 0.6 mg/dL (0.6-1.3); EOSINOPHILS # (AUTO) 0.2 K/uL (0-0.4); EOSINOPHILS % (AUTO) 1.3 % (0.0-4.0); HEMOGLOBIN 11.2 g/dL (12.0-18.0); LYMPHOCYTES # (AUTO) 0.7 K/uL (2.0-11.5); LYMPHOCYTES % (AUTO) 4.4 % (20.5-51.1); MEAN CORPUSCULAR HEMOGLOBIN 31 pg (27-31); MEAN CORPUSCULAR HGB CONC 33 g/dL (33-37); MEAN CORPUSCULAR VOLUME 92.7 fL (80-94); MONOCYTES # (AUTO) 1.1 K/uL (0.8-1.0); MONOCYTES % (AUTO) 6.9 % (1.7-9.3); NEUTROPHILS # (AUTO) 14.1 K/uL (1.8-7.7); NEUTROPHILS % (AUTO) 87.3 % (42.2-75.2); PLATELET COUNT (AUTO) 117 K/uL (140-450); POTASSIUM 3.3 mmol/L (3.5-5.1); RED BLOOD CELL COUNT(AUTO) 3.67 MIL/uL (4.20-6.10); RED CELL DISTRIBUTION WIDTH 13.3 % (11.6-13.7); WHITE BLOOD COUNT (AUTO) 16.1 K/uL (4.8-10.8)
[2020-01-06] MEDS: LORATADINE 10 MG TAB PO SCH (11:10)
[2020-01-06] MEDS: PANTOPRAZOLE 40 MG INJ VIAL IVP SCH (11:10)
--- NOTE | 2020-01-06 11:10 | NUR ---
MEDICATION IV PUSH AN DORAL WAS GIVEN TO PT NOW.
[2020-01-06] MEDS: LACTOBACILLUS RHAMNOSUS GG 1 EACH CAP PO SCH (11:11)
[2020-01-06] MEDS: INSULIN LISPRO SLIDING SCALE 100 UNITS/ML VIAL SUBQ PRN (11:29)
[2020-01-06] MEDS ORDERED: POTASSIUM CHLORIDE 10 MEQ TABER PO SCH (13:24)
[2020-01-06] MEDS ORDERED: ATOR20TA40 PO (13:57)
[2020-01-06] MEDS ORDERED: LORA10TA19 PO (13:57)
[2020-01-06] MEDS ORDERED: ALBU0.0912 IH (13:57)
[2020-01-06] MEDS ORDERED: MONT10TA35 PO (13:57)
[2020-01-06] MEDS ORDERED: BENZ1LOZ93 MM (13:57)
[2020-01-06] MEDS ORDERED: MECL-272 PO (13:57)
[2020-01-06] MEDS ORDERED: PUL.5N INH (13:57)
[2020-01-06] MEDS ORDERED: GUAI-791 PO (13:57)
--- NOTE | 2020-01-06 14:18 | NUR ---
PT WAS BGIVEN POTASSIUM ORAL TABLETS, 40MEQ FOR K LEVEL OF 3.3.
[2020-01-06] MEDS: DEXT 5% /NACL 0.9% 1,000 ML IV SCH (14:35)
[2020-01-06 16:00] VITALS: BP 106/62
[2020-01-06] MEDS ORDERED: LEVOFLOXACIN 750 MG/D5W PREMIX 150 ML IV SCH (17:00)
--- NOTE | 2020-01-06 17:26 | NUR ---
BLOOD GLUCOSE CHECK DONE AND RESULT IS 128 AND NO INSULIN COVERAGE NEEDED. WILL MONITOR PT
[2020-01-06] MEDS: ATORVASTATIN 20 MG TAB PO SCH (17:35)
--- NOTE | 2020-01-06 17:55 | NUR ---
WOUND ASSESSMENT DONE AND PICTURES WAS TAKEN AND ATTACHED TO CHART.
--- NOTE | 2020-01-06 19:30 | NUR ---
DISCHARGED PT TO HOME WITH HOME HEALTH FOR PT, DISCHARGED INSTRUCTIONS GIVEN TO PT AND FAMILY AND VERBALIZED UNDERSTANDING, IV LINE AND ARM BAND REMOVED AND PT IS STABLE AT THIS TIME. PT AND FAMILY WAS INFORMED THAT HOME HEALTH WILL BE CALLING THEM PER CASE MANAGEMENT. DISCHARGED TEACHINGS REGARDING WOUND CARE AND CLAENSING AND SUPPLIES WERE GIVEN TO PT.
[2020-01-07] MEDS ORDERED: BENZ1LOZ74 MM (20:22)
[2020-01-07] MEDS ORDERED: MECL-272 PO (20:22)
[2020-01-07] MEDS ORDERED: GUAI-646 PO (20:22)
[2020-01-07] MEDS ORDERED: MONT10TA35 PO (20:22)
[2020-01-07] MEDS ORDERED: ALBU0.0912 IH (20:22)
[2020-01-07] MEDS ORDERED: LORA10TA19 PO (20:22)
[2020-01-07] MEDS ORDERED: PUL.5N INH (20:22)
[2020-01-07] MEDS ORDERED: ATOR10TA PO (20:22)
[2020-01-07] MEDS ORDERED: BUDE180P IH (20:22)
== END 2020-01-06 19:30 | disposition home or self-care (01) | DRG 130 ==
LOC: MED 08:45 → MTU 10:44 → MIC 11:33 → MTU 01-01 19:20
PROVIDERS: ADMIT General Practice; ATTEND General Practice
PROC: 0BH17EZ Insertion of Endotracheal Airway into Trachea, Via Natural or Artificial Opening (ICD-10-PCS; 2019-12-20)
PROC: 5A09357 Assistance with Respiratory Ventilation, Less than 24 Consecutive Hours, Continuous Positive Airway Pressure (ICD-10-PCS; 2019-12-20)
PROC: 5A1955Z Respiratory Ventilation, Greater than 96 Consecutive Hours (ICD-10-PCS; principal; 2019-12-21)
PROC: 02HV33Z Insertion of Infusion Device into Superior Vena Cava, Percutaneous Approach (ICD-10-PCS; 2019-12-21)
PROC: B548ZZA Ultrasonography of Superior Vena Cava, Guidance (ICD-10-PCS; 2019-12-21)
PROC: 0B9J8ZZ Drainage of Left Lower Lung Lobe, Via Natural or Artificial Opening Endoscopic (ICD-10-PCS; 2019-12-24)
PROC: 0B9C8ZZ Drainage of Right Upper Lung Lobe, Via Natural or Artificial Opening Endoscopic (ICD-10-PCS; 2019-12-24)
PROC: 0B9G8ZZ Drainage of Left Upper Lung Lobe, Via Natural or Artificial Opening Endoscopic (ICD-10-PCS; 2019-12-24)
PROC: 0B9D8ZZ Drainage of Right Middle Lung Lobe, Via Natural or Artificial Opening Endoscopic (ICD-10-PCS; 2019-12-24)
PROC: 04HY32Z Insertion of Monitoring Device into Lower Artery, Percutaneous Approach (ICD-10-PCS; 2019-12-24)
PROC: 0B9M8ZZ Drainage of Bilateral Lungs, Via Natural or Artificial Opening Endoscopic (ICD-10-PCS; 2019-12-25)
PROC: 0B9M8ZZ Drainage of Bilateral Lungs, Via Natural or Artificial Opening Endoscopic (ICD-10-PCS; 2019-12-26)
DX: J69.0 Pneumonitis due to inhalation of food and vomit (principal); I21.A1 Myocardial infarction type 2; N17.0 Acute kidney failure with tubular necrosis; G72.81 Critical illness myopathy; E43 Unspecified severe protein-calorie malnutrition; J96.21 Acute and chronic respiratory failure with hypoxia; E87.1 Hypo-osmolality and hyponatremia; J45.901 Unspecified asthma with (acute) exacerbation; R65.10 Systemic inflammatory response syndrome (SIRS) of non-infectious origin without acute organ dysfunction; L89.324 Pressure ulcer of left buttock, stage 4; E86.0 Dehydration; J10.08 Influenza due to other identified influenza virus with other specified pneumonia; J15.1 Pneumonia due to Pseudomonas; E87.6 Hypokalemia; L89.156 Pressure-induced deep tissue damage of sacral region; E78.5 Hyperlipidemia, unspecified; Y95 Nosocomial condition; R73.03 Prediabetes; I10 Essential (primary) hypertension; E66.9 Obesity, unspecified; M54.9 Dorsalgia, unspecified; Z68.29 Body mass index [BMI] 29.0-29.9, adult; Z79.899 Other long term (current) drug therapy; Z78.1 Physical restraint status
CPT/HCPCS: 36415; 36600; 71045; 80048; 80053; 80202; 80305; 81001; 82140; 82150; 82550; 82553; 82785; 82803; 82948; 83036; 83605; 83690; 83735; 83880; 84100; 84436; 84443; 84484; 85025; 85610; 85730; 87040; 87070; 87075; 87081; 87086; 87186; 87205; 87804; 89220; 92610; 93005; 94002; 94003; 94640; 96365; 96375; 97110; 97112; 97116; 97161-GP; 97530; 99291; C1751; C9113; J0171; J0360; J0456; J0696; J1644; J1885; J1940; J1956; J2060; J2250; J2270; J2543; J2704; J2920; J2930; J3370; J3475; J3480; J3490; J7030; J7042; J7060; J7613; J7620; J7626; J7644; J8597; Q0092

== ENCOUNTER 2024-04-25 16:10 | Emergency (ER) | payer MEDICAID ==
[~2024-04-25] VITALS: Ht 175.3 cm; Wt 81.6 kg
[~2024-04-25 16:10] MED LIST: ALBU0.0912 IH; ATOR10TA PO; ATOR20TA40 PO; BENZ1LOZ74 MM; BENZ1LOZ93 MM; BUDE180P IH; GUAI-791 PO; LORA10TA19 PO; MECL-303 PO; MONT-72 PO; MUC600 PO; PUL.5N INH; [UNRECOGNIZED DRUG - CODE] PO
[2024-04-25 16:15] VITALS: BP 134/85; PULSE 89; RESP 18; TEMP 99.2; O2SAT 94
[2024-04-25] MEDS: KETOROLAC 30 MG/ML VIAL IM ONE (17:09)
[2024-04-25 17:35] LABS: BILIRUBIN,URINE NEGATIVE (NEGATIVE); BLOOD, URINE 3+ (NEGATIVE); COLOR,URINE YELLOW (YELLOW); LEUKOCYTE ESTERASE ,URINE 1+ (NEGATIVE); NITRITE, URINE POSITIVE (NEGATIVE); PH,URINE 6.5 (5.0-9.0); PROTEIN,URINE 2+ (NEGATIVE); UGLUCOSE NEGATIVE (NEGATIVE)
[2024-04-25 17:44] LABS: APPEARANCE,URINE TURBID (CLEAR)
[2024-04-25 17:45] LABS: BACTERIA,URINE 10-30 (MOD) /HPF (None Seen); RBC,URINE 11-20 (MOD) /HPF (0-5)
[2024-04-25 17:46] LABS: HEMATOCRIT 43.6 % (36-52); HEMOGLOBIN 14.7 g/dL (12.0-18.0); MEAN CORPUSCULAR HEMOGLOBIN 30 pg (27-31); MEAN CORPUSCULAR HGB CONC 34 g/dL (33-37); PLATELET COUNT (AUTO) 130 K/uL (140-450); RED BLOOD CELL COUNT(AUTO) 4.95 MIL/uL (4.20-6.10); RED CELL DISTRIBUTION WIDTH 14.2 % (11.6-13.7); WHITE BLOOD COUNT (AUTO) 21.8 K/uL (4.8-10.8)
[2024-04-25 17:46] LABS: SQUAMOUS EPITHELIAL CELL,UR 0-3 (FEW) /LPF (0-3 (FEW))
[2024-04-25 17:53] LABS: FLU A ANTIGEN negative (NEGATIVE); FLU B ANTIGEN NEGATIVE (NEGATIVE)
[2024-04-25 18:03] LABS: ALBUMIN 3.8 g/dL (3.4-5.0); ANION GAP 12.4 (8-16); CALCIUM 8.9 mg/dL (8.5-10.1); CREATININE 1.2 mg/dL (0.6-1.3); POTASSIUM 3.4 mmol/L (3.5-5.1); TOTAL BILIRUBIN 1.3 mg/dL (0.0-1.0); TOTAL PROTEIN, SERUM 7.6 g/dL (6.4-8.2)
[2024-04-25 18:17] LABS: LYMPHOCYTES % (MANUAL) 9 % (20-46); MONOCYTES % (MANUAL) 1 % (5-12)
[2024-04-25 18:18] LABS: PLATELET ESTIMATE DECREASED
[2024-04-25] MEDS ORDERED: ACETAMINOPHEN EXTRA STRENGTH 500 MG TAB PO ONE (19:00)
[2024-04-25] MEDS ORDERED: IBUP-1842 PO (19:19)
[2024-04-25] MEDS ORDERED: ACET-10509 PO (19:19)
[2024-04-25] MEDS ORDERED: SULF-59 PO (19:21)
[2024-04-25 19:45] VITALS: BP 142/76; PULSE 72; RESP 16; TEMP 98; O2SAT 95
== END 2024-04-25 19:45 | disposition home or self-care (01) ==
LOC: MED 16:10
DX: N30.00 Acute cystitis without hematuria (principal); Z20.822 Contact with and (suspected) exposure to COVID-19; J45.909 Unspecified asthma, uncomplicated; I10 Essential (primary) hypertension; Z79.899 Other long term (current) drug therapy
CPT/HCPCS: 36415; 74018; 74177; 80053; 81001; 83690; 85025; 87086; 87186; 87426; 87804; 96372; 99285; J1885; Q9967

== ENCOUNTER 2024-04-27 10:21 | Emergency (ER) | payer MEDICAID ==
[~2024-04-27] VITALS: Ht 169.9 cm; Wt 83.9 kg
[~2024-04-27 10:21] MED LIST changes: +ACET-10509 PO; +IBUP-1842 PO; +SULF-59 PO
[2024-04-27 10:28] VITALS: BP 137/71; PULSE 78; RESP 18; TEMP 98.1; O2SAT 97
[2024-04-27 11:25] VITALS: O2SAT 97
[2024-04-27] MEDS: SODIUM PHOSPHATE 118 ML ENEM RC ONE (12:28)
[2024-04-27] MEDS ORDERED: MIRABULK PO (12:54)
[2024-04-27 13:30] VITALS: O2SAT 98
[2024-04-27] MEDS: KETOROLAC 60 MG/2 ML VIAL IM ONE (13:42)
[2024-04-27] MEDS ORDERED: MAGN296S70 PO (14:33)
[2024-04-27 14:47] VITALS: BP 135/74; PULSE 82; RESP 16; TEMP 98; O2SAT 99
== END 2024-04-27 14:48 | disposition home or self-care (01) ==
LOC: MED 10:21
DX: R33.9 Retention of urine, unspecified (principal); R10.9 Unspecified abdominal pain; K59.00 Constipation, unspecified; J45.909 Unspecified asthma, uncomplicated; E11.9 Type 2 diabetes mellitus without complications; I10 Essential (primary) hypertension; Z79.4 Long term (current) use of insulin; Z79.899 Other long term (current) drug therapy
CPT/HCPCS: 96372; 99285; J1885